=== PATIENT | female | born 1985 ===

== ENCOUNTER 2023-02-16 20:00 | Emergency (ER) | payer OTHER, SELFPAY ==
--- NOTE | ~2023-02-16 | XR_ITS ---
EXAMINATION: XR CHEST CLINICAL INFORMATION: Chest pain COMPARISON: 10/29/2019 TECHNIQUE: Frontal view of the chest was obtained. FINDINGS: No significant abnormality is noted involving the heart, lungs, mediastinum, bony thorax or soft tissues. XR/XR chest 1V IMPRESSION: Unremarkable examination.
--- NOTE | 2023-02-16 20:04 | ECG_ITS ---
Test Reason : REPEAT Blood Pressure : / mmHG Vent. Rate : 113 BPM Atrial Rate : 113 BPM P-R Int : 158 ms QRS Dur : 086 ms QT Int : 336 ms P-R-T Axes : 031 020 005 degrees QTc Int : 460 ms Sinus tachycardia Possible Left atrial enlargement When compared to the previous EKG of No significant changes seen Referred By: Placido Mitchell Electronically Signed By:ARLETTE BEACH MD
--- NOTE | 2023-02-16 20:06 | ED.CHESTPAIN ---
HPI - Chest Pain General Chief Complaint: Chest Pain Stated Complaint: chest pain,sob Time Seen by Provider: 02/16/23 20:04 Source: patient, family and diagnostic assistant Mode of arrival: ambulatory Limitations: no limitations History of Present Illness HPI narrative: 38-year-old female known history of anxiety brought in with her family for complaint coughing and chest pain. Patient was complaining of coughing with chest pain for the past 2 days, while patient was in triage patient passed out and start to hyperventilate with hand spasm appeared very anxious patient is holding her mid chest complaining of chest pain. Pain has been constant for the past 2 days accompanied with nonproductive cough, no fever no chills, no sick contacts, no recent travel. Patient with known history of anxiety. Related Data Previous Rx's Medication Instructions Recorded albuterol sulfate 2.5 mg/3 mL 2.5 mg (3 mL) inhalation Q4-6H PRN 02/16/23 (0.083 %) solution for nebulization shortness of breath or wheezing #90 mL nirmatrelvir 300 mg (150 mg See Rx Instructions PO .COMPLEX 02/16/23 x2)-ritonavir 100 mg tablet,dose #30 ea pack(EUA) (Paxlovid) Allergies Allergy/AdvReac Type Severity Reaction Status Date / Time No Known Allergies Allergy Unverified 06/07/20 16:46 Review of Systems Review of Systems: All other systems are reviewed and are negative Constitutional: Reports as per HPI and Reports no additional constitutional complaints Eyes: Reports as per HPI and Reports no additional eye complaints Reports system reviewed and no additional complaints, except as documented Cardiovascular: Reports as per HPI and Reports no additional cardiovascular complaints Respiratory: Reports as per HPI and Reports no additional respiratory complaints Gastrointestinal: Reports as per HPI and Reports no additional gastrointestinal complaints Genitourinary: Reports no additional female genitourinary complaints Musculoskeletal: Reports no additional musculoskeletal complaints Skin/Breast: Reports system reviewed and no additional complaints, except as docu Psychiatric: Reports no additional psychiatric complaints Endocrine: Reports no additional endocrine complaints Hematologic/Lymphatic: Reports no additional hematologic/lymphatic complaints Allergic/Immunologic: Reports no additional allergic/immunologic complaints Reports system reviewed and no additional complaints, except as documented and Reports Abnormal speech present [facility] Social History Social History Alcohol intake: never Smoked in Last 30 Days: No Advance Directives: No Advance Directives Information Provided: Yes Physical Exam Vital Signs: Vital Signs: Last Vital Signs Temp 97.8 F 02/16/23 20:10 Pulse 115 H 02/16/23 21:10 Resp 21 H 02/16/23 21:10 BP 187/95 H 02/16/23 20:10 Pulse Ox 100 02/16/23 20:10 O2 Del Method Nasal Cannula 02/16/23 20:10 Oxygen Flow Rate 2 02/16/23 20:10 BMI result Body Mass Index 39.6 Vital signs have been reviewed as appeared to be correct. Blood pressure elevated. Heart rate elevated. Respiration rate normal. Temperature normal. Oxygen saturation normal. Appearance: Extremely anxious, hyperventilating, metacarpophalangeal spasm, Alert. Oriented X3. No acute distress. Head: Normal external exam. Normocephalic. Atraumatic. No Wilde signs noted. No raccoon eyes noted Eyes: PERRLA. EOMI. Conjunctiva and sclera normal. Eyelids normal. ENT: TM's Normal. Pharynx normal. Uvula midline. Moist mucous membranes. No trismus noted. No drooling noted. No muffled voice noted. Neck: Normal inspection. Neck supple. FROM. No adenopathy. Thyroid Normal. No meningeal signs. No neck mass noted. CVS: Normal heart rate and rhythm. Heart sound normal. No murmurs noted. Pulses normal throughout. Respiratory: No respiratory distress. Painless inspiration. Breath sounds normal. No wheezes/rales/rhonchi noted. Chest nontender. No accessory muscle usage noted or decreased air movement noted. Abdomen: Soft and nontender. Bowel sounds normal in all 4 quadrants. No distention noted. No organomegaly noted. No visible injury noted. Back: No CVA tenderness. Full range of motion noted. Skin: Skin warm and dry. Normal skin color. Normal skin turgor. No rashes/lesions/lacerations noted. Extremities: No lower extremity edema. Extremities exhibit normal range of motion. Extremities nontender. Neuro: Oriented X 3. Cranial nerve exam: II-XII are grossly intact No motor deficit. No sensory deficit. Reflexes normal. Course Course Course Narrative: 38-year-old female been having shortness of breath and coughing for the past 2-3 days patient thus is best for COVID, patient presented with acute panic attack probably triggered by coughing, patient at low risk for PE no recent travel, no recent prolonged immobilization, no recent lower extremities tenderness or swelling and patient has a negative D-dimer. Cardiac work up was also unremarkable will discharge the patient on Paxlovid and albuterol. Medications Administered Discontinued Medications Generic Name Dose Route Start Last Admin Trade Name Freq PRN Reason Stop Dose Admin Albuterol Sulfate 2.5 mg 02/16/23 20:56 02/16/23 21:09 Albuterol Sulfate (0.083%) 2.5 Mg/3 Ml Vial.Neb INHALE 02/16/23 20:57 2.5 mg ONCE ONE Administration Albuterol/Ipratropium 3 ml 02/16/23 20:56 02/16/23 21:09 Albuterol/Iprat 2.5/0.5mg 3 Ml Ampul.Neb INHALE 02/16/23 20:57 3 ml ONCE ONE Administration Sodium Chloride 1,000 mls @ 999 mls/hr 02/16/23 20:04 02/16/23 20:10 Ns IV 02/16/23 21:04 999 mls/hr .Q1H1M ONE Administration Lorazepam 2 mg 02/16/23 20:04 02/16/23 20:10 Lorazepam 2 Mg/Ml Vial IVPUSH 02/16/23 20:05 2 mg ONCE ONE Administration Prednisone 40 mg 02/16/23 20:56 02/16/23 21:15 Prednisone 20 Mg Tablet PO 02/16/23 20:57 40 mg ONCE ONE Administration Medical Decision Making Differential Diagnosis Differential Diagnoses: The differential diagnosis associated with the presentation includes (ACS, pulmonary embolism, pneumonia, pneumothorax, COVID-19 infection, electrolyte abnormalities, severe anemia.) Admission/Observation Consideration of admission/observation: Escalation of care including admission/observation considered Lab Data MDM Lab Attestation statement: I reviewed the patient's lab results. 02/16/23 20:06 02/16/23 20:06 Labs: Lab Results 02/16/23 02/16/23 02/16/23 Range/Units 20:06 20:06 20:06 WBC 11.7 H (4.8-10.8) X10*3/uL RBC 4.34 (4.20-5.50) X10*6/uL Hgb 11.5 L (12.0-16.0) g/dl Hct 37.1 (37.0-47.0) % MCV 85.5 (80.0-98.0) fL MCH 26.5 L (27.0-33.0) pg MCHC 31.0 (31.0-35.0) g/dl RDW 12.4 (11.0-16.0) % Plt Count 398 (160-400) X10*3/uL MPV 10.0 (9.4-12.3) fL Immature Gran % (Auto) 0.3 (0.0-0.4) % Neut % (Auto) 64.7 (45-73) % Lymph % (Auto) 23.5 (20-40) % [place] % (Auto) 9.5 (2-11) % Eos % (Auto) 1.5 (0-4) % Baso % (Auto) 0.5 (0-2) % Lymph # (Auto) 2.8 (1.2-4.9) X10*3/uL [place] # (Auto) 1.1 (0.1-1.2) X10*3/uL Eos # (Auto) 0.2 (0.0-0.4) X10*3/uL Baso # (Auto) 0.1 (0.0-0.2) X10*3/uL Abs Immat Gran (auto) 0.03 (0.00-0.03) X10*3/uL Absolute Neuts (auto) 7.6 (2.0-8.3) x10*3/uL Absolute Nucleated RBC 0.000 (0.0-0.012) X10*3/uL Nucleated RBC % (auto) 0.0 (0.0-0.2) /100WBC D-Dimer High Sensitivty NG/ML Sodium 136 (135-145) mmol/L Potassium 4.1 (3.3-5.1) mmol/L Chloride 102 (96-108) mmol/L Carbon Dioxide 20 L (22-29) mmol/L Anion Gap 18 (12-20) BUN 13 (9-16) mg/dL Creatinine 0.84 (0.5-1.4) mg/dL Estim Creat Clear Calc 104.1 Estimated GFR > 60 Random Glucose 182 H (60-115) mg/dL Calcium 9.7 (8.4-10.2) mg/dL Total Bilirubin 0.3 (0.0-1.0) mg/dL Direct Bilirubin 0.1 (0.0-0.5) mg/dL AST 23 (5-31) U/L ALT 29 (0-31) U/L Alkaline Phosphatase 97 (39-117) U/L Troponin I High Sens < 2.7 (<3.5-17.0) ng/L B-Natriuretic Peptide (<100) pg/mL Total Protein 8.4 H (6.5-8.0) g/dL Albumin 4.3 (3.5-5.0) g/dL Lipase 21 (8-78) U/L Urine Color Urine Appearance Urine pH (5.0-9.0) Ur Specific [place] (1.005-1.025) Urine Protein (Neg-Trace) mg/dL Urine Glucose (UA) (Negative) mg/dL Urine Ketones (Negative) mg/dL Urine Blood (Negative) Urine Nitrite (Negative) Ur Leukocyte Esterase (Negative) Influenza Type A (PCR) (Negative) Influenza Type B (PCR) (Negative) RSV RNA Qual (PCR) (Negative) SARS-CoV-2 RNA (RT-PCR) (Negative) 02/16/23 02/16/23 02/16/23 Range/Units 20:06 20:06 20:19 WBC (4.8-10.8) X10*3/uL RBC (4.20-5.50) X10*6/uL Hgb (12.0-16.0) g/dl Hct (37.0-47.0) % MCV (80.0-98.0) fL MCH (27.0-33.0) pg MCHC (31.0-35.0) g/dl RDW (11.0-16.0) % Plt Count (160-400) X10*3/uL MPV (9.4-12.3) fL Immature Gran % (Auto) (0.0-0.4) % Neut % (Auto) (45-73) % Lymph % (Auto) (20-40) % [place] % (Auto) (2-11) % Eos % (Auto) (0-4) % Baso % (Auto) (0-2) % Lymph # (Auto) (1.2-4.9) X10*3/uL [place] # (Auto) (0.1-1.2) X10*3/uL Eos # (Auto) (0.0-0.4) X10*3/uL Baso # (Auto) (0.0-0.2) X10*3/uL Abs Immat Gran (auto) (0.00-0.03) X10*3/uL Absolute Neuts (auto) (2.0-8.3) x10*3/uL Absolute Nucleated RBC (0.0-0.012) X10*3/uL Nucleated RBC % (auto) (0.0-0.2) /100WBC D-Dimer High Sensitivty < 150 NG/ML Sodium (135-145) mmol/L Potassium (3.3-5.1) mmol/L Chloride (96-108) mmol/L Carbon Dioxide (22-29) mmol/L Anion Gap (12-20) BUN (9-16) mg/dL Creatinine (0.5-1.4) mg/dL Estim Creat Clear Calc Estimated GFR Random Glucose (60-115) mg/dL Calcium (8.4-10.2) mg/dL Total Bilirubin (0.0-1.0) mg/dL Direct Bilirubin (0.0-0.5) mg/dL AST (5-31) U/L ALT (0-31) U/L Alkaline Phosphatase (39-117) U/L Troponin I High Sens (<3.5-17.0) ng/L B-Natriuretic Peptide < 10 (<100) pg/mL Total Protein (6.5-8.0) g/dL Albumin (3.5-5.0) g/dL Lipase (8-78) U/L Urine Color Urine Appearance Urine pH (5.0-9.0) Ur Specific [place] (1.005-1.025) Urine Protein (Neg-Trace) mg/dL Urine Glucose (UA) (Negative) mg/dL Urine Ketones (Negative) mg/dL Urine Blood (Negative) Urine Nitrite (Negative) Ur Leukocyte Esterase (Negative) Influenza Type A (PCR) NEGATIVE (Negative) Influenza Type B (PCR) NEGATIVE (Negative) RSV RNA Qual (PCR) NEGATIVE (Negative) SARS-CoV-2 RNA (RT-PCR) POSITIVE A (Negative) 02/16/23 Range/Units 21:10 WBC (4.8-10.8) X10*3/uL RBC (4.20-5.50) X10*6/uL Hgb (12.0-16.0) g/dl Hct (37.0-47.0) % MCV (80.0-98.0) fL MCH (27.0-33.0) pg MCHC (31.0-35.0) g/dl RDW (11.0-16.0) % Plt Count (160-400) X10*3/uL MPV (9.4-12.3) fL Immature Gran % (Auto) (0.0-0.4) % Neut % (Auto) (45-73) % Lymph % (Auto) (20-40) % [place] % (Auto) (2-11) % Eos % (Auto) (0-4) % Baso % (Auto) (0-2) % Lymph # (Auto) (1.2-4.9) X10*3/uL [place] # (Auto) (0.1-1.2) X10*3/uL Eos # (Auto) (0.0-0.4) X10*3/uL Baso # (Auto) (0.0-0.2) X10*3/uL Abs Immat Gran (auto) (0.00-0.03) X10*3/uL Absolute Neuts (auto) (2.0-8.3) x10*3/uL Absolute Nucleated RBC (0.0-0.012) X10*3/uL Nucleated RBC % (auto) (0.0-0.2) /100WBC D-Dimer High Sensitivty NG/ML Sodium (135-145) mmol/L Potassium (3.3-5.1) mmol/L Chloride (96-108) mmol/L Carbon Dioxide (22-29) mmol/L Anion Gap (12-20) BUN (9-16) mg/dL Creatinine (0.5-1.4) mg/dL Estim Creat Clear Calc Estimated GFR Random Glucose (60-115) mg/dL Calcium (8.4-10.2) mg/dL Total Bilirubin (0.0-1.0) mg/dL Direct Bilirubin (0.0-0.5) mg/dL AST (5-31) U/L ALT (0-31) U/L Alkaline Phosphatase (39-117) U/L Troponin I High Sens (<3.5-17.0) ng/L B-Natriuretic Peptide (<100) pg/mL Total Protein (6.5-8.0) g/dL Albumin (3.5-5.0) g/dL Lipase (8-78) U/L Urine Color Yellow Urine Appearance Clear Urine pH 6.5 (5.0-9.0) Ur Specific [place] 1.010 (1.005-1.025) Urine Protein Negative (Neg-Trace) mg/dL Urine Glucose (UA) Negative (Negative) mg/dL Urine Ketones Negative (Negative) mg/dL Urine Blood Negative (Negative) Urine Nitrite Negative (Negative) Ur Leukocyte Esterase Negative (Negative) Influenza Type A (PCR) (Negative) Influenza Type B (PCR) (Negative) RSV RNA Qual (PCR) (Negative) SARS-CoV-2 RNA (RT-PCR) (Negative) Independent Interpretation I performed an independent interpretation of an: EKG (Sinus tachycardia at 113 beats per minutes, normal axis deviation, no ST-T changes.) and Plain X-Ray (Chest: No acute intrathoracic pathology.) Radiology Impression Discussion of test interpretation with radiology: I have reviewed the radiologist's reading. Discharge Plan Discharge Clinical Impression: COVID-19, Panic attack Patient Disposition: Home, Self-Care Instructions: COVID-19 (Coronavirus Disease 2019) (ED) Additional Instructions: Frequent hand washing, wear the mask at all times, keep social distancing, self-quarantine, drink plenty of hot drinks. Prescriptions: New Paxlovid (EUA) 300 mg (150 mg x 2)-100 mg tablets,dose pack See Rx Instructions .ROUTE .COMPLEX Qty: 30 0RF Rx Instructions: take TWO 150 mg tablets of nirmatrelvir with ONE 100 mg tablet of ritonavir twice daily for 5 days albuterol sulfate 2.5 mg /3 mL (0.083 %) solution for nebulization 2.5 mg inhalation Q4-6H PRN (Reason: shortness of breath or wheezing) Qty: 90 0RF Referrals: Rosalie Parson MD [Primary Care Provider] -
[2023-02-16 20:10] VITALS: BP 187/95; PULSE 133; RESP 19; TEMP 36.6; O2SAT 100; BMI 39.6
[2023-02-16] MEDS: 0.9 % Sodium Chloride 1,000 ML 999 ML IV (20:10)
[2023-02-16] MEDS: LORazepam 2 MG/ML VIAL IVPUSH (20:10)
[2023-02-16 20:12] LABS: MANUAL DIFF FLAG NO
[2023-02-16 20:14] VITALS: RESP 45
[2023-02-16 20:17] LABS: Basophils Absolute Auto 0.1 X10*3/uL (0.0-0.2); Basophils Percent Auto 0.5 % (0-2); Eosinophils Absolute Auto 0.2 X10*3/uL (0.0-0.4); Eosinophils Percent Auto 1.5 % (0-4); Hematocrit 37.1 % (37.0-47.0); Hemoglobin 11.5 g/dl (12.0-16.0); Imm Gran Abs Auto 0.03 X10*3/uL (0.00-0.03); Imm Gran Pct Auto 0.3 % (0.0-0.4); Lymphocytes Absolute Auto 2.8 X10*3/uL (1.2-4.9); Lymphocytes Percent Auto 23.5 % (20-40); Mean Corpuscular Hemoglobin 26.5 pg (27.0-33.0); Mean Corpuscular Volume 85.5 fL (80.0-98.0); Monocytes Absolute Auto 1.1 X10*3/uL (0.1-1.2); Monocytes Percent Auto 9.5 % (2-11); Neutrophils Absolute Auto 7.6 x10*3/uL (2.0-8.3); Neutrophils Percent Auto 64.7 % (45-73); Platelet Count 398 X10*3/uL (160-400); Red Blood Count 4.34 X10*6/uL (4.20-5.50); Red Cell Distribution Width 12.4 % (11.0-16.0); White Blood Count 11.7 X10*3/uL (4.8-10.8)
--- NOTE | 2023-02-16 20:21 | MHC.EDTECH ---
This tech performed an EKG on this Pt upon arrival @1908. Due to patient moving and not being able to stand still a repeat EKG was ordered by .
[2023-02-16 20:30] LABS: Alanine Aminotransferase 29 U/L (0-31); Albumin Level 4.3 g/dL (3.5-5.0); Alkaline Phosphatase 97 U/L (39-117); Anion Gap 18 (12-20); Aspartate Amino Transferase 23 U/L (5-31); Bilirubin Direct 0.1 mg/dL (0.0-0.5); Bilirubin Total 0.3 mg/dL (0.0-1.0); Blood Urea Nitrogen 13 mg/dL (9-16); Calcium 9.7 mg/dL (8.4-10.2); Carbon Dioxide 20 mmol/L (22-29); Chloride 102 mmol/L (96-108); Creatinine Clr Calc Pharmacy 104.1; Estimated Glomerular Filt Rate > 60; Glucose Random 182 mg/dL (60-115); Lipase 21 U/L (8-78); Potassium 4.1 mmol/L (3.3-5.1); Sodium 136 mmol/L (135-145); Total Protein 8.4 g/dL (6.5-8.0)
[2023-02-16 20:35] LABS: B Type Natriuretic Peptide < 10 pg/mL (<100)
[2023-02-16 20:41] LABS: Troponin-I High Sensitivity < 2.7 ng/L (<3.5-17.0)
[2023-02-16 20:55] LABS: Influenza A PCR NEGATIVE (Negative); Influenza B PCR NEGATIVE (Negative); Resp Syncy Virus RNA Qual PCR NEGATIVE (Negative); SARS COV2 PCR INHOUSE POSITIVE (Negative)
[2023-02-16] MEDS: Albuterol Sulfate (0.083%) 2.5 MG/3 ML VIAL.NEB INHALE (21:09)
[2023-02-16] MEDS: Albuterol/Iprat 2.5/0.5MG 3 ML AMPUL.NEB INHALE (21:09)
[2023-02-16 21:10] VITALS: PULSE 115; RESP 21; O2SAT 100
[2023-02-16] MEDS: predniSONE 20 MG TABLET 40 MG PO (21:15)
[2023-02-16 21:17] LABS: Appearance Urine Clear; Color Urine Yellow; Glucose Urine UA Negative (Negative); Leukocyte Esterase Urine Negative (Negative); Nitrite Urine Negative (Negative); PH 6.5 (5.0-9.0); Urine Blood Negative (Negative); Urine Ketones Negative (Negative); Urine Protein Negative (Neg-Trace)
[2023-02-16 21:42] LABS: D Dimer High Sensitivity < 150 NG/ML
[2023-02-16 22:33] VITALS: BP 143/89; PULSE 128; RESP 19; TEMP 36.8; O2SAT 98
--- NOTE | 2023-02-16 22:34 | PC.NURSE ---
Dr. Mitchell informed of patient HR 115-128, no new orders at this time,.
== END 2023-02-16 22:37 | disposition home or self-care (01) ==
PROVIDERS: Emergency Provider Emergency Medicine; PCP Internal Medicine
DX: R07.89 Other chest pain (principal); U07.1 COVID-19; R06.02 Shortness of breath; F41.0 Panic disorder [episodic paroxysmal anxiety]; Z79.899 Other long term (current) drug therapy
CPT/HCPCS: 0241U; 36415; 71045; 80048; 80076; 81003; 83690; 83880; 84484; 85025; 85379; 93005; 94640; 96361; 96374; 99284; 99285; J2060

== ENCOUNTER 2023-02-26 16:46 | Emergency (ER) | payer OTHER, SELFPAY ==
[2023-02-26] VITALS (10 sets, daily range): BP systolic 127–175; BP diastolic 83–100; PULSE 91–133; RESP 12–20; TEMP 36.7–37.2; O2SAT 96–100; BMI 36.1
--- NOTE | ~2023-02-26 | XR_ITS ---
EXAMINATION: XR CHEST CLINICAL INFORMATION: Chest pain. COMPARISON: 02/16/2023 chest radiograph. TECHNIQUE: Frontal view of the chest was obtained. FINDINGS: No significant abnormality is noted involving the heart, lungs, mediastinum, bony thorax or soft tissues. XR/XR chest 1V IMPRESSION: No acute cardiopulmonary process.
--- NOTE | ~2023-02-26 | CT_ITS ---
EXAMINATION: CT ANGIOGRAM OF THE CHEST WITH AND WITHOUT CONTRAST (CT PULMONARY ANGIOGRAM FOR PE) CLINICAL INFORMATION: Reason for Exam chest pain tachycardia COMPARISON: Previous chest x-ray from earlier the same day TECHNIQUE: Prior to contrast administration, noncontrast localization images were obtained. Subsequently, multidetector volumetric imaging was performed from the thoracic inlet to below the diaphragms following the administration of 65 mL Omnipaque 350 intravenous contrast. No contrast reaction reported Sagittal, coronal, and MIP oblique sagittal reformatted images were obtained on the CT workstation, uploaded to PACS, and reviewed. This CT examination was performed using dose optimization techniques as appropriate, variously including the following: *Automated exposure control *Adjustment of mA and/or kV according to patient size (this includes techniques or standardized protocols for targeted exams where dose is matched to indication/reason for exam; i.e. extremities or head) *Use of iterative reconstruction technique Total exam dose-length product 343 mGy-cm FINDINGS: QUALITY OF STUDY/CONTRAST BOLUS: Satisfactory. PULMONARY ARTERIES: No pulmonary emboli. THORACIC AORTA: No aneurysm. LUN mm RLL calcified nodule 180/7. 3 mm noncalcified nodule 185/7. PLEURA: No pleural effusion or pneumothorax. MEDIASTINUM: Normal heart size. No pericardial effusion. No hilar or mediastinal lymphadenopathy. No evidence of septal bowing or right heart strain. CORONARY ARTERY CALCIFICATION: None visualized on this study. CHEST WALL/AXILLA: No axillary or internal mammary lymphadenopathy. OSSEOUS STRUCTURES: No acute or suspicious osseous abnormality. UPPER ABDOMEN: Fatty infiltration of the liver. No reflux of contrast into the hepatic veins to suggest elevated right heart pressures. CT/CT angio chest PE protocol IMPRESSION: No evidence of Pulmonary emboli. VTE: Negative
--- NOTE | 2023-02-26 16:58 | ECG_ITS ---
Test Reason : CHEST PAIN Blood Pressure : / mmHG Vent. Rate : 129 BPM Atrial Rate : 129 BPM P-R Int : 150 ms QRS Dur : 082 ms QT Int : 286 ms P-R-T Axes : 053 026 010 degrees QTc Int : 418 ms Sinus tachycardia Possible Left atrial enlargement Borderline ECG When compared with ECG of 16-FEB-2023 20:40, No significant change was found Referred By: Ric Toro Electronically Signed By:Wilfrid Magana
--- NOTE | 2023-02-26 16:59 | ED_ITS ---
HPI - Chest Pain General Chief Complaint: Chest Pain Stated Complaint: Chest pain/COVID+2 weeks ago Time Seen by Provider: 02/26/23 17:16 Source: patient Mode of arrival: ambulatory Limitations: no limitations History of Present Illness HPI narrative: 38-year-old female presents emergency department 2 weeks after being diagnosed COVID patient is very anxious about her cough when she is seen here 2 weeks ago patient started on that since nose given a breathing treatment she states she has been having worsening right-sided chest pain starts in the epigastric region right side she has any fevers chills denies any falls or injuries she does not have any history of asthma. complaint: chest pain Related Data Home Medications Medication Instructions Recorded Confirmed lorazepam 0.5 mg tablet 0.5 mg PO BID PRN Anxiety 02/26/23 02/26/23 prazosin 2 mg capsule 2 mg PO BEDTIME 02/26/23 02/26/23 risperidone 3 mg tablet 3 mg PO BEDTIME 02/26/23 02/26/23 Previous Rx's Medication Instructions Recorded albuterol sulfate 2.5 mg/3 mL 2.5 mg (3 mL) inhalation Q4-6H PRN 02/16/23 (0.083 %) solution for nebulization shortness of breath or wheezing #90 mL albuterol sulfate 90 mcg/actuation 2 puff inhalation Q4-6H PRN 02/17/23 aerosol inhaler (Ventolin HFA) shortness of breath or wheezing #8.5 grams Allergies Allergy/AdvReac Type Severity Reaction Status Date / Time No Known Allergies Allergy Verified 02/26/23 16:53 Review of Systems Review of Systems: Review of systems: General: Patient denies any fever chills recent illness or falls Musculoskeletal: Denies back pain or body aches or other injuries HEENT: denies headache, runny nose, ear pain Respiratory: denies shortness of breath, cough Cardiovascular: right sided chest pain or palpitations : denies dysuria, frequency Abdomen: no nausea vomiting denies abdominal pain Extremities: no swelling, no pain Skin: no diaphoresis Yes all other systems are reviewed and are negative [facility] Social History Social History Alcohol intake: current Alcohol intake frequency: holidays/special occasions only Smoked in Last 30 Days: No Use of substances other than those prescribed or required for medical reasons: No Advance Directives: No Advance Directives Information Provided: No Physical Exam Vital Signs: Vital Signs: Last Vital Signs Temp 98.1 F 02/26/23 21:05 Pulse 92 02/26/23 21:05 Resp 13 02/26/23 21:05 BP 127/83 02/26/23 21:05 Pulse Ox 100 02/26/23 21:05 O2 Del Method Room Air 02/26/23 21:05 BMI result Body Mass Index 36.1 General: Well-appearing well-nourished in no signs of distress HEENT: Normocephalic atraumatic Neck: No signs of JVD, no masses no tenderness or lymphadenopathy Cardiovascular: Regular rate and rhythm Respiratory: Clear to auscultation bilaterally Abdomen: Soft nontender no masses Extremities: Normal pedal pulses no signs of edema Skin: Dry warm no rashes Back: No tenderness full ROM Course Course Course Narrative: 38-year-old female presents for evaluation chest pain. Her heart rate is noted be as high as 144 in triage. I ordered labs, chest x-ray, EKG. Patient was brought straight back to room 17 Reevaluation(s) Reevaluation #1: 1825 patient's heart rate improved from the 140s to 118 with 1 L fluid and a 2 L of fluid patient does have a mild lactic acidosis I will repeat after the 2 L of fluid I will continue with the CTA of the chest. Reevaluation #2: 2004 Still pending CTA HR is much improved she admits to not eating or drinking much. I will repeat troponin and lactic acid level. Reevaluation #3: 2041 Prolonged delay with [facility] to get a cT read. HR has improved repeat lactic and troponin pending at this time. Additional Reevaluation(s): 2126 CTA is read as negative patient was still wait for a the 3rd lactic acid after 4 L fluid patient's heart is 93 she states she feels much better I did send the patient to Dr. Page. Medications Administered Generic Name Dose Route Start Last Admin Trade Name Freq PRN Reason Stop Dose Admin Sodium Chloride 1,000 mls @ 999 mls/hr 02/26/23 21:15 02/26/23 21:05 Ns IV 02/26/23 22:15 999 mls/hr .Q1H1M INDY Administration Discontinued Medications Generic Name Dose Route Start Last Admin Trade Name Abdullahi PRN Reason Stop Dose Admin Acetaminophen 650 mg 02/26/23 17:17 02/26/23 17:28 Acetaminophen 325 Mg Tablet PO 02/26/23 17:18 650 mg ONCE ONE Administration Sodium Chloride 1,000 mls @ 999 mls/hr 02/26/23 17:30 02/26/23 18:34 Ns IV 02/26/23 18:30 Infused .Q1H1M INDY Infusion Sodium Chloride 1,000 mls @ 999 mls/hr 02/26/23 18:30 02/26/23 19:33 Ns IV 02/26/23 19:30 Infused .Q1H1M INDY Infusion Sodium Chloride 1,000 mls @ 999 mls/hr 02/26/23 20:00 02/26/23 21:07 Ns IV 02/26/23 21:00 Infused .Q1H1M INDY Infusion Iohexol 100 ml 02/26/23 19:13 02/26/23 19:13 Iohexol 350 Mg/Ml 100 Ml Infus..Btl IV 02/26/23 19:14 65 ml ONCE ONE Administration Ketorolac Tromethamine 15 mg 02/26/23 17:17 02/26/23 17:28 Ketorolac Tromethamine 15 Mg/Ml Vial IVPUSH 02/26/23 17:18 15 mg ONCE ONE Administration Medical Decision Making Medical Decision Making [facility] Narrative: 38-year-old vaccinated female with COVID 2 weeks ago she states she has since tested negative but still can not having pain to her chest concerned this could be PE also the patient for CTA will check labs x-ray was done initially upon arrival was unremarkable I will give the patient fluids she is tachycardic she is not hypoxic fortunately. Differential Diagnosis Differential Diagnoses: The differential diagnosis associated with the presentation includes Complications of COVID bronchitis pleurisy or PE. Admission/Observation Consideration of admission/observation: Escalation of care including admission/observation considered Consult Healthcare Provider Management of the patient was discussed with: Hospitalist Dr. Morales about the lactic chest pain and story. He wants to get a 3rd lactic acid after 3 liters and to get another liter of fluid. I will check both. CT is still pending. WE both think this could be multifactorial with albuterol and dehydration. Lab Data [facility] Lab Attestation statement: I reviewed the patient's lab results. 02/26/23 17:14 02/26/23 17:14 Labs: Lab Results 02/26/23 02/26/23 02/26/23 Range/Units 17:14 17:14 17:14 WBC 11.5 H (4.8-10.8) X10*3/uL RBC 4.73 (4.20-5.50) X10*6/uL Hgb 12.4 (12.0-16.0) g/dl Hct 40.2 (37.0-47.0) % MCV 85.0 (80.0-98.0) fL MCH 26.2 L (27.0-33.0) pg MCHC 30.8 L (31.0-35.0) g/dl RDW 12.4 (11.0-16.0) % Plt Count 434 H (160-400) X10*3/uL MPV 9.8 (9.4-12.3) fL Immature Gran % (Auto) 0.5 H (0.0-0.4) % Neut % (Auto) 72.6 (45-73) % Lymph % (Auto) 18.9 L (20-40) % [place] % (Auto) 7.1 (2-11) % Eos % (Auto) 0.6 (0-4) % Baso % (Auto) 0.3 (0-2) % Lymph # (Auto) 2.2 (1.2-4.9) X10*3/uL [place] # (Auto) 0.8 (0.1-1.2) X10*3/uL Eos # (Auto) 0.1 (0.0-0.4) X10*3/uL Baso # (Auto) 0.0 (0.0-0.2) X10*3/uL Abs Immat Gran (auto) 0.06 H (0.00-0.03) X10*3/uL Absolute Neuts (auto) 8.4 H (2.0-8.3) x10*3/uL Absolute Nucleated RBC 0.000 (0.0-0.012) X10*3/uL Nucleated RBC % (auto) 0.0 (0.0-0.2) /100WBC PT 11.2 (10.0-13.1) SEC INR 1.0 (0.9-1.1) APTT 31.3 (26.0-36.4) SEC D-Dimer High Sensitivty NG/ML Sodium 136 (135-145) mmol/L Potassium 4.4 (3.3-5.1) mmol/L Chloride 101 (96-108) mmol/L Carbon Dioxide 23 (22-29) mmol/L Anion Gap 16 (12-20) BUN 9 (9-16) mg/dL Creatinine 0.78 (0.5-1.4) mg/dL Estim Creat Clear Calc 106.6 Estimated GFR > 60 Random Glucose 191 H (60-115) mg/dL Lactic Acid (0.5-2.0) mmol/L Lactic Acid F/U @ 2Hr (0.5-2.0) mmol/L Calcium 10.2 (8.4-10.2) mg/dL Magnesium 1.9 (1.6-2.6) mg/dL Total Bilirubin 0.3 (0.0-1.0) mg/dL AST 25 (5-31) U/L ALT 31 (0-31) U/L Alkaline Phosphatase 97 (39-117) U/L Troponin I High Sens (<3.5-17.0) ng/L Total Protein 9.3 H (6.5-8.0) g/dL Albumin 4.7 (3.5-5.0) g/dL Lipase 21 (8-78) U/L Urine Color Urine Appearance Urine pH (5.0-9.0) Ur Specific [place] (1.005-1.025) Urine Protein (Neg-Trace) mg/dL Urine Glucose (UA) (Negative) mg/dL Urine Ketones (Negative) mg/dL Urine Blood (Negative) Urine Nitrite (Negative) Ur Leukocyte Esterase (Negative) Urine Test (NEGATIVE) Influenza Type A (PCR) (Negative) Influenza Type B (PCR) (Negative) RSV RNA Qual (PCR) (Negative) SARS-CoV-2 RNA (RT-PCR) (Negative) 02/26/23 02/26/23 02/26/23 Range/Units 17:14 17:51 17:52 WBC (4.8-10.8) X10*3/uL RBC (4.20-5.50) X10*6/uL Hgb (12.0-16.0) g/dl Hct (37.0-47.0) % MCV (80.0-98.0) fL MCH (27.0-33.0) pg MCHC (31.0-35.0) g/dl RDW (11.0-16.0) % Plt Count (160-400) X10*3/uL MPV (9.4-12.3) fL Immature Gran % (Auto) (0.0-0.4) % Neut % (Auto) (45-73) % Lymph % (Auto) (20-40) % [place] % (Auto) (2-11) % Eos % (Auto) (0-4) % Baso % (Auto) (0-2) % Lymph # (Auto) (1.2-4.9) X10*3/uL [place] # (Auto) (0.1-1.2) X10*3/uL Eos # (Auto) (0.0-0.4) X10*3/uL Baso # (Auto) (0.0-0.2) X10*3/uL Abs Immat Gran (auto) (0.00-0.03) X10*3/uL Absolute Neuts (auto) (2.0-8.3) x10*3/uL Absolute Nucleated RBC (0.0-0.012) X10*3/uL Nucleated RBC % (auto) (0.0-0.2) /100WBC PT (10.0-13.1) SEC INR (0.9-1.1) APTT (26.0-36.4) SEC D-Dimer High Sensitivty < 150 NG/ML Sodium (135-145) mmol/L Potassium (3.3-5.1) mmol/L Chloride (96-108) mmol/L Carbon Dioxide (22-29) mmol/L Anion Gap (12-20) BUN (9-16) mg/dL Creatinine (0.5-1.4) mg/dL Estim Creat Clear Calc Estimated GFR Random Glucose (60-115) mg/dL Lactic Acid 3.1 H* (0.5-2.0) mmol/L Lactic Acid F/U @ 2Hr (0.5-2.0) mmol/L Calcium (8.4-10.2) mg/dL Magnesium (1.6-2.6) mg/dL Total Bilirubin (0.0-1.0) mg/dL AST (5-31) U/L ALT (0-31) U/L Alkaline Phosphatase (39-117) U/L Troponin I High Sens < 2.7 (<3.5-17.0) ng/L Total Protein (6.5-8.0) g/dL Albumin (3.5-5.0) g/dL Lipase (8-78) U/L Urine Color Urine Appearance Urine pH (5.0-9.0) Ur Specific [place] (1.005-1.025) Urine Protein (Neg-Trace) mg/dL Urine Glucose (UA) (Negative) mg/dL Urine Ketones (Negative) mg/dL Urine Blood (Negative) Urine Nitrite (Negative) Ur Leukocyte Esterase (Negative) Urine Test (NEGATIVE) Influenza Type A (PCR) (Negative) Influenza Type B (PCR) (Negative) RSV RNA Qual (PCR) (Negative) SARS-CoV-2 RNA (RT-PCR) (Negative) 02/26/23 02/26/23 02/26/23 Range/Units 18:04 18:04 18:04 WBC (4.8-10.8) X10*3/uL RBC (4.20-5.50) X10*6/uL Hgb (12.0-16.0) g/dl Hct (37.0-47.0) % MCV (80.0-98.0) fL MCH (27.0-33.0) pg MCHC (31.0-35.0) g/dl RDW (11.0-16.0) % Plt Count (160-400) X10*3/uL MPV (9.4-12.3) fL Immature Gran % (Auto) (0.0-0.4) % Neut % (Auto) (45-73) % Lymph % (Auto) (20-40) % [place] % (Auto) (2-11) % Eos % (Auto) (0-4) % Baso % (Auto) (0-2) % Lymph # (Auto) (1.2-4.9) X10*3/uL [place] # (Auto) (0.1-1.2) X10*3/uL Eos # (Auto) (0.0-0.4) X10*3/uL Baso # (Auto) (0.0-0.2) X10*3/uL Abs Immat Gran (auto) (0.00-0.03) X10*3/uL Absolute Neuts (auto) (2.0-8.3) x10*3/uL Absolute Nucleated RBC (0.0-0.012) X10*3/uL Nucleated RBC % (auto) (0.0-0.2) /100WBC PT (10.0-13.1) SEC INR (0.9-1.1) APTT (26.0-36.4) SEC D-Dimer High Sensitivty NG/ML Sodium (135-145) mmol/L Potassium (3.3-5.1) mmol/L Chloride (96-108) mmol/L Carbon Dioxide (22-29) mmol/L Anion Gap (12-20) BUN (9-16) mg/dL Creatinine (0.5-1.4) mg/dL Estim Creat Clear Calc Estimated GFR Random Glucose (60-115) mg/dL Lactic Acid (0.5-2.0) mmol/L Lactic Acid F/U @ 2Hr (0.5-2.0) mmol/L Calcium (8.4-10.2) mg/dL Magnesium (1.6-2.6) mg/dL Total Bilirubin (0.0-1.0) mg/dL AST (5-31) U/L ALT (0-31) U/L Alkaline Phosphatase (39-117) U/L Troponin I High Sens (<3.5-17.0) ng/L Total Protein (6.5-8.0) g/dL Albumin (3.5-5.0) g/dL Lipase (8-78) U/L Urine Color Yellow Urine Appearance Clear Urine pH 6.5 (5.0-9.0) Ur Specific [place] 1.010 (1.005-1.025) Urine Protein Negative (Neg-Trace) mg/dL Urine Glucose (UA) Negative (Negative) mg/dL Urine Ketones Negative (Negative) mg/dL Urine Blood Negative (Negative) Urine Nitrite Negative (Negative) Ur Leukocyte Esterase Negative (Negative) Urine Test NEGATIVE (NEGATIVE) Influenza Type A (PCR) NEGATIVE (Negative) Influenza Type B (PCR) NEGATIVE (Negative) RSV RNA Qual (PCR) NEGATIVE (Negative) SARS-CoV-2 RNA (RT-PCR) NEGATIVE (Negative) 02/26/23 02/26/23 Range/Units 20:18 20:18 WBC (4.8-10.8) X10*3/uL RBC (4.20-5.50) X10*6/uL Hgb (12.0-16.0) g/dl Hct (37.0-47.0) % MCV (80.0-98.0) fL MCH (27.0-33.0) pg MCHC (31.0-35.0) g/dl RDW (11.0-16.0) % Plt Count (160-400) X10*3/uL MPV (9.4-12.3) fL Immature Gran % (Auto) (0.0-0.4) % Neut % (Auto) (45-73) % Lymph % (Auto) (20-40) % [place] % (Auto) (2-11) % Eos % (Auto) (0-4) % Baso % (Auto) (0-2) % Lymph # (Auto) (1.2-4.9) X10*3/uL [place] # (Auto) (0.1-1.2) X10*3/uL Eos # (Auto) (0.0-0.4) X10*3/uL Baso # (Auto) (0.0-0.2) X10*3/uL Abs Immat Gran (auto) (0.00-0.03) X10*3/uL Absolute Neuts (auto) (2.0-8.3) x10*3/uL Absolute Nucleated RBC (0.0-0.012) X10*3/uL Nucleated RBC % (auto) (0.0-0.2) /100WBC PT (10.0-13.1) SEC INR (0.9-1.1) APTT (26.0-36.4) SEC D-Dimer High Sensitivty NG/ML Sodium (135-145) mmol/L Potassium (3.3-5.1) mmol/L Chloride (96-108) mmol/L Carbon Dioxide (22-29) mmol/L Anion Gap (12-20) BUN (9-16) mg/dL Creatinine (0.5-1.4) mg/dL Estim Creat Clear Calc Estimated GFR Random Glucose (60-115) mg/dL Lactic Acid (0.5-2.0) mmol/L Lactic Acid F/U @ 2Hr 3.0 H* (0.5-2.0) mmol/L Calcium (8.4-10.2) mg/dL Magnesium (1.6-2.6) mg/dL Total Bilirubin (0.0-1.0) mg/dL AST (5-31) U/L ALT (0-31) U/L Alkaline Phosphatase (39-117) U/L Troponin I High Sens < 2.7 (<3.5-17.0) ng/L Total Protein (6.5-8.0) g/dL Albumin (3.5-5.0) g/dL Lipase (8-78) U/L Urine Color Urine Appearance Urine pH (5.0-9.0) Ur Specific [place] (1.005-1.025) Urine Protein (Neg-Trace) mg/dL Urine Glucose (UA) (Negative) mg/dL Urine Ketones (Negative) mg/dL Urine Blood (Negative) Urine Nitrite (Negative) Ur Leukocyte Esterase (Negative) Urine Test (NEGATIVE) Influenza Type A (PCR) (Negative) Influenza Type B (PCR) (Negative) RSV RNA Qual (PCR) (Negative) SARS-CoV-2 RNA (RT-PCR) (Negative) Independent Interpretation I performed an independent interpretation of an: Plain X-Ray Interpretation: No acute intrathoracic process seen on portable x-ray Independent Historian Clinical information obtained from an independent historian. History obtained from or confirmed by: Spouse External Record Review External record reviewed: Inpatient record Discharge Plan Discharge Clinical Impression: Chest pain, Acute dehydration Patient Disposition: Still a Patient Instructions: Chest Pain (DC), Dehydration (ED) Additional Instructions: You were seen in the emergency room for chest pain and a rapid heart rate. Your given fluids he had a CT scan of the chest he had labs done which were showed signs of dehydration which improved with fluids. If you have any other concerns please do not hesitate to come back to the emergency room. Prescriptions: No Action albuterol sulfate 2.5 mg /3 mL (0.083 %) solution for nebulization 2.5 mg inhalation Q4-6H PRN (Reason: shortness of breath or wheezing) Qty: 90 0RF albuterol sulfate [Ventolin HFA] 90 mcg/actuation HFA aerosol inhaler 2 puff inhalation Q4-6H PRN (Reason: shortness of breath or wheezing) Qty: 8.5 0RF risperidone 3 mg Tablet 3 mg PO BEDTIME lorazepam 0.5 mg Tablet 0.5 mg PO BID PRN (Reason: Anxiety) prazosin 2 mg Capsule 2 mg PO BEDTIME
[2023-02-26 17:17] LABS: MANUAL DIFF FLAG NO
[2023-02-26 17:24] LABS: Basophils Percent Auto 0.3 % (0-2); Eosinophils Absolute Auto 0.1 X10*3/uL (0.0-0.4); Eosinophils Percent Auto 0.6 % (0-4); Hematocrit 40.2 % (37.0-47.0); Hemoglobin 12.4 g/dl (12.0-16.0); Imm Gran Abs Auto 0.06 X10*3/uL (0.00-0.03); Imm Gran Pct Auto 0.5 % (0.0-0.4); Lymphocytes Absolute Auto 2.2 X10*3/uL (1.2-4.9); Lymphocytes Percent Auto 18.9 % (20-40); Mean Corpuscular HGB Conc 30.8 g/dl (31.0-35.0); Mean Corpuscular Hemoglobin 26.2 pg (27.0-33.0); Mean Platelet Volume 9.8 fL (9.4-12.3); Monocytes Absolute Auto 0.8 X10*3/uL (0.1-1.2); Monocytes Percent Auto 7.1 % (2-11); Neutrophils Absolute Auto 8.4 x10*3/uL (2.0-8.3); Neutrophils Percent Auto 72.6 % (45-73); Platelet Count 434 X10*3/uL (160-400); Red Blood Count 4.73 X10*6/uL (4.20-5.50); Red Cell Distribution Width 12.4 % (11.0-16.0); White Blood Count 11.5 X10*3/uL (4.8-10.8)
[2023-02-26] MEDS: Ketorolac Tromethamine 15 MG/ML VIAL IVPUSH (17:28)
[2023-02-26] MEDS: 0.9 % Sodium Chloride 1,000 ML 999 ML IV ×4 (17:28→21:05)
[2023-02-26] MEDS: Acetaminophen 325 MG TABLET 650 MG PO (17:28)
[2023-02-26 17:31] LABS: Prothrombin Time 11.2 SEC (10.0-13.1)
[2023-02-26 17:33] LABS: Partial Thromboplastin Time 31.3 SEC (26.0-36.4)
[2023-02-26 17:44] LABS: Alanine Aminotransferase 31 U/L (0-31); Albumin Level 4.7 g/dL (3.5-5.0); Alkaline Phosphatase 97 U/L (39-117); Anion Gap 16 (12-20); Aspartate Amino Transferase 25 U/L (5-31); Bilirubin Total 0.3 mg/dL (0.0-1.0); Blood Urea Nitrogen 9 mg/dL (9-16); Calcium 10.2 mg/dL (8.4-10.2); Carbon Dioxide 23 mmol/L (22-29); Chloride 101 mmol/L (96-108); Creatinine Clr Calc Pharmacy 106.6; Estimated Glomerular Filt Rate > 60; Glucose Random 191 mg/dL (60-115); Lipase 21 U/L (8-78); Magnesium 1.9 mg/dL (1.6-2.6); Potassium 4.4 mmol/L (3.3-5.1); Sodium 136 mmol/L (135-145); Total Protein 9.3 g/dL (6.5-8.0)
[2023-02-26 17:48] LABS: Troponin-I High Sensitivity < 2.7 ng/L (<3.5-17.0)
--- NOTE | 2023-02-26 18:05 | MHC.EDTECH ---
patient ekg was done and read by provider ,vitals sign taken ,pt was hooked up to monitor tech ,,2nd sets of blood culture ,lactic acid ,d dimer drawn ,urine sample collected and rsv /covid all sent to lab ,pt resting quietly in bed ,family member at bedside .
[2023-02-26 18:18] LABS: Appearance Urine Clear; Color Urine Yellow; Glucose Urine UA Negative (Negative); Leukocyte Esterase Urine Negative (Negative); Nitrite Urine Negative (Negative); PH 6.5 (5.0-9.0); Urine Blood Negative (Negative); Urine Ketones Negative (Negative); Urine Protein Negative (Neg-Trace)
[2023-02-26 18:19] LABS: UPreg QC Valid YES; Urine Pregnancy NEGATIVE (NEGATIVE)
[2023-02-26 18:23] LABS: D Dimer High Sensitivity < 150 NG/ML
[2023-02-26 18:26] LABS: Lactic Acid 3.1 mmol/L (0.5-2.0)
--- NOTE | 2023-02-26 18:36 | PC.NURSE ---
20g Iv placed in RAC, pt on property assessment monitor, sinus tach. pt verbalizes continued chest pressure
--- NOTE | 2023-02-26 18:44 | PHA.MEDREC ---
Med rec complete, spoke to patient and compared with pharmacy history Pharmacy Consult ? Medication Reconciliation Pharmacy has completed the medication reconciliation.
[2023-02-26 18:50] LABS: Influenza A PCR NEGATIVE (Negative); Influenza B PCR NEGATIVE (Negative); Resp Syncy Virus RNA Qual PCR NEGATIVE (Negative); SARS COV2 PCR INHOUSE NEGATIVE (Negative)
[2023-02-26] MEDS: iohexoL 350 MG/ML 100 ML INFUS..BTL IV (19:13)
[2023-02-26 19:56] LABS: Reflex Lactate? Lactic Acid Added
--- NOTE | 2023-02-26 20:05 | PC.NURSE ---
pt reports continued chest pressure, heart rate has come down to high 90s, low 100s. pt verbalizes feeling better than before. Awaiting repeat trop and lactic
--- NOTE | 2023-02-26 20:21 | MHC.EDTECH ---
REPEATED LACTIC ACID AND TROP DRAWN AND SENT TO LAB .
[2023-02-26 21:05] LABS: Troponin-I High Sensitivity < 2.7 ng/L (<3.5-17.0)
--- NOTE | 2023-02-26 21:19 | PC.NURSE ---
pt updated on plan of care, shannauth liter of NS started, pts HR down to low 90s, states that chest pressure is better, lactic acid re-ordered for 0
--- NOTE | 2023-02-26 22:09 | MHC.EDTECH ---
2200 rounding done ,vitals sign taken repeated lactic acid drawn and sent to lab ,pt family member at bedside ,AUTUMN Bethea ,said it was jennifer for pt to have ice chips .
[2023-02-26 22:21] LABS: Reflex Lactate? 2 Y
[2023-02-26 22:36] LABS: Lactic Acid 2.5 mmol/L (0.5-2.0)
--- NOTE | 2023-02-26 23:19 | ED.CHESTPAIN ---
HPI - Chest Pain General Chief Complaint: Chest Pain Stated Complaint: Chest pain/COVID+2 weeks ago Time Seen by Provider: 02/26/23 17:16 Source: patient Mode of arrival: ambulatory Limitations: no limitations Related Data Home Medications Medication Instructions Recorded Confirmed lorazepam 0.5 mg tablet 0.5 mg PO BID PRN Anxiety 02/26/23 02/26/23 prazosin 2 mg capsule 2 mg PO BEDTIME 02/26/23 02/26/23 risperidone 3 mg tablet 3 mg PO BEDTIME 02/26/23 02/26/23 Previous Rx's Medication Instructions Recorded albuterol sulfate 2.5 mg/3 mL 2.5 mg (3 mL) inhalation Q4-6H PRN 02/16/23 (0.083 %) solution for nebulization shortness of breath or wheezing #90 mL albuterol sulfate 90 mcg/actuation 2 puff inhalation Q4-6H PRN 02/17/23 aerosol inhaler (Ventolin HFA) shortness of breath or wheezing #8.5 grams Allergies Allergy/AdvReac Type Severity Reaction Status Date / Time No Known Allergies Allergy Verified 02/26/23 16:53 [facility] Social History Social History Alcohol intake: current Alcohol intake frequency: holidays/special occasions only Smoked in Last 30 Days: No Use of substances other than those prescribed or required for medical reasons: No Advance Directives: No Advance Directives Information Provided: No Physical Exam Vital Signs: Vital Signs: Last Vital Signs Temp 98.3 F 02/26/23 22:00 Pulse 91 02/26/23 22:14 Resp 18 02/26/23 22:14 BP 139/88 02/26/23 22:14 Pulse Ox 100 02/26/23 22:14 O2 Del Method Room Air 02/26/23 22:14 BMI result Body Mass Index 36.1 Medications Administered Discontinued Medications Generic Name Dose Route Start Last Admin Trade Name Freq PRN Reason Stop Dose Admin Acetaminophen 650 mg 02/26/23 17:17 02/26/23 17:28 Acetaminophen 325 Mg Tablet PO 02/26/23 17:18 650 mg ONCE ONE Administration Sodium Chloride 1,000 mls @ 999 mls/hr 02/26/23 17:30 02/26/23 18:34 Ns IV 02/26/23 18:30 Infused .Q1H1M INDY Infusion Sodium Chloride 1,000 mls @ 999 mls/hr 02/26/23 18:30 02/26/23 19:33 Ns IV 02/26/23 19:30 Infused .Q1H1M INDY Infusion Sodium Chloride 1,000 mls @ 999 mls/hr 02/26/23 20:00 02/26/23 21:07 Ns IV 02/26/23 21:00 Infused .Q1H1M INDY Infusion Sodium Chloride 1,000 mls @ 999 mls/hr 02/26/23 21:15 02/26/23 22:13 Ns IV 02/26/23 22:15 Infused .Q1H1M INDY Infusion Iohexol 100 ml 02/26/23 19:13 02/26/23 19:13 Iohexol 350 Mg/Ml 100 Ml Infus..Btl IV 02/26/23 19:14 65 ml ONCE ONE Administration Ketorolac Tromethamine 15 mg 02/26/23 17:17 02/26/23 17:28 Ketorolac Tromethamine 15 Mg/Ml Vial IVPUSH 02/26/23 17:18 15 mg ONCE ONE Administration Medical Decision Making Medical Decision Making MDM Narrative: - Lab Data 02/26/23 17:14 02/26/23 17:14 Labs: Lab Results 02/26/23 02/26/23 02/26/23 Range/Units 17:14 17:14 17:14 WBC 11.5 H (4.8-10.8) X10*3/uL RBC 4.73 (4.20-5.50) X10*6/uL Hgb 12.4 (12.0-16.0) g/dl Hct 40.2 (37.0-47.0) % MCV 85.0 (80.0-98.0) fL MCH 26.2 L (27.0-33.0) pg MCHC 30.8 L (31.0-35.0) g/dl RDW 12.4 (11.0-16.0) % Plt Count 434 H (160-400) X10*3/uL MPV 9.8 (9.4-12.3) fL Immature Gran % (Auto) 0.5 H (0.0-0.4) % Neut % (Auto) 72.6 (45-73) % Lymph % (Auto) 18.9 L (20-40) % [place] % (Auto) 7.1 (2-11) % Eos % (Auto) 0.6 (0-4) % Baso % (Auto) 0.3 (0-2) % Lymph # (Auto) 2.2 (1.2-4.9) X10*3/uL [place] # (Auto) 0.8 (0.1-1.2) X10*3/uL Eos # (Auto) 0.1 (0.0-0.4) X10*3/uL Baso # (Auto) 0.0 (0.0-0.2) X10*3/uL Abs Immat Gran (auto) 0.06 H (0.00-0.03) X10*3/uL Absolute Neuts (auto) 8.4 H (2.0-8.3) x10*3/uL Absolute Nucleated RBC 0.000 (0.0-0.012) X10*3/uL Nucleated RBC % (auto) 0.0 (0.0-0.2) /100WBC PT 11.2 (10.0-13.1) SEC INR 1.0 (0.9-1.1) APTT 31.3 (26.0-36.4) SEC D-Dimer High Sensitivty NG/ML Sodium 136 (135-145) mmol/L Potassium 4.4 (3.3-5.1) mmol/L Chloride 101 (96-108) mmol/L Carbon Dioxide 23 (22-29) mmol/L Anion Gap 16 (12-20) BUN 9 (9-16) mg/dL Creatinine 0.78 (0.5-1.4) mg/dL Estim Creat Clear Calc 106.6 Estimated GFR > 60 Random Glucose 191 H (60-115) mg/dL Lactic Acid (0.5-2.0) mmol/L Lactic Acid F/U @ 2Hr (0.5-2.0) mmol/L Calcium 10.2 (8.4-10.2) mg/dL Magnesium 1.9 (1.6-2.6) mg/dL Total Bilirubin 0.3 (0.0-1.0) mg/dL AST 25 (5-31) U/L ALT 31 (0-31) U/L Alkaline Phosphatase 97 (39-117) U/L Troponin I High Sens (<3.5-17.0) ng/L Total Protein 9.3 H (6.5-8.0) g/dL Albumin 4.7 (3.5-5.0) g/dL Lipase 21 (8-78) U/L Urine Color Urine Appearance Urine pH (5.0-9.0) Ur Specific [place] (1.005-1.025) Urine Protein (Neg-Trace) mg/dL Urine Glucose (UA) (Negative) mg/dL Urine Ketones (Negative) mg/dL Urine Blood (Negative) Urine Nitrite (Negative) Ur Leukocyte Esterase (Negative) Urine Test (NEGATIVE) Influenza Type A (PCR) (Negative) Influenza Type B (PCR) (Negative) RSV RNA Qual (PCR) (Negative) SARS-CoV-2 RNA (RT-PCR) (Negative) 02/26/23 02/26/23 02/26/23 Range/Units 17:14 17:51 17:52 WBC (4.8-10.8) X10*3/uL RBC (4.20-5.50) X10*6/uL Hgb (12.0-16.0) g/dl Hct (37.0-47.0) % MCV (80.0-98.0) fL MCH (27.0-33.0) pg MCHC (31.0-35.0) g/dl RDW (11.0-16.0) % Plt Count (160-400) X10*3/uL MPV (9.4-12.3) fL Immature Gran % (Auto) (0.0-0.4) % Neut % (Auto) (45-73) % Lymph % (Auto) (20-40) % [place] % (Auto) (2-11) % Eos % (Auto) (0-4) % Baso % (Auto) (0-2) % Lymph # (Auto) (1.2-4.9) X10*3/uL [place] # (Auto) (0.1-1.2) X10*3/uL Eos # (Auto) (0.0-0.4) X10*3/uL Baso # (Auto) (0.0-0.2) X10*3/uL Abs Immat Gran (auto) (0.00-0.03) X10*3/uL Absolute Neuts (auto) (2.0-8.3) x10*3/uL Absolute Nucleated RBC (0.0-0.012) X10*3/uL Nucleated RBC % (auto) (0.0-0.2) /100WBC PT (10.0-13.1) SEC INR (0.9-1.1) APTT (26.0-36.4) SEC D-Dimer High Sensitivty < 150 NG/ML Sodium (135-145) mmol/L Potassium (3.3-5.1) mmol/L Chloride (96-108) mmol/L Carbon Dioxide (22-29) mmol/L Anion Gap (12-20) BUN (9-16) mg/dL Creatinine (0.5-1.4) mg/dL Estim Creat Clear Calc Estimated GFR Random Glucose (60-115) mg/dL Lactic Acid 3.1 H* (0.5-2.0) mmol/L Lactic Acid F/U @ 2Hr (0.5-2.0) mmol/L Calcium (8.4-10.2) mg/dL Magnesium (1.6-2.6) mg/dL Total Bilirubin (0.0-1.0) mg/dL AST (5-31) U/L ALT (0-31) U/L Alkaline Phosphatase (39-117) U/L Troponin I High Sens < 2.7 (<3.5-17.0) ng/L Total Protein (6.5-8.0) g/dL Albumin (3.5-5.0) g/dL Lipase (8-78) U/L Urine Color Urine Appearance Urine pH (5.0-9.0) Ur Specific [place] (1.005-1.025) Urine Protein (Neg-Trace) mg/dL Urine Glucose (UA) (Negative) mg/dL Urine Ketones (Negative) mg/dL Urine Blood (Negative) Urine Nitrite (Negative) Ur Leukocyte Esterase (Negative) Urine Test (NEGATIVE) Influenza Type A (PCR) (Negative) Influenza Type B (PCR) (Negative) RSV RNA Qual (PCR) (Negative) SARS-CoV-2 RNA (RT-PCR) (Negative) 02/26/23 02/26/23 02/26/23 Range/Units 18:04 18:04 18:04 WBC (4.8-10.8) X10*3/uL RBC (4.20-5.50) X10*6/uL Hgb (12.0-16.0) g/dl Hct (37.0-47.0) % MCV (80.0-98.0) fL MCH (27.0-33.0) pg MCHC (31.0-35.0) g/dl RDW (11.0-16.0) % Plt Count (160-400) X10*3/uL MPV (9.4-12.3) fL Immature Gran % (Auto) (0.0-0.4) % Neut % (Auto) (45-73) % Lymph % (Auto) (20-40) % [place] % (Auto) (2-11) % Eos % (Auto) (0-4) % Baso % (Auto) (0-2) % Lymph # (Auto) (1.2-4.9) X10*3/uL [place] # (Auto) (0.1-1.2) X10*3/uL Eos # (Auto) (0.0-0.4) X10*3/uL Baso # (Auto) (0.0-0.2) X10*3/uL Abs Immat Gran (auto) (0.00-0.03) X10*3/uL Absolute Neuts (auto) (2.0-8.3) x10*3/uL Absolute Nucleated RBC (0.0-0.012) X10*3/uL Nucleated RBC % (auto) (0.0-0.2) /100WBC PT (10.0-13.1) SEC INR (0.9-1.1) APTT (26.0-36.4) SEC D-Dimer High Sensitivty NG/ML Sodium (135-145) mmol/L Potassium (3.3-5.1) mmol/L Chloride (96-108) mmol/L Carbon Dioxide (22-29) mmol/L Anion Gap (12-20) BUN (9-16) mg/dL Creatinine (0.5-1.4) mg/dL Estim Creat Clear Calc Estimated GFR Random Glucose (60-115) mg/dL Lactic Acid (0.5-2.0) mmol/L Lactic Acid F/U @ 2Hr (0.5-2.0) mmol/L Calcium (8.4-10.2) mg/dL Magnesium (1.6-2.6) mg/dL Total Bilirubin (0.0-1.0) mg/dL AST (5-31) U/L ALT (0-31) U/L Alkaline Phosphatase (39-117) U/L Troponin I High Sens (<3.5-17.0) ng/L Total Protein (6.5-8.0) g/dL Albumin (3.5-5.0) g/dL Lipase (8-78) U/L Urine Color Yellow Urine Appearance Clear Urine pH 6.5 (5.0-9.0) Ur Specific [place] 1.010 (1.005-1.025) Urine Protein Negative (Neg-Trace) mg/dL Urine Glucose (UA) Negative (Negative) mg/dL Urine Ketones Negative (Negative) mg/dL Urine Blood Negative (Negative) Urine Nitrite Negative (Negative) Ur Leukocyte Esterase Negative (Negative) Urine Test NEGATIVE (NEGATIVE) Influenza Type A (PCR) NEGATIVE (Negative) Influenza Type B (PCR) NEGATIVE (Negative) RSV RNA Qual (PCR) NEGATIVE (Negative) SARS-CoV-2 RNA (RT-PCR) NEGATIVE (Negative) 02/26/23 02/26/23 02/26/23 Range/Units 20:18 20:18 22:09 WBC (4.8-10.8) X10*3/uL RBC (4.20-5.50) X10*6/uL Hgb (12.0-16.0) g/dl Hct (37.0-47.0) % MCV (80.0-98.0) fL MCH (27.0-33.0) pg MCHC (31.0-35.0) g/dl RDW (11.0-16.0) % Plt Count (160-400) X10*3/uL MPV (9.4-12.3) fL Immature Gran % (Auto) (0.0-0.4) % Neut % (Auto) (45-73) % Lymph % (Auto) (20-40) % [place] % (Auto) (2-11) % Eos % (Auto) (0-4) % Baso % (Auto) (0-2) % Lymph # (Auto) (1.2-4.9) X10*3/uL [place] # (Auto) (0.1-1.2) X10*3/uL Eos # (Auto) (0.0-0.4) X10*3/uL Baso # (Auto) (0.0-0.2) X10*3/uL Abs Immat Gran (auto) (0.00-0.03) X10*3/uL Absolute Neuts (auto) (2.0-8.3) x10*3/uL Absolute Nucleated RBC (0.0-0.012) X10*3/uL Nucleated RBC % (auto) (0.0-0.2) /100WBC PT (10.0-13.1) SEC INR (0.9-1.1) APTT (26.0-36.4) SEC D-Dimer High Sensitivty NG/ML Sodium (135-145) mmol/L Potassium (3.3-5.1) mmol/L Chloride (96-108) mmol/L Carbon Dioxide (22-29) mmol/L Anion Gap (12-20) BUN (9-16) mg/dL Creatinine (0.5-1.4) mg/dL Estim Creat Clear Calc Estimated GFR Random Glucose (60-115) mg/dL Lactic Acid 2.5 H* (0.5-2.0) mmol/L Lactic Acid F/U @ 2Hr 3.0 H* (0.5-2.0) mmol/L Calcium (8.4-10.2) mg/dL Magnesium (1.6-2.6) mg/dL Total Bilirubin (0.0-1.0) mg/dL AST (5-31) U/L ALT (0-31) U/L Alkaline Phosphatase (39-117) U/L Troponin I High Sens < 2.7 (<3.5-17.0) ng/L Total Protein (6.5-8.0) g/dL Albumin (3.5-5.0) g/dL Lipase (8-78) U/L Urine Color Urine Appearance Urine pH (5.0-9.0) Ur Specific [place] (1.005-1.025) Urine Protein (Neg-Trace) mg/dL Urine Glucose (UA) (Negative) mg/dL Urine Ketones (Negative) mg/dL Urine Blood (Negative) Urine Nitrite (Negative) Ur Leukocyte Esterase (Negative) Urine Test (NEGATIVE) Influenza Type A (PCR) (Negative) Influenza Type B (PCR) (Negative) RSV RNA Qual (PCR) (Negative) SARS-CoV-2 RNA (RT-PCR) (Negative) Discharge Plan Discharge Clinical Impression: Chest pain, Acute dehydration Patient Disposition: Still a Patient Instructions: Chest Pain (DC), Dehydration (ED) Additional Instructions: You were seen in the emergency room for chest pain and a rapid heart rate. Your given fluids he had a CT scan of the chest he had labs done which were showed signs of dehydration which improved with fluids. If you have any other concerns please do not hesitate to come back to the emergency room. Prescriptions: No Action albuterol sulfate 2.5 mg /3 mL (0.083 %) solution for nebulization 2.5 mg inhalation Q4-6H PRN (Reason: shortness of breath or wheezing) Qty: 90 0RF albuterol sulfate [Ventolin HFA] 90 mcg/actuation HFA aerosol inhaler 2 puff inhalation Q4-6H PRN (Reason: shortness of breath or wheezing) Qty: 8.5 0RF risperidone 3 mg Tablet 3 mg PO BEDTIME lorazepam 0.5 mg Tablet 0.5 mg PO BID PRN (Reason: Anxiety) prazosin 2 mg Capsule 2 mg PO BEDTIME
[2023-02-27 00:11] LABS: Reflex Lactate? Lactic Acid Added
[2023-02-27 00:30] VITALS: BP 148/84; PULSE 81; RESP 16; O2SAT 100
== END 2023-02-27 00:49 | disposition home or self-care (01) ==
PROVIDERS: Physician Assistant; Emergency Provider Student in an Organized Health Care Education/Training Program; PCP Internal Medicine
DX: R07.9 Chest pain, unspecified (principal); E86.0 Dehydration; Z20.822 Contact with and (suspected) exposure to COVID-19; Z20.828 Contact with and (suspected) exposure to other viral communicable diseases
CPT/HCPCS: 0241U; 36415; 71045; 71275; 80053; 81003; 81025; 83605; 83690; 83735; 84484; 85025; 85379; 85610; 85730; 87040; 93005; 96361; 96374; 99285; J1885; Q9967

== ENCOUNTER 2023-04-09 07:19 | Outpatient (AMB) | payer OTHER, SELFPAY ==
--- NOTE | 2023-04-09 07:36 | MHC.PC.OV ---
Vital Signs 04/09/23 07:38 Height 5 ft 3 in Weight 205 lb BMI 36.3 BP 138/86 Blood Pressure Location Lt brachial Position Sitting Intake Visit Reasons: [employer]-Requesting Physical Exam Intake Note: New patient, physical exam Materials Coordinator Required: No Accompanied by: Self / Same As Patient Allergies No Known Allergies Allergy (Verified 04/09/23 07:52) Medication List - Last Reconciled 04/09/23 by Rosalie Cantu MD lorazepam 0.5 mg PO BID PRN prazosin 2 mg PO BEDTIME risperidone 3 mg PO BEDTIME Tobacco use date assessed: 04/09/23 Dental Screening Dental Screen Date: 04/09/23 Did you have a dental visit in the last 12 months?: Yes Did you have a dental problem in the last 6 months where you did not have access to dental care?: No Was dental information given to patient?: Patient has dentist HPI HPI Comments History of Present Illness Details This is a 38-year-old female with mild major depression, anxiety, impaired glucose tolerance and migraines that comes to establish care. For depression with anxiety she follows with Behavioral Health. Still has insomnia and I will add melatonin. Has elevated random blood glucose but denies any polydipsia or unintentional weight loss. Does have some polyuria as per patient. Migraines happen twice a week. No neurological deficit associated with a migraine. She is obese with a BMI of 36.3 and was advised to diet and exercise. [facility] Surgical History No pertinent past surgical history Family History Mother Diabetes Hypertension Arthritis Father No problems noted. Family/Other Mental health disorder Substance use disorder Social History (Updated 04/09/23 @ 07:56 by Rosalie Cantu MD) Housing: Apartment Alcohol intake: never Patient Tobacco Use Status: Never used Tobacco e-Cigarette/Vaping Use: Never Used Second Hand Smoke Exposure: No service: No Current occupational status: unemployed Cognitive needs: No Hearing needs: No Vision needs: No Questionnaire PHQ-9 Over the last 2 weeks, how often have you been bothered by any of the following problems? 1. Little interest or pleasure in doing things: not at all 2. Feeling down, depressed, or hopeless: several days 3. Trouble falling or staying asleep, or sleeping too much: several days 4. Feeling tired or having little energy: several days 5. Poor appetite or overeating: several days 6. Feeling bad about yourself - or that you are a failure or have let yourself or your family down: not at all 7. Trouble concentrating on things, such as reading the newspaper or watching television: not at all 8. Moving or speaking so slowly that other people could have noticed. Or the opposite - being so fidgety or restless that you have been moving around a lot more than usual: several days 9. Thoughts that you would be better off or of hurting yourself in some way: not at all Total score: 5 Depression Screening Interpretation: Positive Depression Screening Follow-up: Existing condition, In treatment and Community Mental Health Worker F/U 91327 - PHQ-9 Billing: Yes Source: Developed by Drs. Ernie Roberts, Yesy Hook, Javed Aden and colleagues, with an educational fiona from [employer]. Thrive Questionnaire Date Thrive assessed: 04/09/23 I am a: Patient What is your living situation today?: I have a steady place to live Within the past 12 months, did the food you bought not last and you didn't have the money to get more?: Never true Within the past 12 months, did you worry whether your food would run out before you got money to buy more?: Never true Do you have trouble paying for medicines?: No Do you have trouble getting transportation to medical appointments?: No Do you have trouble paying your heating and electricity bill?: No Do you have trouble taking care of your child, family member or friend?: No Do you have trouble with day-to-day activities such as bathing, preparing meals, shopping, managing finances, etc.?: No Are you currently unemployed and looking for a job?: No Are you interested in more education?: No Please select the resources that you would like help with: None Currently or been in a relationship where the following occur: no concerns reported AUDIT C Alcohol Use Questionnaire (AUDIT-C) 1. How often do you have a drink containing alcohol?: Never Total Score: 0 Score Reviewed/Action Taken: No ENIO-7 AMB Questionnaire ENIO-7 Date ENIO - 7 assessed: 04/09/23 Feeling nervous, anxious, or on edge: 1 = Several days Not being able to stop or control worryin = Not at all Worrying too much about different things: 1 = Several days Trouble relaxin = Several days Being so restless that it is hard to sit still: 0 = Not at all Becoming easily annoyed or irritable: 1 = Several days Feeling afraid as if something awful might happen: 1 = Several days Total ENIO-7 score (0-4 normal; 5-9 mild; 10-14 moderate; 15-21 severe): 5 Source: Developed by Drs. Ernie Roberts, Yesy Hook, Javed Aden and colleagues, with an educational fiona from [employer]. ENIO-7 Assessment Billing ENIO-7 Assessment Tool: ENIO-7 Assessment 06556 Review of Systems Const All systems reviewed & are unremarkable except as noted in HPI and below Eyes Reports no additional complaints, Denies change in vision and Denies other visual disturbances Card Denies chest pain at rest, Denies chest pain with activity, Denies edema, Denies irregular heart rhythm, Denies claudication, Denies dyspnea, Denies dyspnea on exertion, Denies orthopnea, Denies paroxysmal nocturnal dyspnea and Denies slow heart rate Resp Denies cough, Denies dyspnea and Denies dyspnea on exertion GI Denies abdominal pain, Denies change in bowel habits, Denies excessive flatus, Denies nausea and Denies vomiting Denies urinary incontinence, Denies urinary hesitancy and Denies urinary urgency Musc Denies abnormal gait, Denies atrophy, Denies deformity and Denies limited range of motion Skin/Breast Denies bleeding lesions, Denies changing lesions and Denies rash Neuro Denies abnormal gait and Denies lack of coordination Physical exam (Primary Care) Vital Signs: Last Vital Signs BP 138/86 04/09/23 07:38 BMI result Body Mass Index 36.3 Tobacco/Smoking Status: Tobacco use Status Tobacco use date assessed 04/09/23 04/09/23 07:51 Patient Tobacco Use Status Never used Tobacco 04/09/23 07:51 e-Cigarette/Vaping Use Never Used 04/09/23 07:51 PHQ-9: PHQ-9 Score PHQ-9: Total score 5 07/20/23 07:51 Depression Screening Interpretation: Positive Depression Screening Follow-up: Existing condition, In treatment and Community Mental Health Worker F/U Thrive Assessment: Date of Thrive Assessment Date Thrive assessed 04/09/23 04/09/23 07:51 Currently or been in a relationship where the following occur: no concerns reported Eyes General: appearance normal, both eyes and all related structures Eyelids: Yes eyelids normal Conjunctivae: conjunctivae normal Neck Neck: Yes normal visual inspection and Yes supple Resp Effort & Inspection: normal respiratory effort Auscultation: clear to auscultation bilaterally Cardio Jugular venous distension: no JVD Rate: regular rate Rhythm: regular rhythm Heart sounds: S1 normal heart sound present and S2 normal heart sound present Extrem General: Yes full ROM Assessment and Plan Assessment & Plan (1) Mild major depression: Code(s): F32.0 - Major depressive disorder, single episode, mild Plan: Continue Risperdal. Follow-up with counseling. (2) Anxiety: Code(s): F41.9 - Anxiety disorder, unspecified Plan: Continue benzodiazepines as needed. Follow-up with counseling. (3) Migraines: Code(s): G43.909 - Migraine, unspecified, not intractable, without status migrainosus Plan: Start sumatriptan as needed. (4) Impaired glucose tolerance: Code(s): R73.02 - Impaired glucose tolerance (oral) Plan: Repeat fasting blood glucose. Orders: Orders Comprehensive [place]. Panel Fast Today R73.02 - Impaired glucose tolerance (oral) Lipid Panel Today E66.9 - Obesity, unspecified, Z68.36 - Body mass index [BMI] 36.0-36.9, adult Thyroid Stimulating Hormone Today E66.9 - Obesity, unspecified, Z68.36 - Body mass index [BMI] 36.0-36.9, adult Complete Blood Count Auto Diff Today D72.829 - Elevated white blood cell count, unspecified Medications: New sumatriptan succinate do not exceed 8 doses per 24 hrs 25 mg PO Q2-4H 30 days PRN 9 tabs 2RF migraine headache G43.909 - Migraine, unspecified, not intractable, without status migrainosus melatonin 10 mg (2 x 5 mg) PO BEDTIME 30 days PRN 60 tabs 0RF sleep Coding Level of Care Code New Pt Level 4 (62429) Diagnoses Mild major depression F32.0 Anxiety F41.9 Migraines G43.909 Impaired glucose tolerance R73.02 Additional Codes ENIO-7 Assessment Billing - ENIO-7 Assessment Tool: ENIO-7 Assessment 24461 ([id number]) Time Spent (min) 24
[2023-04-09 07:38] VITALS: BP 138/86; BMI 36.3
== END 2023-04-09 08:02 | disposition home or self-care (01) ==
PROVIDERS: PCP Internal Medicine; Visit Provider Internal Medicine
DX: F32.0 Major depressive disorder, single episode, mild (principal); F41.9 Anxiety disorder, unspecified; G43.909 Migraine, unspecified, not intractable, without status migrainosus; R73.02 Impaired glucose tolerance (oral)
CPT/HCPCS: 99204

== ENCOUNTER 2023-04-09 08:12 | Outpatient (REF) | payer OTHER, SELFPAY ==
[2023-04-09 08:21] LABS: MANUAL DIFF FLAG NO
[2023-04-09 09:25] LABS: Basophils Absolute Auto 0.1 X10*3/uL (0.0-0.2); Basophils Percent Auto 0.8 % (0-2); Eosinophils Absolute Auto 0.2 X10*3/uL (0.0-0.4); Eosinophils Percent Auto 2.5 % (0-4); Hematocrit 35.7 % (37.0-47.0); Hemoglobin 10.9 g/dl (12.0-16.0); Imm Gran Abs Auto 0.03 X10*3/uL (0.00-0.03); Imm Gran Pct Auto 0.4 % (0.0-0.4); Lymphocytes Absolute Auto 2.5 X10*3/uL (1.2-4.9); Lymphocytes Percent Auto 29.3 % (20-40); Mean Corpuscular HGB Conc 30.5 g/dl (31.0-35.0); Mean Corpuscular Hemoglobin 26.6 pg (27.0-33.0); Mean Corpuscular Volume 87.1 fL (80.0-98.0); Mean Platelet Volume 10.6 fL (9.4-12.3); Monocytes Absolute Auto 0.7 X10*3/uL (0.1-1.2); Monocytes Percent Auto 8.3 % (2-11); Neutrophils Percent Auto 58.7 % (45-73); Platelet Count 400 X10*3/uL (160-400); Red Cell Distribution Width 12.5 % (11.0-16.0); White Blood Count 8.6 X10*3/uL (4.8-10.8)
[2023-04-09 10:00] LABS: Alanine Aminotransferase 26 U/L (0-31); Albumin Level 4.1 g/dL (3.5-5.0); Alkaline Phosphatase 85 U/L (39-117); Anion Gap 14 (12-20); Aspartate Amino Transferase 19 U/L (5-31); Bilirubin Total 0.3 mg/dL (0.0-1.0); Blood Urea Nitrogen 12 mg/dL (9-16); Calcium 9.6 mg/dL (8.4-10.2); Carbon Dioxide 25 mmol/L (22-29); Chloride 103 mmol/L (96-108); Cholesterol 135 mg/dL; Estimated Glomerular Filt Rate > 60; Glucose Fasting 122 mg/dL (60-99); HDL Cholesterol 46 mg/dL; LDL Cholesterol Calculated 75 mg/dl; Sodium 138 mmol/L (135-145); Thyroid Stimulating Hormone 3.02 uIU/mL (0.32-4.0); Total Protein 8.1 g/dL (6.5-8.0); Triglycerides 73 mg/dL
== END 2023-04-09 08:13 | disposition home or self-care (01) ==
LOC: HO.LAB 08:12
PROVIDERS: PCP Internal Medicine; Visit Provider Internal Medicine
DX: E66.9 Obesity, unspecified (principal); Z68.36 Body mass index [BMI] 36.0-36.9, adult; D72.829 Elevated white blood cell count, unspecified; R73.02 Impaired glucose tolerance (oral)
CPT/HCPCS: 36415; 80053; 80061; 84443; 85025

== ENCOUNTER 2023-05-06 09:32 | Outpatient (AMB) | payer OTHER, SELFPAY ==
--- NOTE | 2023-05-06 09:48 | MHC.OFFWIV ---
Intake Vital Signs 05/06/23 10:04 Height 5 ft 3 in Weight 206 lb 6 oz BMI 36.6 BP 130/74 Blood Pressure Location Lt brachial Position Sitting Pulse 61 Pulse Source Pulse Oximeter Temp 97.7 F Temp Source Temporal Artery Scan Pulse Oximetry (%) 99 Oxygen Delivery Method Room Air Intake Visit Reasons: Est/uti Intake Note: Pt is here c/o frequent urination and lower abdominal pain. Patient Tobacco Use Status: Never used Tobacco Allergies No Known Allergies Allergy (Verified 05/06/23 10:25) Medication List - Last Reconciled 05/06/23 by Andrey Aggarwal MD ferrous sulfate 325 mg PO DAILY 90 days lorazepam 0.5 mg PO BID PRN melatonin 10 mg (2 x 5 mg) PO BEDTIME PRN 30 days prazosin 2 mg PO BEDTIME risperidone 3 mg PO BEDTIME sumatriptan succinate 25 mg PO Q2-4H PRN 30 days Do you need a note to return to daycare/school/sports/work: No HPI Est/uti HPI Details Patient presents for a sick visit. Reports symptoms of increased frequency of urination, burning on urination and discomfort in the suprapubic area. Symptoms started in the past few days. No fevers or chills. No nausea or vomiting. [facility] Surgical History No pertinent past surgical history Family History Mother Diabetes Hypertension Arthritis Father No problems noted. Family/Other Mental health disorder Substance use disorder Social History (Updated 04/09/23 @ 07:56 by Rosalie Cantu MD) Housing: Apartment Alcohol intake: never Patient Tobacco Use Status: Never used Tobacco e-Cigarette/Vaping Use: Never Used Second Hand Smoke Exposure: No service: No Current occupational status: unemployed Cognitive needs: No Hearing needs: No Vision needs: No Physical Exam Vital Signs: Last Vital Signs Temp 97.7 F 05/06/23 10:04 Pulse 61 05/06/23 10:04 BP 130/74 05/06/23 10:04 Pulse Ox 99 05/06/23 10:04 Oxygen Delivery Method Room Air 05/06/23 10:04 BMI result Body Mass Index 36.6 General: Yes bladder normal to palpation and Yes no CVA tenderness Bimanual exam- vagina & uterus: bladder normal to palpation Back/Spine/Pelvis Back: no CVA tenderness Results AMB Urinalysis, Automated UA Leukoctes 0 Trevon/uL Last Edit by Mary Reed CMA on 05/06/23 09:49 UA Nitrite Negative Last Edit by Mary Reed CMA on 05/06/23 09:49 UA Urobilinogen 0.2 mg/dL Last Edit by Mary Reed CMA on 05/06/23 09:49 UA Protein 15 mg/dL Last Edit by Mary Reed, MARISELA on 05/06/23 09:49 UA pH 6.0 Last Edit by Mary Reed, MARISELA on 05/06/23 09:49 UA Blood 0 Jose J/uL Last Edit by Mary Reed, MARISELA on 05/06/23 09:49 UA Specific [place] 1.030 Last Edit by Mary Reed CMA on 05/06/23 09:49 UA Ketone Negative Last Edit by Mary Reed CMA on 05/06/23 09:49 UA Bilirubin 2 mg/dL Last Edit by Mary Reed, MARISELA on 05/06/23 09:49 UA Glucose 0 mg/dL Last Edit by Mary Reed CMA on 05/06/23 09:49 Results Reviewed Results Reviewed: Laboratory Last Values Urine pH (Auto) 6.0 05/06/23 09:48 Specific [place] (Auto) 1.030 05/06/23 09:48 Urine Protein (Auto) 15 mg/dL 05/06/23 09:48 Glucose (UA)(Auto) 0 mg/dL 05/06/23 09:48 Urine Ketones (Auto) Negative 05/06/23 09:48 Urine Blood (Auto) 0 Jose J/uL 05/06/23 09:48 Urine Nitrite (Auto) Negative 05/06/23 09:48 Urine Bilirubin (Auto) 2 mg/dL 05/06/23 09:48 Urine Urobilinogen (Auto) 0.2 mg/dL 05/06/23 09:48 Leukocyte Esterase (Auto) 0 Trevon/uL 05/06/23 09:48 Assessment & Plan Assessment & Plan (1) Urinary tract infection: Code(s): N39.0 - Urinary tract infection, site not specified Plan: Take antibiotics and Pyridium as directed. Increase fluid intake. If symptoms of burning persist, new onset of fever or lower back pain, to follow-up at the clinic. Orders: Orders AMB Urinalysis Automated Today Z13.9 - Encounter for screening, unspecified Coding Level of Care Code Est Pt Level 3 (52444) Diagnoses Urinary tract infection N39.0
[2023-05-06 10:04] VITALS: BP 130/74; PULSE 61; TEMP 36.5; O2SAT 99; BMI 36.6
== END 2023-05-06 10:55 | disposition home or self-care (01) ==
PROVIDERS: PCP Internal Medicine; Visit Provider Internal Medicine
DX: N39.0 Urinary tract infection, site not specified (principal)
CPT/HCPCS: 81003; 99213

== ENCOUNTER 2023-07-02 13:38 | Outpatient (AMB) | payer OTHER, SELFPAY ==
--- NOTE | 2023-07-02 13:41 | MHC.PC.OV ---
Vital Signs 07/02/23 13:45 Height 5 ft 3 in Weight 201 lb 2 oz BMI 35.6 BP 132/70 Blood Pressure Location Lt brachial Position Sitting Pulse 103 H Pulse Source Pulse Oximeter Pulse Oximetry (%) 99 Oxygen Delivery Method Room Air Intake Visit Reasons: Possible Reflux, Abdominal Pain Intake Note: Patient is here today for right side chest pain radiation to the back with nausea. [place] [place] [facility] but they state it could be anxiety. Per pt her prior EKG was normal. Plastics Fabricator Or Welder Required: Yes Plastics Fabricator Or Welder Language: Wood Shop Teacher Name: Cristiano ([id number]) Information Interpreted: non-clinical & clinical Night Court Magistrate: Not Required per policy Accompanied by: Self / Same As Patient Allergies No Known Allergies Allergy (Verified 07/02/23 13:45) Tobacco use date assessed: 07/02/23 Dental Screening Dental Screen Date: 07/02/23 Did you have a dental visit in the last 12 months?: Yes Did you have a dental problem in the last 6 months where you did not have access to dental care?: No Was dental information given to patient?: Patient has dentist HPI Possible Reflux, Abdominal Pain HPI Details 38-year-old female presents to the office for a sick visit. A staff nurse icu resource team through the iPad is being used. Patient is complaining of retrosternal chest pain, burping and belching. Symptoms present for the past few days. Associated symptoms of nausea. No relation to exercise. No palpitations or diaphoresis. No fevers or chills. PFSH Surgical History No pertinent past surgical history Family History Mother Diabetes Hypertension Arthritis Father No problems noted. Family/Other Mental health disorder Substance use disorder Social History Housing: Apartment Alcohol intake: never Patient Tobacco Use Status: Never used Tobacco e-Cigarette/Vaping Use: Never Used Second Hand Smoke Exposure: No service: No Current occupational status: unemployed Cognitive needs: No Hearing needs: No Vision needs: No Questionnaire Thrive Questionnaire Date Thrive assessed: 04/09/23 ENIO-7 AMB Questionnaire ENIO-7 Date ENIO - 7 assessed: 04/09/23 Source: Developed by Drs. Ernie Roberts, Yesy Hook, Javed Aden and colleagues, with an educational fiona from [employer]. Physical exam (Primary Care) Vital Signs: Last Vital Signs Pulse 103 H 07/02/23 13:45 BP 132/70 07/02/23 13:45 Pulse Ox 99 07/02/23 13:45 Oxygen Delivery Method Room Air 07/02/23 13:45 BMI result Body Mass Index 35.6 Tobacco/Smoking Status: Tobacco use Status Tobacco use date assessed 07/02/23 07/02/23 13:55 Patient Tobacco Use Status Never used Tobacco 07/02/23 13:42 e-Cigarette/Vaping Use Never Used 07/02/23 13:42 Thrive Assessment: Date of Thrive Assessment Date Thrive assessed 04/09/23 07/02/23 13:42 Const General: cooperative and healthy appearing Nutritional Appearance: well nourished Orientation/consciousness: patient oriented x3 Limitations: no limitations HENMT Head: Yes normal to inspection Eyes General: appearance normal, both eyes and all related structures Neck Neck: Yes normal visual inspection Chest Chest palpation & inspection: normal palpation of entire chest wall Resp Effort & Inspection: normal respiratory effort Neuro General: patient oriented x3 Office Procedures Flu Questionnaire Does the patient have a severe egg allergy?: No Does the patient have severe life threatening allergies?: No Does the patient have a fever or illness today?: No Has the patient ever had Guillain-Teaneck Syndrome?: No Has the patient ever had any past reaction to a flu shot?: No Immunizations flu vacc [id number] 6mos up(PF) 60 mcg(15 mcgx4)/0.5 mL IM syringe Performing Provider: Andrey Aggarwal MD [facility] Administered by: TANVIR Taylor on 07/02/23 14:01 Dose Route Admin Location Dispensed Lot Number Expiration Date NDC Corrective Therapist 0.5 mL IM Left Deltoid 0.5 mL [id number] 03/20/34 23640-662-31 Chef VIS Given Date VIS Provided VIS Publication Date 07/02/23 Single Vaccine 21 Eligibility Eligibility Date Funding Source Not [facility] Eligible 07/02/23 Private Assessment and Plan Assessment & Plan (1) GERD (gastroesophageal reflux disease): Code(s): K21.9 - Gastro-esophageal reflux disease without esophagitis Plan: PPI started. Patient was advised to take it for 30 days. Avoid carbonated drinks, chocolate and fatty foods. If symptoms do not improve, patient is to make an appointment with her primary care provider. Orders: Orders Influenza [id number] Immunization Today Z23 - Encounter for immunization Coding Level of Care Code Est Pt Level 3 (37065) Diagnoses GERD (gastroesophageal reflux disease) K21.9
[2023-07-02 13:45] VITALS: BP 132/70; PULSE 103; O2SAT 99; BMI 35.6
== END 2023-07-02 14:13 | disposition home or self-care (01) ==
PROVIDERS: PCP Internal Medicine; Visit Provider Internal Medicine
DX: Z23 Encounter for immunization (principal); K21.9 Gastro-esophageal reflux disease without esophagitis
CPT/HCPCS: 90471; 90686; 99213

== ENCOUNTER 2023-07-21 12:42 | Outpatient (AMB) | payer OTHER, SELFPAY ==
--- NOTE | 2023-07-21 12:45 | MHC.PC.OV ---
Vital Signs 07/21/23 12:47 Height 5 ft 3 in Weight 200 lb BMI 35.4 BP 144/100 H Blood Pressure Location Lt brachial Position Sitting Pulse 89 Pulse Source Pulse Oximeter Pulse Oximetry (%) 99 Oxygen Delivery Method Room Air Intake Visit Reasons: 3 week f/u Intake Note: Patient here for 3 week follow up Barge Captain Required: No Accompanied by: Self / Same As Patient Allergies No Known Allergies Allergy (Verified 07/21/23 12:55) Medication List - Last Reconciled 07/21/23 by Rosalie Cantu MD ferrous sulfate 325 mg PO DAILY 90 days lorazepam 0.5 mg PO BID PRN melatonin 10 mg (2 x 5 mg) PO BEDTIME PRN 30 days pantoprazole 40 mg PO DAILY prazosin 2 mg PO BEDTIME risperidone 3 mg PO BEDTIME sumatriptan succinate 25 mg PO Q2-4H PRN 30 days Tobacco use date assessed: 07/02/23 Dental Screening Dental Screen Date: 07/21/23 Did you have a dental visit in the last 12 months?: Yes Did you have a dental problem in the last 6 months where you did not have access to dental care?: No Was dental information given to patient?: Patient has dentist HPI HPI Comments History of Present Illness Details This is a 38-year-old female with anemia, migraines and mild major depression that complains epigastric pain burning in quality associated with nausea and vomiting that started about 2 months ago. She has been on pantoprazole for over 2 weeks with no significant relieved. I will refer her to Gastroenterology. On ferrous sulfate for her anemia and hemoglobin will be repeated. Has migraines few times a month relieved by sumatriptan. Mild major depression stable with Risperdal. [facility] Surgical History No pertinent past surgical history Family History Mother Diabetes Hypertension Arthritis Father No problems noted. Family/Other Mental health disorder Substance use disorder Social History Housing: Apartment Alcohol intake: never Patient Tobacco Use Status: Never used Tobacco e-Cigarette/Vaping Use: Never Used Second Hand Smoke Exposure: No service: No Current occupational status: unemployed Cognitive needs: No Hearing needs: No Vision needs: No Questionnaire Thrive Questionnaire Date Thrive assessed: 04/09/23 ENIO-7 AMB Questionnaire ENIO-7 Date ENIO - 7 assessed: 04/09/23 Source: Developed by Drs. Ernie Roberts, Yesy Hook, Javed Aden and colleagues, with an educational fiona from [employer]. Review of Systems Const All systems reviewed & are unremarkable except as noted in HPI and below Eyes Reports no additional complaints, Denies change in vision and Denies other visual disturbances Card Denies chest pain at rest, Denies chest pain with activity, Denies edema, Denies irregular heart rhythm, Denies claudication, Denies dyspnea, Denies dyspnea on exertion, Denies orthopnea, Denies paroxysmal nocturnal dyspnea and Denies slow heart rate Resp Denies cough, Denies dyspnea and Denies dyspnea on exertion GI Denies abdominal pain, Denies change in bowel habits, Denies excessive flatus, Denies nausea and Denies vomiting Denies urinary incontinence, Denies urinary hesitancy and Denies urinary urgency Musc Denies abnormal gait, Denies atrophy, Denies deformity and Denies limited range of motion Skin/Breast Denies bleeding lesions, Denies changing lesions and Denies rash Neuro Denies abnormal gait and Denies lack of coordination Physical exam (Primary Care) Vital Signs: Last Vital Signs Pulse 89 07/21/23 12:47 BP 144/100 H 07/21/23 12:47 Pulse Ox 99 07/21/23 12:47 Oxygen Delivery Method Room Air 07/21/23 12:47 BMI result Body Mass Index 35.4 Tobacco/Smoking Status: Tobacco use Status Tobacco use date assessed 07/02/23 07/21/23 12:51 Patient Tobacco Use Status Never used Tobacco 07/21/23 12:51 e-Cigarette/Vaping Use Never Used 07/21/23 12:51 Thrive Assessment: Date of Thrive Assessment Date Thrive assessed 04/09/23 07/21/23 12:51 Eyes General: appearance normal, both eyes and all related structures Eyelids: Yes eyelids normal Conjunctivae: conjunctivae normal Neck Neck: Yes normal visual inspection and Yes supple Resp Effort & Inspection: normal respiratory effort Auscultation: clear to auscultation bilaterally Cardio Jugular venous distension: no JVD Rate: regular rate Rhythm: regular rhythm Heart sounds: S1 normal heart sound present and S2 normal heart sound present GI Inspection: Yes normal to inspection Palpation (GI): Soft to palpation and nontender Auscultation: normal bowel sounds Extrem General: Yes full ROM Assessment and Plan Assessment & Plan (1) GERD (gastroesophageal reflux disease): Code(s): K21.9 - Gastro-esophageal reflux disease without esophagitis Plan: Continue PPIs. Referred to Gastroenterology. (2) Anemia: Code(s): D64.9 - Anemia, unspecified Plan: Continue ferrous sulfate. Repeat hemoglobin. (3) Migraines: Code(s): G43.909 - Migraine, unspecified, not intractable, without status migrainosus Plan: Continue sumatriptan as needed. (4) Mild major depression: Code(s): F32.0 - Major depressive disorder, single episode, mild Plan: Continue Risperdal. Orders: Orders IRON PROFILE Today D64.9 - Anemia, unspecified Complete Blood Count Auto Diff Today D64.9 - Anemia, unspecified Referrals Gastroenterology Referral K21.9 - Gastro-esophageal reflux disease without esophagitis Coding Level of Care Code Est Pt Level 4 (44969) Diagnoses GERD (gastroesophageal reflux disease) K21.9 Anemia D64.9 Migraines G43.909 Mild major depression F32.0 Time Spent (min) 21
[2023-07-21 12:47] VITALS: BP 144/100; PULSE 89; O2SAT 99; BMI 35.4
== END 2023-07-21 13:02 | disposition home or self-care (01) ==
PROVIDERS: PCP Internal Medicine; Visit Provider Internal Medicine
DX: K21.9 Gastro-esophageal reflux disease without esophagitis (principal); D64.9 Anemia, unspecified; G43.909 Migraine, unspecified, not intractable, without status migrainosus; F32.0 Major depressive disorder, single episode, mild
CPT/HCPCS: 99214

== ENCOUNTER 2023-08-25 11:20 | Outpatient (AMB) | payer OTHER, SELFPAY ==
--- NOTE | 2023-08-25 11:38 | MHC.OFFVIS ---
Intake Vital Signs 08/25/23 11:41 Height 5 ft 3 in Weight 200 lb BMI 35.4 BP 138/73 Blood Pressure Location Lt brachial Position Sitting Pulse 93 Intake Visit Reasons: Gastro-esophageal reflux disease Intake Note: Patient follow up for GERD. Patient cc: Nauseas on and off, abdominal pain and bloating, chest pain in both side with SOB, acid reflex and some swallowing problems. Denies any other GI issues. Hvac Project Manager Required: Yes Hvac Project Manager Name: Jessica [facility] interpeter Accompanied by: Self / Same As Patient Allergies No Known Allergies Allergy (Verified 08/25/23 11:37) Medication List - Last Reconciled 08/25/23 by Winnie Sagastume PA-C ferrous sulfate 325 mg PO DAILY 90 days lorazepam 0.5 mg PO BID PRN melatonin 10 mg (2 x 5 mg) PO BEDTIME PRN 30 days pantoprazole 40 mg PO DAILY prazosin 2 mg PO BEDTIME risperidone 3 mg PO BEDTIME sumatriptan succinate 25 mg PO Q2-4H PRN 30 days HPI HPI Comments History of Present Illness Details A 38 y/o acid reflux - pantoprazole 40 mg x 6 weeks- not helpful- has RUQ pain - radiates to back She feels a lot of bloating unable to identify anything specific that makes it better or worse. She has had no change in her weight Appetite is good Bowels are normal She has had more respiratory issues post COVID she follows with her PCP Occasional nausea, no vomiting, hematemesis, hematochezia fever or chills Ar[place] in 2010-cholelithiasis [facility] Surgical History No pertinent past surgical history Family History Mother Diabetes Hypertension Arthritis Father No problems noted. Family/Other Mental health disorder Substance use disorder Social History Housing: Apartment Alcohol intake: never Patient Tobacco Use Status: Never used Tobacco e-Cigarette/Vaping Use: Never Used Second Hand Smoke Exposure: No service: No Current occupational status: unemployed Cognitive needs: No Hearing needs: No Vision needs: No Review of Systems Const All systems reviewed & are unremarkable except as noted in HPI and below Denies chills and Denies fever(s) Card Denies chest pain and Denies dyspnea Resp Denies dyspnea GI Reports abdominal pain and Reports bloating Physical Exam Vital Signs: Last Vital Signs Pulse 93 08/25/23 11:41 BP 138/73 08/25/23 11:41 BMI result Body Mass Index 35.4 Const General: cooperative, healthy appearing, comfortable and no acute distress Orientation/consciousness: patient oriented x3 Limitations: language barrier Eyes Sclerae: sclerae normal Resp Effort & Inspection: normal respiratory effort and able to speak in complete sentences Auscultation: clear to auscultation bilaterally, no rales, no rhonchi and no wheezes Cardio Rate: regular rate Rhythm: regular rhythm Heart sounds: S1 normal heart sound present and S2 normal heart sound present Skin General skin exam: no rashes or lesions noted Neuro General: patient oriented x3 Extrem General: Yes full ROM Psych Appearance: grossly normal and well kempt Mental Status: mental status grossly normal Speech and movement: Normal speech and movement present and Clear speech present Affect: normal affect Attitude: cooperative Thought process: Normal thought process present Thought content: Normal thought content present Assessment & Plan Assessment & Plan (1) GERD (gastroesophageal reflux disease): Code(s): K21.9 - Gastro-esophageal reflux disease without esophagitis Plan: Discontinue pantoprazole for 2 weeks she may take Carafate in the interim Will get H pylori stool antigen if positive will treat Reflux precautions reviewed Avoid culprits (2) Abdominal pain: Comment: Right upper quadrant radiates to back s/p arlen Code(s): R10.9 - Unspecified abdominal pain Plan: Ultrasound common CBD Plan HP 2 weeks Carafate interim Labs U/S-assess for CBD dilation Orders: Orders Complete Blood Count Auto Diff Today K21.9 - Gastro-esophageal reflux disease without esophagitis, R10.9 - Unspecified abdominal pain H pylori Ag Stool Today A04.8 - Other specified bacterial intestinal infections Comprehensive Met. Panel Today K21.9 - Gastro-esophageal reflux disease without esophagitis, R10.9 - Unspecified abdominal pain US abdomen complete Today R10.9 - Unspecified abdominal pain Medications: New sucralfate 1 g PO QIDACHS 21 days PRN 90 tabs 0RF reflux Patient Instructions: Discontinue pantoprazole for 2 weeks she may take Carafate in the interim Will get H pylori stool antigen if positive will treat Reflux precautions reviewed Avoid culprits Update CBC CMP Abdominal ultrasound Encouraged to call questions or concerns Coding Level of Care Code New Pt Level 3 (28021) Diagnoses GERD (gastroesophageal reflux disease) K21.9 Abdominal pain R10.9 Time Spent (min) 30 Comment Jessica
[2023-08-25 11:41] VITALS: BP 138/73; PULSE 93; BMI 35.4
== END 2023-08-25 14:52 | disposition home or self-care (01) ==
PROVIDERS: PCP Internal Medicine; Visit Provider Physician Assistant
DX: K21.9 Gastro-esophageal reflux disease without esophagitis (principal); R10.9 Unspecified abdominal pain
CPT/HCPCS: 99203

== ENCOUNTER 2023-08-25 11:20 | Outpatient (REF) | payer OTHER, SELFPAY ==
[2023-08-25 12:48] LABS: MANUAL DIFF FLAG NO
[2023-08-25 13:44] LABS: Basophils Absolute Auto 0.1 X10*3/uL (0.0-0.2); Basophils Percent Auto 0.6 % (0-2); Eosinophils Absolute Auto 0.1 X10*3/uL (0.0-0.4); Eosinophils Percent Auto 1.5 % (0-4); Hematocrit 36.2 % (37.0-47.0); Hemoglobin 11.2 g/dl (12.0-16.0); Imm Gran Abs Auto 0.03 X10*3/uL (0.00-0.03); Imm Gran Pct Auto 0.4 % (0.0-0.4); Lymphocytes Absolute Auto 1.3 X10*3/uL (1.2-4.9); Lymphocytes Percent Auto 16.4 % (20-40); Mean Corpuscular HGB Conc 30.9 g/dl (31.0-35.0); Mean Corpuscular Hemoglobin 26.9 pg (27.0-33.0); Mean Corpuscular Volume 86.8 fL (80.0-98.0); Mean Platelet Volume 10.5 fL (9.4-12.3); Monocytes Absolute Auto 0.7 X10*3/uL (0.1-1.2); Monocytes Percent Auto 8.1 % (2-11); Neutrophils Absolute Auto 5.9 x10*3/uL (2.0-8.3); Platelet Count 412 X10*3/uL (160-400); Red Blood Count 4.17 X10*6/uL (4.20-5.50); Red Cell Distribution Width 12.6 % (11.0-16.0)
[2023-08-25 14:41] LABS: Alanine Aminotransferase 25 U/L (0-31); Albumin Level 4.3 g/dL (3.5-5.0); Alkaline Phosphatase 88 U/L (39-117); Anion Gap 12 (12-20); Aspartate Amino Transferase 20 U/L (5-31); Bilirubin Total 0.4 mg/dL (0.0-1.0); Blood Urea Nitrogen 8 mg/dL (9-16); Calcium 9.5 mg/dL (8.4-10.2); Carbon Dioxide 28 mmol/L (22-29); Chloride 102 mmol/L (96-108); Estimated Glomerular Filt Rate > 60; Glucose Random 160 mg/dL (60-115); Potassium 3.8 mmol/L (3.3-5.1); Sodium 138 mmol/L (135-145); Total Protein 8.5 g/dL (6.5-8.0)
== END 2023-08-25 11:21 | disposition home or self-care (01) ==
LOC: HO.LAB 11:20
PROVIDERS: PCP Internal Medicine; Visit Provider Physician Assistant
DX: K21.9 Gastro-esophageal reflux disease without esophagitis (principal); R10.11 Right upper quadrant pain; A04.8 Other specified bacterial intestinal infections; Z79.899 Other long term (current) drug therapy
CPT/HCPCS: 80053; 85025; 99202

== ENCOUNTER 2023-09-08 08:48 | Emergency (ER) | payer OTHER, SELFPAY ==
[2023-09-08 08:56] VITALS: BP 152/91; PULSE 98; RESP 19; TEMP 36.7; O2SAT 100; BMI 35.4
[2023-09-08 09:31] LABS: MANUAL DIFF FLAG NO
[2023-09-08 09:35] LABS: Appearance Urine Clear; Color Urine Yellow; Glucose Urine UA Negative (Negative); Leukocyte Esterase Urine Negative (Negative); Nitrite Urine Negative (Negative); PH 5.5 (5.0-9.0); Specific Gravity - Urine 1.025 (1.005-1.025); Urine Blood Negative (Negative); Urine Ketones Trace mg/dL (Negative); Urine Protein Negative (Neg-Trace)
[2023-09-08 09:36] LABS: Basophils Percent Auto 0.6 % (0-2); Eosinophils Absolute Auto 0.1 X10*3/uL (0.0-0.4); Hematocrit 36.3 % (37.0-47.0); Hemoglobin 11.3 g/dl (12.0-16.0); Imm Gran Abs Auto 0.03 X10*3/uL (0.00-0.03); Imm Gran Pct Auto 0.4 % (0.0-0.4); Lymphocytes Absolute Auto 1.8 X10*3/uL (1.2-4.9); Lymphocytes Percent Auto 25.1 % (20-40); Mean Corpuscular HGB Conc 31.1 g/dl (31.0-35.0); Mean Corpuscular Hemoglobin 26.7 pg (27.0-33.0); Mean Corpuscular Volume 85.6 fL (80.0-98.0); Mean Platelet Volume 10.1 fL (9.4-12.3); Monocytes Absolute Auto 0.6 X10*3/uL (0.1-1.2); Neutrophils Absolute Auto 4.5 x10*3/uL (2.0-8.3); Neutrophils Percent Auto 62.9 % (45-73); Platelet Count 401 X10*3/uL (160-400); Red Blood Count 4.24 X10*6/uL (4.20-5.50); Red Cell Distribution Width 12.7 % (11.0-16.0); White Blood Count 7.1 X10*3/uL (4.8-10.8)
[2023-09-08 09:38] LABS: UPreg QC Valid YES; Urine Pregnancy NEGATIVE (NEGATIVE)
[2023-09-08 09:47] LABS: Anion Gap 14 (12-20); Blood Urea Nitrogen 8 mg/dL (9-16); Calcium 9.3 mg/dL (8.4-10.2); Carbon Dioxide 25 mmol/L (22-29); Chloride 105 mmol/L (96-108); Creatinine Clr Calc Pharmacy 108.3; Estimated Glomerular Filt Rate > 60; Glucose Random 125 mg/dL (60-115); Potassium 3.9 mmol/L (3.3-5.1); Sodium 140 mmol/L (135-145)
--- NOTE | 2023-09-08 09:50 | ED.ABDPAIN ---
HPI - Abdominal Pain General Chief Complaint: Abdominal Pain Stated Complaint: abd pain Time Seen by Provider: 09/08/23 09:48 Source: patient Mode of arrival: ambulatory Limitations: no limitations History of Present Illness HPI narrative: Patient with GI issues for months. States that her meds are not working. She saw GI doctor a few days ago and is scheduled for US of her liver. She has had a cholecystectomy in the past. Most of her discomfort is in the right upper quadrant MD elicited complaint: abdominal pain Onset (ago): month(s) Pain Consistency: intermittent Location: diffuse, epigastric and RUQ Related Data Home Medications Medication Instructions Recorded Confirmed lorazepam 0.5 mg tablet 0.5 mg PO BID PRN Anxiety 02/26/23 07/21/23 prazosin 2 mg capsule 2 mg PO BEDTIME 02/26/23 07/21/23 risperidone 3 mg tablet 3 mg PO BEDTIME 02/26/23 07/21/23 Previous Rx's Medication Instructions Recorded ferrous sulfate 325 mg (65 mg 325 mg PO DAILY 90 days #90 tabs 04/09/23 iron) tablet sumatriptan succinate 25 mg tablet 25 mg PO Q2-4H PRN migraine 04/09/23 headache 30 days #9 tabs pantoprazole 40 mg tablet,delayed 40 mg PO DAILY #30 tabs 07/30/23 release melatonin 5 mg tablet 10 mg (2 x 5 mg) PO BEDTIME PRN 07/31/23 sleep 30 days #60 tabs sucralfate 1 gram tablet 1 g PO QIDACHS PRN reflux 21 days 08/25/23 #90 tabs hyoscyamine sulfate 0.125 mg 0.125 mg PO QID #20 tabs 09/08/23 tablet (Levsin) Allergies Allergy/AdvReac Type Severity Reaction Status Date / Time No Known Allergies Allergy Verified 08/25/23 11:37 Review of Systems Review of Systems Yes all other systems are reviewed and are negative Denies Sensory deficit (Neuro) PMFSH Past Medical History Surgical History No pertinent past surgical history Family History Family History Mother Diabetes Hypertension Arthritis Father No problems noted. Family/Other Mental health disorder Substance use disorder Social History Social History Housing: Apartment Alcohol intake: never Patient Tobacco Use Status: Never used Tobacco Smoked in Last 30 Days: No e-Cigarette/Vaping Use: Never Used Second Hand Smoke Exposure: No Use of substances other than those prescribed or required for medical reasons: No Advance Directives: No Advance Directives Information Provided: No Patient : No service: No Current occupational status: unemployed Cognitive needs: No Hearing needs: No Vision needs: No Physical Exam ED Vital Signs: Vital Signs - 24 hr 09/08/23 08:56 09/08/23 10:43 Temperature 98.1 F Pulse Rate 98 97 Respiratory Rate 19 16 Blood Pressure 152/91 H 149/80 H Pulse Oximetry 100 99 Oxygen Delivery Method Room Air Room Air BMI result Body Mass Index 35.4 Const Other: obese female Orientation/consciousness: oriented to person and patient oriented x3 Limitations: no limitations HENMT Head: Yes normal to inspection Ears: external ears normal General nose exam: Normal external nose present Mouth: Normal oral and palatal mucosa present and oropharynx normal Throat: Yes posterior oropharynx normal Eyes General: appearance normal, both eyes and all related structures Neck Neck: Yes normal visual inspection Chest Chest palpation & inspection: normal inspection of the chest Resp Auscultation: clear to auscultation bilaterally Cardio Jugular venous distension: no JVD Rate: regular rate Rhythm: regular rhythm Heart sounds: S1 normal heart sound present and S2 normal heart sound present GI Inspection: Yes normal to inspection Palpation (GI): Soft to palpation, nontender and No hepatosplenomegaly present Auscultation: normal bowel sounds General: Yes no CVA tenderness Back/Spine/Pelvis Back: no CVA tenderness Skin General skin exam: no rashes or lesions noted Neuro General: oriented to person and patient oriented x3 Cranial nerves: Yes CN's II-XII intact bilaterally Motor exam (neuro): 5/5 motor strength present throughout Sensory Exam: No Sensory deficit (Neuro) Extrem General: Yes normal to inspection Psych Appearance: grossly normal Course Reevaluation(s) Reevaluation #1: patient with chronic abdominal pain, normal vitals, normal labs including LFTS and lipase. Will start levsin for GI discomfort and have patient follow up with GI Time: 11:35 Medical Decision Making Differential Diagnosis Differential Diagnoses: The differential diagnosis associated with the presentation includes (biliary colic, hepatitis, pancreatitis, fatty liver disease, GERD were all considered) Admission/Observation Consideration of admission/observation: Escalation of care including admission/observation considered (upon arrival patient was considered for admission) Lab Data MDM Lab Attestation statement: I reviewed the patient's lab results. 09/08/23 09:17 09/08/23 09:17 Labs: Lab Results 09/08/23 Range/Units 09:17 WBC 7.1 (4.8-10.8) X10*3/uL RBC 4.24 (4.20-5.50) X10*6/uL Hgb 11.3 L (12.0-16.0) g/dl Hct 36.3 L (37.0-47.0) % MCV 85.6 (80.0-98.0) fL MCH 26.7 L (27.0-33.0) pg MCHC 31.1 (31.0-35.0) g/dl RDW 12.7 (11.0-16.0) % Plt Count 401 H (160-400) X10*3/uL MPV 10.1 (9.4-12.3) fL Immature Gran % (Auto) 0.4 (0.0-0.4) % Neut % (Auto) 62.9 (45-73) % Lymph % (Auto) 25.1 (20-40) % [place] % (Auto) 9.0 (2-11) % Eos % (Auto) 2.0 (0-4) % Baso % (Auto) 0.6 (0-2) % Lymph # (Auto) 1.8 (1.2-4.9) X10*3/uL [place] # (Auto) 0.6 (0.1-1.2) X10*3/uL Eos # (Auto) 0.1 (0.0-0.4) X10*3/uL Baso # (Auto) 0.0 (0.0-0.2) X10*3/uL Abs Immat Gran (auto) 0.03 (0.00-0.03) X10*3/uL Absolute Neuts (auto) 4.5 (2.0-8.3) x10*3/uL Absolute Nucleated RBC 0.000 (0.0-0.012) X10*3/uL Nucleated RBC % (auto) 0.0 (0.0-0.2) /100WBC Sodium 140 (135-145) mmol/L Potassium 3.9 (3.3-5.1) mmol/L Chloride 105 (96-108) mmol/L Carbon Dioxide 25 (22-29) mmol/L Anion Gap 14 (12-20) BUN 8 L (9-16) mg/dL Creatinine 0.76 (0.5-1.4) mg/dL Estim Creat Clear Calc 108.3 Estimated GFR > 60 Random Glucose 125 H (60-115) mg/dL Calcium 9.3 (8.4-10.2) mg/dL Total Bilirubin 0.6 (0.0-1.0) mg/dL Direct Bilirubin 0.3 (0.0-0.5) mg/dL AST 20 (5-31) U/L ALT 28 (0-31) U/L Alkaline Phosphatase 90 (39-117) U/L Total Protein 8.5 H (6.5-8.0) g/dL Albumin 4.3 (3.5-5.0) g/dL Lipase 15 (8-78) U/L Urine Color Yellow Urine Appearance Clear Urine pH 5.5 (5.0-9.0) Ur Specific [place] 1.025 (1.005-1.025) Urine Protein Negative (Neg-Trace) mg/dL Urine Glucose (UA) Negative (Negative) mg/dL Urine Ketones Trace (Negative) mg/dL Urine Blood Negative (Negative) Urine Nitrite Negative (Negative) Ur Leukocyte Esterase Negative (Negative) Urine Test NEGATIVE (NEGATIVE) External Record Review External record reviewed: Outpatient record and Prior outpatient labs Tests considered The following testing was considered but not selected: CT of abdomen but patient nonfocal exam with normal vitals and normal lfts Chronic Conditions Patient?s care impacted by: Other (GERD) Discharge Plan Discharge Clinical Impression: GERD (gastroesophageal reflux disease), Abdominal pain Patient Disposition: Home, Self-Care Instructions: Gastroesophageal Reflux Disease (ED), Abdominal Pain (ED) Prescriptions: New hyoscyamine sulfate [Levsin] 0.125 mg tablet 0.125 mg PO QID Qty: 20 0RF No Action ferrous sulfate 325 mg (65 mg iron) tablet 325 mg PO DAILY 90 Days Qty: 90 1RF pantoprazole 40 mg tablet,delayed release (DR/EC) 40 mg PO DAILY Qty: 30 0RF melatonin 5 mg tablet 10 mg PO BEDTIME PRN (Reason: sleep) 30 Days Qty: 60 0RF risperidone 3 mg Tablet 3 mg PO BEDTIME lorazepam 0.5 mg Tablet 0.5 mg PO BID PRN (Reason: Anxiety) prazosin 2 mg Capsule 2 mg PO BEDTIME sumatriptan succinate 25 mg tablet 25 mg PO Q2-4H PRN (Reason: migraine headache) 30 Days Qty: 9 2RF Rx Instructions: do not exceed 8 doses per 24 hrs sucralfate 1 gram tablet 1 g PO QIDACHS PRN (Reason: reflux) 21 Days Qty: 90 0RF Referrals: Rosalie Parson MD [Primary Care Provider] - 5 days
[2023-09-08 10:23] LABS: Alanine Aminotransferase 28 U/L (0-31); Albumin Level 4.3 g/dL (3.5-5.0); Alkaline Phosphatase 90 U/L (39-117); Aspartate Amino Transferase 20 U/L (5-31); Bilirubin Direct 0.3 mg/dL (0.0-0.5); Bilirubin Total 0.6 mg/dL (0.0-1.0); Lipase 15 U/L (8-78); Total Protein 8.5 g/dL (6.5-8.0)
[2023-09-08 10:43] VITALS: BP 149/80; PULSE 97; RESP 16; O2SAT 99
--- NOTE | 2023-09-08 10:43 | PC.NURSE ---
a&ox3, vss and up to date. pt comes in d/t epigastric/RUQ abd pain x 2 months. pt saw pcp where she was prescribed meds - no longer working. pt states pain worsens to right flank - denies any urinary sx. pt also c/o nausea - denies v/d. nontender upon palpation. no sob/wob noted. respirations even/unlabored. call reina placed within reach.
== END 2023-09-08 11:57 | disposition home or self-care (01) ==
PROVIDERS: Emergency Provider Emergency Medicine; PCP Internal Medicine
DX: K21.9 Gastro-esophageal reflux disease without esophagitis (principal); R10.11 Right upper quadrant pain; R10.13 Epigastric pain; Z79.899 Other long term (current) drug therapy
CPT/HCPCS: 36415; 80048; 80076; 81003; 81025; 83690; 85025; 99283; 99284

== ENCOUNTER 2023-09-10 17:37 | Outpatient (REF) | payer OTHER, SELFPAY | END 2023-09-10 17:38 | disposition home or self-care (01) | LOC: HO.LNP 17:37 | PROVIDERS: Visit Provider Physician Assistant | DX: A04.8 Other specified bacterial intestinal infections (principal) | CPT/HCPCS: 87338 ==

== ENCOUNTER 2023-09-11 11:32 | Outpatient (REF) | payer OTHER, SELFPAY ==
[2023-09-11 11:52] LABS: MANUAL DIFF FLAG NO
[2023-09-11 12:02] LABS: Basophils Absolute Auto 0.1 X10*3/uL (0.0-0.2); Basophils Percent Auto 0.7 % (0-2); Eosinophils Absolute Auto 0.1 X10*3/uL (0.0-0.4); Eosinophils Percent Auto 1.7 % (0-4); Hematocrit 35.1 % (37.0-47.0); Hemoglobin 11.1 g/dl (12.0-16.0); Imm Gran Abs Auto 0.02 X10*3/uL (0.00-0.03); Imm Gran Pct Auto 0.2 % (0.0-0.4); Mean Corpuscular HGB Conc 31.6 g/dl (31.0-35.0); Mean Corpuscular Hemoglobin 26.9 pg (27.0-33.0); Mean Corpuscular Volume 85.2 fL (80.0-98.0); Mean Platelet Volume 9.8 fL (9.4-12.3); Monocytes Absolute Auto 0.6 X10*3/uL (0.1-1.2); Monocytes Percent Auto 7.8 % (2-11); Neutrophils Absolute Auto 5.2 x10*3/uL (2.0-8.3); Neutrophils Percent Auto 64.6 % (45-73); Platelet Count 408 X10*3/uL (160-400); Red Blood Count 4.12 X10*6/uL (4.20-5.50); Red Cell Distribution Width 12.6 % (11.0-16.0); White Blood Count 8.1 X10*3/uL (4.8-10.8)
[2023-09-11 12:36] LABS: Alanine Aminotransferase 20 U/L (0-31); Albumin Level 4.3 g/dL (3.5-5.0); Alkaline Phosphatase 96 U/L (39-117); Anion Gap 12 (12-20); Aspartate Amino Transferase 16 U/L (5-31); Bilirubin Total 0.5 mg/dL (0.0-1.0); Blood Urea Nitrogen 13 mg/dL (9-16); Calcium 9.7 mg/dL (8.4-10.2); Carbon Dioxide 26 mmol/L (22-29); Chloride 104 mmol/L (96-108); Estimated Glomerular Filt Rate > 60; Glucose Fasting 111 mg/dL (60-99); Iron 55 mcg/dL (30-160); Percent Iron Saturation 19 % (15-50); Potassium 3.8 mmol/L (3.3-5.1); Sodium 138 mmol/L (135-145); Total Iron Binding Capacity 295 mcg/dL (228-428); Total Protein 8.5 g/dL (6.5-8.0); Unsaturated Iron Binding 240 ug/dL
== END 2023-09-11 11:33 | disposition home or self-care (01) ==
LOC: HO.LAB 11:32
PROVIDERS: PCP Internal Medicine; Visit Provider Internal Medicine
DX: D64.9 Anemia, unspecified (principal); R73.02 Impaired glucose tolerance (oral)
CPT/HCPCS: 36415; 80053; 83540; 85025

== ENCOUNTER 2023-09-30 09:13 | Outpatient (REF) | payer OTHER, SELFPAY ==
--- NOTE | ~2023-09-30 | US_ITS ---
EXAMINATION: US ABDOMEN COMPLETE CLINICAL INFORMATION: Unspecified abdominal pain. COMPARISON: CT abdomen and pelvis 08/18/2017. TECHNIQUE: Real-time imaging of the abdominal viscera. FINDINGS: PANCREAS: Normal head and body, the tail is obscured by bowel gas. ABDOMINAL AORTA: The proximal, mid, and distal segments are normal in caliber. INFERIOR VENA CAVA: Visualized portions are normal. LIVER: The liver is normal in size. The liver contour is normal. There is diffuse increased liver parenchymal echogenicity, consistent with hepatic steatosis. No focal hepatic lesion. There is no intrahepatic biliary duct dilatation seen. GALLBLADDER: Surgically absent. COMMON BILE DUCT: Normal in caliber measuring 0.3 cm in diameter. RIGHT KIDNEY: Normal. No hydronephrosis. No renal calculi or focal parenchymal lesions. The kidney measures 11.0 cm in maximum dimension. LEFT KIDNEY: Normal. No hydronephrosis. No renal calculi or focal parenchymal lesions. The kidney measures 11.0 cm in maximum dimension. SPLEEN: 0.3 x 0.3 x 0.2 cm calcification seen in the spleen likely represents a calcified granuloma indicative of old granulomatous disease. The spleen measures 8.3 cm in maximum dimension. FREE FLUID: None. US/US abdomen complete IMPRESSION: 1. Hepatic steatosis. 2. Prior cholecystectomy. 3. 0.3 cm calcification in the spleen likely represents a calcified granuloma indicative of old granulomatous disease.
== END 2023-09-30 09:14 | disposition home or self-care (01) ==
LOC: HO.US 09:13
PROVIDERS: PCP Internal Medicine; Visit Provider Physician Assistant
DX: R10.9 Unspecified abdominal pain (principal)
CPT/HCPCS: 76700

== ENCOUNTER 2023-10-30 15:48 | Outpatient (REF) | payer OTHER, SELFPAY | END 2023-10-30 15:49 | disposition home or self-care (01) | LOC: HO.LNP 15:48 | PROVIDERS: Visit Provider Physician Assistant | DX: A04.8 Other specified bacterial intestinal infections (principal) | CPT/HCPCS: 87338 ==

== ENCOUNTER 2023-11-17 15:28 | Outpatient (REF) | payer OTHER, SELFPAY ==
[2023-11-18 14:50] LABS: CT PCR NOT DETECTED (Not Detect.); NG PCR NOT DETECTED (Not Detect.)
[2023-11-18 15:26] LABS: BV Int Neg Control Negative (Negative); BV Int Pos Control Positive (Positive)
== END 2023-11-17 15:29 | disposition home or self-care (01) ==
LOC: HO.LNP 15:28
PROVIDERS: PCP Internal Medicine; Visit Provider Obstetrics & Gynecology
DX: N89.8 Other specified noninflammatory disorders of vagina (principal); B97.7 Papillomavirus as the cause of diseases classified elsewhere; Z32.02 Encounter for pregnancy test, result negative
CPT/HCPCS: 0353U; 81025; 87480; 87510; 87660; 99202

== ENCOUNTER 2023-11-17 15:28 | Outpatient (AMB) | payer OTHER, SELFPAY ==
--- NOTE | 2023-11-17 15:47 | MHC.OFFVIS ---
Intake Vital Signs 11/17/23 15:48 Height 5 ft 3 in Weight 200 lb BMI 35.4 BP 128/78 Intake Visit Reasons: Colposcopy Geography Faculty Member Required: Yes Geography Faculty Member Language: Maintenance Journeyman Name: Aurea RAMEY Information Interpreted: non-clinical & clinical End Finder Twisting Department: End Finder Twisting Department Present Accompanied by: Self / Same As Patient Allergies No Known Allergies Allergy (Verified 11/17/23 15:49) Is last menstrual period known: Yes Last menstrual period: 11/07/23 Post menopausal: No Patient : No HPI HPI Comments History of Present Illness Details The patient is presenting for negative Pap smear/HPV positive , HPV 16/18 negative in 11/14 preceded by negative Pap/HPV positive in 11/13 The patient is complaining of vaginal discharge with no odor and or itching PFSH Surgical History No pertinent past surgical history Family History Mother Diabetes Hypertension Arthritis Father No problems noted. Family/Other Mental health disorder Substance use disorder Social History Housing: Apartment Alcohol intake: never Patient Tobacco Use Status: Never used Tobacco e-Cigarette/Vaping Use: Never Used Second Hand Smoke Exposure: No Patient : No service: No Current occupational status: unemployed Cognitive needs: No Hearing needs: No Vision needs: No Female Reproductive History Menstrual Date of last menstrual period: 11/07/23 Review of Systems Const All systems reviewed & are unremarkable except as noted in HPI and below Reports as per HPI and Reports no additional complaints GI Reports no additional complaints Reports no additional complaints Physical Exam Vital Signs: Last Vital Signs BP 128/78 11/17/23 15:48 BMI result Body Mass Index 35.4 General: Yes no CVA tenderness External Female Exam: normal external appearance and normal appearance of the urethra Speculum Exam - Vagina: normal appearance of the vagina, normal palpation, no lesions and no masses Speculum Exam - Cervix: normal appearance of the cervix, normal palpation, no lesions, no masses and nontender Bimanual exam- vagina & uterus: normal bimanual exam, normal palpation, uterine size normal, normal palpation, uterine shape normal, No Cervical tenderness present and non-tender Bimanual Exam- Adnexa, other: normal adnexae Back/Spine/Pelvis Back: no CVA tenderness Results AMB Test Urine AMB Test Urine Negative Last Edit by Allison Garrett MA on 11/17/23 15:52 Results Reviewed Results Reviewed: Laboratory Last Values [facility]st Clinic Negative 11/17/23 15:51 Assessment & Plan Assessment & Plan (1) HPV in female: Comment: Pap negative Code(s): B97.7 - Papillomavirus as the cause of diseases classified elsewhere Plan: Discussed with the patient the result of her abnormal pap, its significance, risk of progression, persistence, and regression. the false positive/negative rate of a Pap smear as a screening test in detecting cervical cancer and the indication for a diagnostic test -colposcopy, biopsy, endocervical curettage. The patient verbalized understanding and agreed with the plan, all questions answered. Since the patient has vaginal discharge will screen with GC/CT and BV panel and schedule colposcopy in a week (2) Vaginal discharge: Code(s): N89.8 - Other specified noninflammatory disorders of vagina Plan: GC/CT with BV panel collected. West check the results and treat accordingly Orders: Orders AMB HCG Urine Test Today Z32.02 - Encounter for test, result negative Coding Level of Care Code New Pt Level 3 (17629) Diagnoses HPV in female B97.7 Vaginal discharge N89.8
[2023-11-17 15:48] VITALS: BP 128/78; BMI 35.4
== END 2023-11-17 16:18 | disposition home or self-care (01) ==
LOC: HO.HWS 15:29
PROVIDERS: PCP Internal Medicine; Visit Provider Obstetrics & Gynecology
DX: R87.810 Cervical high risk human papillomavirus (HPV) DNA test positive (principal); N89.8 Other specified noninflammatory disorders of vagina; Z32.02 Encounter for pregnancy test, result negative
CPT/HCPCS: 99203

== ENCOUNTER 2023-11-26 08:58 | Outpatient (AMB) | payer OTHER, SELFPAY ==
[2023-11-26 09:31] VITALS: BP 146/90; BMI 34.9
--- NOTE | 2023-11-26 09:31 | A.OFFVIS_ITS ---
Intake Vital Signs 11/26/23 09:31 Height 5 ft 3 in Weight 197 lb BMI 34.9 BP 146/90 H Intake Visit Reasons: Colposcopy Pain Management Nurse Required: Yes Pain Management Nurse Language: Collar Tacker Name: Aurea Ball Information Interpreted: non-clinical & clinical Label Printing Machinist: Label Printing Machinist Present (Aurea) Allergies No Known Allergies Allergy (Verified 11/26/23 09:32) Is last menstrual period known: Yes Last menstrual period: 11/07/23 Post menopausal: No Patient : No HPI HPI Comments History of Present Illness Details Presenting referred for a recent Pap smear which was negative/HPV high- risk positive, preceded by negative Pap/HPV positive in 11/13 [facility] Medical History (Updated 11/26/23 @ 09:34 by Ant Whitfield MD) HPV in female Surgical History No pertinent past surgical history Family History Mother Diabetes Hypertension Arthritis Father No problems noted. Family/Other Mental health disorder Substance use disorder Social History Housing: Apartment Alcohol intake: never Patient Tobacco Use Status: Never used Tobacco e-Cigarette/Vaping Use: Never Used Second Hand Smoke Exposure: No service: No Current occupational status: unemployed Cognitive needs: No Hearing needs: No Vision needs: No Female Reproductive History Menstrual Date of last menstrual period: 11/07/23 control method: none Date of last pap smear: 11/02/23 Physical Exam Vital Signs: Last Vital Signs BP 146/90 H 11/26/23 09:31 BMI result Body Mass Index 34.9 Office Procedures Colposcopy Before the procedure was started discussed with the patient the procedure, alte rnatives & all the risks associated with the procedure (bleeding, infection, injury to vagina, bladder, vessels, possible need for transfusion with all its risks) then patient signed the consent Pap smear = LSIL Urine test done in the office was negative Speculum inserted, acetic acid used Colposcopy done Transformation zone seen, acetowhite lesions identified at 12 o?clock, cervical biopsies taken from 12 o?clock, ECC done afterwards. Vaginoscopy of the upper vagina showed no evidence of any aceto-white lesions Monsel solution used for hemostasis. The patient tolerated well . At the end the patient was instructed to call if temp>100.4, abdominal pain, n/v, bleeding; The patient was given the following instructions: nothing per vagina, no intercourse or bath tub use. All questions answered the patient verbalized understanding. Instructed the patient to make an appointment in 2 weeks for follow-up This note was generated with a voice recognition program. Some errors may have been overlooked during the review of this note. Sometimes these errors may affect the content or meaning of a given sentence. 10312-Byehhtimh of cervix including upper vagina with biopsy and ECC Procedure code (CPT) selection complete Assessment & Plan Assessment & Plan (1) HPV in female: Comment: 12/11 Pap negative/HPV high-risk positive 11/14 Pap negative/HPV high-risk positive Code(s): B97.7 - Papillomavirus as the cause of diseases classified elsewhere Plan: Discussed with the patient the result of her normal pap/HPV high-risk positive, its significance, risk of progression, persistence, and regression. the false positive/negative rate of a Pap smear as a screening test in detecting cervical cancer and the indication for a diagnostic test -colposcopy, biopsy, endocerv ical curettage. The patient verbalized understanding and agreed with the plan, all questions answered. Colposcopy done, see procedure Orders: Orders AMB Colposcopy Today B97.7 - Papillomavirus as the cause of diseases classified elsewhere Coding Level of Care Code Procedure Only Diagnoses HPV in female B97.7 CPT Codes Colposcopy - CPT: 26047-[id number] of cervix including upper vagina with biopsy and ECC ([id number])
== END 2023-11-26 09:48 | disposition home or self-care (01) ==
LOC: HO.HWS 08:58
PROVIDERS: PCP Internal Medicine; Visit Provider Obstetrics & Gynecology
DX: R87.810 Cervical high risk human papillomavirus (HPV) DNA test positive (principal); Z32.02 Encounter for pregnancy test, result negative
CPT/HCPCS: 57454

== ENCOUNTER 2023-11-26 08:58 | Outpatient (REF) | payer OTHER, SELFPAY | END 2023-11-26 08:59 | disposition home or self-care (01) | LOC: HO.LNP 08:58 | PROVIDERS: PCP Internal Medicine; Visit Provider Obstetrics & Gynecology | DX: R87.810 Cervical high risk human papillomavirus (HPV) DNA test positive (principal) | CPT/HCPCS: 57454; 81025; 88305 ==

== ENCOUNTER 2023-12-03 10:49 | Outpatient (AMB) | payer OTHER, SELFPAY ==
--- NOTE | 2023-12-03 10:52 | A.OFFVIS_ITS ---
Intake Vital Signs 12/03/23 10:54 Height 5 ft 3 in Weight 196 lb 3.382 oz BMI 34.8 BP 128/77 Blood Pressure Location Lt brachial Position Sitting Pulse 81 Intake Visit Reasons: US and stool results Intake Note: Venessa presents in the office to go over stool and US results. CC: Here today for results to the imaging and labs that she had done. Surgical Rn Required: Yes Allergies No Known Allergies Allergy (Verified 12/03/23 10:54) HPI HPI Comments History of Present Illness Details A 38-year-old female seen back in August with the normal acid reflux follows up. As she presents today-asymptomatic. She has made dietary modifications as well as completed her course of antibiotics for H pylori-she has no GI or general complaints H pylori testing that was positive she has completed that course of treatment and test of cure is NEG- feels much better Abdominal ultrasound was completing showing hepatic steatosis-noted post cholecystectomy An old granuloma Reviewed labs, normal liver enzymes mildly elevated protein, Mild anemia, menses She has no nausea, vomiting, hematemesis, hematochezia, abdominal pain, fever or chills [facility] Medical History (Updated 12/03/23 @ 11:39 by iWnnie Sagastume PA-C) HPV in female Surgical History No pertinent past surgical history Family History Mother Diabetes Hypertension Arthritis Father No problems noted. Family/Other Mental health disorder Substance use disorder Social History Housing: Apartment Alcohol intake: never Patient Tobacco Use Status: Never used Tobacco e-Cigarette/Vaping Use: Never Used Second Hand Smoke Exposure: No service: No Current occupational status: unemployed Cognitive needs: No Hearing needs: No Vision needs: No Review of Systems Const All systems reviewed & are unremarkable except as noted in HPI and below GI Denies abdominal pain, Denies change in bowel habits, Denies nausea and Denies vomiting Physical Exam Vital Signs: Last Vital Signs Pulse 81 12/03/23 10:54 BP 128/77 12/03/23 10:54 BMI result Body Mass Index 34.8 Const General: cooperative, healthy appearing, comfortable and no acute distress Orientation/consciousness: patient oriented x3 Limitations: language barrier Resp Effort & Inspection: normal respiratory effort and able to speak in complete sentences Skin General skin exam: no rashes or lesions noted Neuro General: patient oriented x3 Extrem General: Yes full ROM Psych Appearance: grossly normal and well kempt Mental Status: mental status grossly normal Speech and movement: Normal speech and movement present Affect: normal affect Attitude: cooperative Thought process: Normal thought process present Thought content: Normal thought content present Insight: Good insight present (Psych) Judgement: Good judgement present (Psych) Results Reviewed Results Reviewed: US/US abdomen complete IMPRESSION: 1. Hepatic steatosis. 2. Prior cholecystectomy. 3. 0.3 cm calcification in the spleen likely represents a calcified granuloma indicative of old granulomatous disease. Assessment & Plan Assessment & Plan (1) Elevated blood protein: Comment: Elevated protein minimal however will get protein electrophoresis Code(s): R77.9 - Abnormality of plasma protein, unspecified Plan: Protein electrophoresis (2) NAFLD (nonalcoholic fatty liver disease): Comment: Dietary modification Code(s): K76.0 - Fatty (change of) liver, not elsewhere classified Plan: NAFLD plan of care Orders: Orders Lipid Panel Today K76.0 - Fatty (change of) liver, not elsewhere classified Liver Panel Today R10.11 - Right upper quadrant pain Protein Electrophoresis, Serum Today R77.9 - Abnormality of plasma protein, unspecified Patient Instructions: Pleasant 38-year-old female NAFLD, H pylori treated MIRANDA neg Reviewed ultrasound-fatty Reviewed blood work-will get protein electrophoresis for mildly elevated protein Also lipid panel She will call for results after blood work has been submit Discussed lifestyle and dietary changes to include avoid alcohol, weight gain, good cholesterol and glucose Stay well hydrated and avoid sedentary lifestyle Will follow back in 6 months Encouraged to call with questions or concerns Coding Level of Care Code Est Pt Level 3 (34595) Diagnoses Elevated blood protein R77.9 NAFLD (nonalcoholic fatty liver disease) K76.0 Time Spent (min) 25 Comment [id number]
[2023-12-03 10:54] VITALS: BP 128/77; PULSE 81; BMI 34.8
== END 2023-12-03 11:23 | disposition home or self-care (01) ==
PROVIDERS: PCP Internal Medicine; Visit Provider Physician Assistant
DX: R77.9 Abnormality of plasma protein, unspecified (principal); K76.0 Fatty (change of) liver, not elsewhere classified
CPT/HCPCS: 99213

== ENCOUNTER 2023-12-03 10:49 | Outpatient (REF) | payer OTHER, SELFPAY ==
[2023-12-03 12:26] LABS: Alanine Aminotransferase 23 U/L (0-31); Albumin Level 4.2 g/dL (3.5-5.0); Alkaline Phosphatase 88 U/L (39-117); Aspartate Amino Transferase 15 U/L (5-31); Bilirubin Direct 0.2 mg/dL (0.0-0.5); Bilirubin Total 0.4 mg/dL (0.0-1.0); Cholesterol 134 mg/dL (<200); HDL Cholesterol 45 mg/dL (>40); LDL Cholesterol Calculated 75 mg/dL (<100); Total Protein 8.5 g/dL (6.5-8.0); Triglycerides 73 mg/dL (<150)
[2023-12-04 21:28] LABS: Prot Elec - Albumin 4.1 g/dL (3.8-4.8); Prot Elec - Alpha1 0.3 g/dL (0.2-0.3); Prot Elec - Alpha2 0.8 g/dL (0.5-0.9); Prot Elec - Beta 1 0.6 g/dL (0.4-0.6); Prot Elec - Beta 2 0.7 g/dL (0.2-0.5); Prot Elec - Gamma 1.8 g/dL (0.8-1.7); Prot Elec - Total Protein 8.3 g/dL (6.1-8.1)
== END 2023-12-03 10:50 | disposition home or self-care (01) ==
LOC: HO.LAB 10:49
PROVIDERS: PCP Internal Medicine; Visit Provider Physician Assistant
DX: R10.11 Right upper quadrant pain (principal); R77.9 Abnormality of plasma protein, unspecified; K76.0 Fatty (change of) liver, not elsewhere classified
CPT/HCPCS: 36415; 80061; 80076; 84165; 99212

== ENCOUNTER 2023-12-14 09:39 | Outpatient (REF) | payer OTHER, SELFPAY ==
[2023-12-15 13:58] LABS: Immunoglobulin G Subclass 1 841 mg/dL (382-929); Immunoglobulin G Subclass 2 658 mg/dL (241-700); Immunoglobulin G Subclass 3 51 mg/dL (22-178); Immunoglobulin G Total 1668 mg/dL (600-1640)
[2023-12-15 17:48] LABS: IgA 562 mg/dL (47-310); IgG 1720 mg/dL (600-1640); IgM 110 mg/dL (50-300)
== END 2023-12-14 09:40 | disposition home or self-care (01) ==
LOC: HO.LAB 09:39
PROVIDERS: PCP Internal Medicine; Visit Provider Physician Assistant
DX: R77.9 Abnormality of plasma protein, unspecified (principal)
CPT/HCPCS: 36415; 82784

== ENCOUNTER 2024-01-07 09:04 | Outpatient (AMB) | payer OTHER, SELFPAY ==
[2024-01-07 09:07] VITALS: BP 130/80
--- NOTE | 2024-01-07 09:07 | A.OFFVIS_ITS ---
Intake Vital Signs 01/07/24 09:07 Height 5 ft 3 in BP 130/80 Intake Visit Reasons: colpo results Oracle Brm Developer Required: Yes Oracle Brm Developer Language: Blacksmith Hammer Operator Name: Aurea Information Interpreted: non-clinical & clinical Allergies No Known Allergies Allergy (Verified 12/03/23 10:54) HPI HPI Comments History of Present Illness Details Presenting post colpo for follow-up. The patient is doing well with no complaints. The pathology showed the following: A. Endocervix, curettage: Scant endocervical glandular and squamous epithelium with abundant mucus; negative for dysplasia. B. Cervix, 12:00, biopsy: Squamous epithelium; negative for dysplasia; no endocervical epithelium present [facility] History HPV in female Surgical History No pertinent past surgical history Family History Mother Diabetes Hypertension Arthritis Father No problems noted. Family/Other Mental health disorder Substance use disorder Social History Housing: Apartment Alcohol intake: never Patient Tobacco Use Status: Never used Tobacco e-Cigarette/Vaping Use: Never Used Second Hand Smoke Exposure: No service: No Current occupational status: unemployed Cognitive needs: No Hearing needs: No Vision needs: No Review of Systems Const All systems reviewed & are unremarkable except as noted in HPI and below Reports as per HPI and Reports no additional complaints GI Reports no additional complaints Reports no additional complaints Physical Exam Vital Signs: Last Vital Signs BP 130/80 01/07/24 09:07 Assessment & Plan Assessment & Plan (1) HPV in female: Comment: 12/11 Pap negative/HPV high-risk positive 11/14 Pap negative/HPV high-risk positive Code(s): B97.7 - Papillomavirus as the cause of diseases classified elsewhere Plan: Discussed with the patient the pathology results of the colposcopy biopsies & endocervical curettage ( negative). Discussed with the patient the sensitivity specificity, positive and negative predictive value in detecting cervical cancer in addition discussed the regression, persistence and progression rates. Recommended co-testing in 12 months, if cytology and or HPV are abnormal will proceed was colposcopy biopsy and endocervical curettage, if lesions gets worse or stays persistent for 2 years will proceed with loop electric excision procedure. Instructions given to the patient to schedule a co test appointment in 1 year. All questions answered the patient verbalized understanding. Coding Level of Care Code Est Pt Level 3 (51862) Diagnoses HPV in female B97.7
== END 2024-01-07 09:22 | disposition home or self-care (01) ==
PROVIDERS: PCP Internal Medicine; Visit Provider Obstetrics & Gynecology
DX: R87.810 Cervical high risk human papillomavirus (HPV) DNA test positive (principal)
CPT/HCPCS: 99213

== ENCOUNTER → 2024-01-07 09:04 | Outpatient (BNVA) | payer OTHER, SELFPAY | PROVIDERS: PCP Internal Medicine; Visit Provider Obstetrics & Gynecology | DX: B97.7 Papillomavirus as the cause of diseases classified elsewhere (principal) | CPT/HCPCS: 99212 ==

== ENCOUNTER 2024-02-11 11:08 | Emergency (ER) | payer OTHER, SELFPAY ==
--- NOTE | 2024-02-11 | ECG_ITS ---
Test Reason : CP Blood Pressure : / mmHG Vent. Rate : 093 BPM Atrial Rate : 093 BPM P-R Int : 158 ms QRS Dur : 082 ms QT Int : 348 ms P-R-T Axes : 037 007 000 degrees QTc Int : 432 ms Normal sinus rhythm Minimal voltage criteria for LVH, may be normal variant ( R in aVL ) Borderline ECG When compared with ECG of 26-FEB-2023 16:59, No significant change was found Referred By: Generic ED Physician Electronically Signed By:ARLETTE BEACH MD
--- NOTE | ~2024-02-11 | XR_ITS ---
EXAMINATION: XR CHEST CLINICAL INFORMATION: Right-sided chest pain x1 week. COMPARISON: Chest radiograph dated 02/26/2023. TECHNIQUE: 2 views of the chest were obtained. FINDINGS: Heart size is normal. The lungs are clear. The pleural spaces are clear. No pneumothorax. There are cholecystectomy clips. No acute osseous abnormality. XR/XR chest 2V IMPRESSION: No acute cardiopulmonary disease.
--- NOTE | 2024-02-11 11:29 | ED_ITS ---
HPI - Chest Pain General Chief Complaint: Recheck/Abnormal Lab/Rx Stated Complaint: Chest pain, SOB Time Seen by Provider: 02/11/24 15:06 Source: patient Mode of arrival: ambulatory Limitations: no limitations History of Present Illness ED Provider: CONSTANTIN ELDER narrative: 39 yo female with chronic anemia today's CBC is better than baseline, reactive airway disease post COVID in april who has been using her inhaler many times this week due to dyspnea and not feeling well she notes 2 weeks of dry cough, dyspnea, R sided chest pain worse with movements and palpation. Feels better when she uses her rescue inhaler. Never had asthma before. No fevers, sputum production, OCP use, travel/procedures. MD complaint: chest pain Onset (ago): week(s) (2) Timing of current episode: constant Prior episodes: Yes Onset: during rest Pain location: substernal and right chest Pain radiation: none Severity: moderate Quality: tightness Relieving factors: nothing Exacerbating factors: palpation, movement and other (coughing) Context: other (asthma like illness post COVID) Associated symptoms: dyspnea and other (runny nose, dry cough) Treatment prior to arrival: other (relief with albuterol inhaler) Related Data Home Medications ?Medication ?Instructions ?Recorded ?Confirmed lorazepam 0.5 mg tablet 0.5 mg PO BID PRN Anxiety 02/26/23 07/21/23 prazosin 2 mg capsule 2 mg PO BEDTIME 02/26/23 07/21/23 risperidone 3 mg tablet 3 mg PO BEDTIME 02/26/23 07/21/23 lorazepam 1 mg tablet 1 mg PO DAILY PRN 12/03/23 Previous Rx's ?Medication ?Instructions ?Recorded pantoprazole 40 mg tablet,delayed 40 mg PO DAILY #30 tabs 07/30/23 release melatonin 5 mg tablet 10 mg (2 x 5 mg) PO BEDTIME PRN 07/31/23 sleep 30 days #60 tabs sucralfate 1 gram tablet 1 g PO QIDACHS PRN reflux 21 days 08/25/23 #90 tabs hyoscyamine sulfate 0.125 mg 0.125 mg PO QID #20 tabs 09/08/23 tablet (Levsin) bismuth subsalicylate 262 mg 2 tab PO QID 14 days #112 tabs 09/18/23 chewable tablet (Bismuth) metronidazole 250 mg tablet 250 mg PO QID 14 days #56 tabs 09/18/23 omeprazole 20 mg capsule,delayed 20 mg PO BID 14 days #28 caps 09/18/23 release tetracycline 500 mg capsule 500 mg PO Q6H 14 days #56 caps 09/18/23 sumatriptan succinate 25 mg tablet 25 mg PO Q2-4H PRN migraine 10/24/23 headache 30 days #9 tabs ferrous sulfate 325 mg (65 mg 325 mg PO DAILY 90 days #90 tabs 11/11/23 iron) tablet cetirizine 10 mg tablet 10 mg PO DAILY PRN allergy 02/11/24 symptoms #30 tabs cyclobenzaprine 10 mg tablet 10 mg PO TID PRN muscle spasm #20 02/11/24 tabs fluticasone 250 mcg-salmeterol 50 1 inh inhalation BID #60 ea 02/11/24 mcg/dose blistr powdr for inhalation (Wixela Inhub) Allergies Allergy/AdvReac Type Severity Reaction Status Date / Time No Known Allergies Allergy Verified 02/11/24 11:33 Review of Systems 2 Review of Systems: Constitutional : No Weight loss, No Fever, No Chills ENT/Mouth : No sore throat, No Rhinorrhea Eyes: No Eye Pain, No Swelling Cardiovascular : pos Chest Pain, pos SOB, no Dyspnea on Exertion, No Orthopnea, No Edema, No Palpitations Respiratory : No Cough, No Sputum Gastrointestinal : no Nausea, No Vomiting, No Diarrhea, No abdominal Pain, No Hematochezia, No Melena Genitourinary : No Dysuria, No Urinary Frequency Musculoskeletal : No joint pain, No Myalgias, No Joint Swelling Skin : No Skin Lesions, No rash Neuro : No Weakness, No Numbness, No Dizziness, No Headache Psych : No Anxiety/Panic, No Depression All other systems reviewed and are negative PMFSH Past Medical History Attestation statement: The following information was validated with the patient. Source: old records reviewed Medical History HPV in female Surgical History No pertinent past surgical history Family History Family History Mother Diabetes Hypertension Arthritis Father No problems noted. Family/Other Mental health disorder Substance use disorder Social History Social History Housing: Apartment Alcohol intake: never Patient Tobacco Use Status: Never used Tobacco e-Cigarette/Vaping Use: Never Used Second Hand Smoke Exposure: No Advance Directives: No Advance Directives Information Provided: No Do you have a plan to hurt others: No Plan service: No Current occupational status: unemployed Cognitive needs: No Hearing needs: No Vision needs: No Physical Exam 2 Vital Signs: Vital Signs: Last Vital Signs Temp 97.9 F 02/11/24 11:30 Pulse 82 02/11/24 14:48 Resp 16 02/11/24 14:48 BP 152/95 H 02/11/24 14:48 Pulse Ox 100 02/11/24 14:48 O2 Del Method Room Air 02/11/24 14:48 BMI result Body Mass Index 34.8 Appearance: Alert. Oriented X3. No acute distress. Eyes: Pupils equal, round and reactive to light. ENT: Pharynx normal. Neck: Normal inspection. Neck supple. CVS: Normal heart rate and rhythm. Pulses normal. Chest: ttp along R side of chest and pectoralis reproduces pain Respiratory: No respiratory distress. Breath sounds normal. Abdomen: Soft and nontender. Skin: Skin warm and dry. Normal skin color. Normal skin turgor. Extremities: No lower extremity edema. No calf ttp Neuro: Oriented X 3. No motor deficit. No sensory deficit. Course Course Course Narrative: This is a Rapid Medical Examination (RME) performed by Zehra Kennedy PA-C in triage. Full HPI, ROS, assessment and treatment plan per primary provider in the Main ED. 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 states she was called by PCP today for abnormal labs showing anemia. labs were obtained approx 1 month ago. she is now reporting fatigue, right sided chest pain, and chest tightness. admits to using home albuterol inhaler at home without relief, using this more often. lungs cta b/l. reproducible anterior and lateral chest wall tenderness. No palpable deformity. Symmetric rise fall of chest. Plan: labs, trop, ekg, cxr Medical Decision Making Medical Decision Making MDM Narrative: 39 yo female with PMH of anemia and new inhaler use since dx of COVID back in April - she is not a smoker never had asthma before she comes in with increased dyspnea unsure if it is the weather dry cough and R sided chest wall pain x 1 week. No fevers, no OCP use, pain is reproduceable in nature. At this time labs, EKG, CXR and troponin negative. I think a lot of her symptoms are MSK in nature will start on muscle relaxers given increasing use of rescue inhaler will put on short course of steroid and LABA, she is going to follow up with PCP. PERC negative, distal pulses intact doubt dissection, no infectious symptoms to suggest pneumonia Differential Diagnosis Differential Diagnoses: The differential diagnosis associated with the presentation includes chest wall pain, reactive airway disease no risk factors for ACS PERC negative distal pulses intact doubt dissection Admission/Observation Consideration of admission/observation: Escalation of care including admission/observation considered work up negative can follow up as outpatient Lab Data MDM Lab Attestation statement: I reviewed the patient's lab results. 02/11/24 11:47 02/11/24 11:47 Labs: Lab Results 02/11/24 Range/Units 11:47 WBC 7.2 (4.8-10.8) X10*3/uL RBC 4.23 (4.20-5.50) X10*6/uL Hgb 11.9 L (12.0-16.0) g/dl Hct 37.1 (37.0-47.0) % MCV 87.7 (80.0-98.0) fL MCH 28.1 (27.0-33.0) pg MCHC 32.1 (31.0-35.0) g/dl RDW 13.2 (11.0-16.0) % Plt Count 366 (160-400) X10*3/uL MPV 9.6 (9.4-12.3) fL Immature Gran % (Auto) 0.1 (0.0-0.4) % Neut % (Auto) 59.8 (45-73) % Lymph % (Auto) 28.7 (20-40) % [place] % (Auto) 8.8 (2-11) % Eos % (Auto) 1.8 (0-4) % Baso % (Auto) 0.8 (0-2) % Lymph # (Auto) 2.1 (1.2-4.9) X10*3/uL [place] # (Auto) 0.6 (0.1-1.2) X10*3/uL Eos # (Auto) 0.1 (0.0-0.4) X10*3/uL Baso # (Auto) 0.1 (0.0-0.2) X10*3/uL Abs Immat Gran (auto) 0.01 (0.00-0.03) X10*3/uL Absolute Neuts (auto) 4.3 (2.0-8.3) x10*3/uL Absolute Nucleated RBC 0.000 (0.0-0.012) X10*3/uL Nucleated RBC % (auto) 0.0 (0.0-0.2) /100WBC Sodium 140 (135-145) mmol/L Potassium 4.0 (3.3-5.1) mmol/L Chloride 104 (96-108) mmol/L Carbon Dioxide 28 (22-29) mmol/L Anion Gap 12 (12-20) BUN 10 (9-16) mg/dL Creatinine 0.66 (0.5-1.4) mg/dL Estim Creat Clear Calc 122.4 Estimated GFR > 60 Random Glucose 111 (60-115) mg/dL Calcium 9.7 (8.4-10.2) mg/dL Total Bilirubin 0.5 (0.0-1.0) mg/dL AST 20 (5-31) U/L ALT 30 (0-31) U/L Alkaline Phosphatase 92 (39-117) U/L Troponin I High Sens < 2.7 (<3.5-17.0) ng/L Total Protein 8.4 H (6.5-8.0) g/dL Albumin 4.3 (3.5-5.0) g/dL Lipase 16 (8-78) U/L Beta HCG, Quant < 2 mIU/mL Independent Interpretation I performed an independent interpretation of an: EKG and Plain X-Ray (normal ) Interpretation: Rate: 93 Rhythm: NSR [place]: normal , LVH Normal P waves. Normal CARLO. Normal QRS complex. ST T wave : no YENI, inverted t waves III and V1 qTC: normal prior studies: no change from prior The study has been interpreted contemporaneously by me. . Radiology Impression Discussion of test interpretation with radiology: I have reviewed the radiologist's reading. External Record Review External record reviewed: Inpatient record Prescription Management I considered prescription management with: Other Discharge Plan Discharge Clinical Impression: Atypical chest pain RAD (reactive airway disease) Qualifiers: Asthma severity: mild Asthma persistence: persistent Asthma complication type: with acute exacerbation Qualified Code(s): J45.31 - Mild persistent asthma with (acute) exacerbation Patient Disposition: Home, Self-Care Instructions: Chest Pain (ED), Chest Wall Pain (ED), Wheezing (ED) Additional Instructions: please follow up with your doctor in regards to asthma - return here for any worsening symptoms or concerns chest xray normal hemoglobin 11.9 which is very good for you heart test in blood normal EKG reassuring try new allergy medication and new inhaler can still use rescue inhaler if wheezing persists. rinse mouth after use. the new inhaler might make it so you do not need your rescue inhaler Prescriptions: New cetirizine 10 mg tablet 10 mg PO DAILY PRN (Reason: allergy symptoms) Qty: 30 1RF fluticasone propion-salmeterol [Wixela Inhub] 250-50 mcg/dose blister with device 1 inh inhalation BID Qty: 60 0RF Rx Instructions: rinse mouth after use cyclobenzaprine 10 mg tablet 10 mg PO TID PRN (Reason: muscle spasm) Qty: 20 0RF No Action pantoprazole 40 mg tablet,delayed release (DR/EC) 40 mg PO DAILY Qty: 30 0RF melatonin 5 mg tablet 10 mg PO BEDTIME PRN (Reason: sleep) 30 Days Qty: 60 0RF omeprazole 20 mg capsule,delayed release(DR/EC) 20 mg PO BID 14 Days Qty: 28 0RF metronidazole 250 mg tablet 250 mg PO QID 14 Days Qty: 56 0RF bismuth subsalicylate [Bismuth] 262 mg tablet,chewable 2 tab PO QID 14 Days Qty: 112 0RF tetracycline 500 mg capsule 500 mg PO Q6H 14 Days Qty: 56 0RF sumatriptan succinate 25 mg tablet 25 mg PO Q2-4H PRN (Reason: migraine headache) 30 Days Qty: 9 2RF Rx Instructions: do not exceed 8 doses per 24 hrs ferrous sulfate 325 mg (65 mg iron) tablet 325 mg PO DAILY 90 Days Qty: 90 1RF risperidone 3 mg Tablet 3 mg PO BEDTIME lorazepam 0.5 mg Tablet 0.5 mg PO BID PRN (Reason: Anxiety) prazosin 2 mg Capsule 2 mg PO BEDTIME hyoscyamine sulfate [Levsin] 0.125 mg tablet 0.125 mg PO QID Qty: 20 0RF lorazepam 1 mg tablet 1 mg PO DAILY PRN sucralfate 1 gram tablet 1 g PO QIDACHS PRN (Reason: reflux) 21 Days Qty: 90 0RF Print Language: Romansh
[2024-02-11 11:30] VITALS: BP 151/99; PULSE 97; RESP 18; TEMP 36.6; O2SAT 100; BMI 34.8
[2024-02-11 11:52] LABS: MANUAL DIFF FLAG NO
[2024-02-11 11:53] LABS: Basophils Absolute Auto 0.1 X10*3/uL (0.0-0.2); Basophils Percent Auto 0.8 % (0-2); Eosinophils Absolute Auto 0.1 X10*3/uL (0.0-0.4); Eosinophils Percent Auto 1.8 % (0-4); Hematocrit 37.1 % (37.0-47.0); Hemoglobin 11.9 g/dl (12.0-16.0); Imm Gran Abs Auto 0.01 X10*3/uL (0.00-0.03); Imm Gran Pct Auto 0.1 % (0.0-0.4); Lymphocytes Absolute Auto 2.1 X10*3/uL (1.2-4.9); Lymphocytes Percent Auto 28.7 % (20-40); Mean Corpuscular HGB Conc 32.1 g/dl (31.0-35.0); Mean Corpuscular Hemoglobin 28.1 pg (27.0-33.0); Mean Corpuscular Volume 87.7 fL (80.0-98.0); Mean Platelet Volume 9.6 fL (9.4-12.3); Monocytes Absolute Auto 0.6 X10*3/uL (0.1-1.2); Monocytes Percent Auto 8.8 % (2-11); Neutrophils Absolute Auto 4.3 x10*3/uL (2.0-8.3); Neutrophils Percent Auto 59.8 % (45-73); Platelet Count 366 X10*3/uL (160-400); Red Blood Count 4.23 X10*6/uL (4.20-5.50); Red Cell Distribution Width 13.2 % (11.0-16.0); White Blood Count 7.2 X10*3/uL (4.8-10.8)
[2024-02-11 12:14] LABS: Alanine Aminotransferase 30 U/L (0-31); Albumin Level 4.3 g/dL (3.5-5.0); Alkaline Phosphatase 92 U/L (39-117); Anion Gap 12 (12-20); Aspartate Amino Transferase 20 U/L (5-31); Bilirubin Total 0.5 mg/dL (0.0-1.0); Blood Urea Nitrogen 10 mg/dL (9-16); Calcium 9.7 mg/dL (8.4-10.2); Carbon Dioxide 28 mmol/L (22-29); Chloride 104 mmol/L (96-108); Creatinine Clr Calc Pharmacy 122.4; Estimated Glomerular Filt Rate > 60; Glucose Random 111 mg/dL (60-115); Lipase 16 U/L (8-78); Sodium 140 mmol/L (135-145); Total Protein 8.4 g/dL (6.5-8.0)
[2024-02-11 12:17] LABS: HCG Quantitative < 2 mIU/mL; Troponin-I High Sensitivity < 2.7 ng/L (<3.5-17.0)
[2024-02-11 14:48] VITALS: BP 152/95; PULSE 82; RESP 16; O2SAT 100
[2024-02-11 15:39] VITALS: BP 152/95; PULSE 82; RESP 16; TEMP 37.1; O2SAT 100
== END 2024-02-11 15:40 | disposition home or self-care (01) ==
PROVIDERS: Physician Assistant Medical; Emergency Provider Emergency Medicine; PCP Internal Medicine
DX: J45.31 Mild persistent asthma with (acute) exacerbation (principal); R06.00 Dyspnea, unspecified; R07.9 Chest pain, unspecified; D64.9 Anemia, unspecified; R05.9 Cough, unspecified
CPT/HCPCS: 36415; 71046; 80053; 83690; 84484; 84702; 85025; 93005; 99283; 99284

== ENCOUNTER → 2024-02-11 11:10 | Outpatient (BNV) | payer OTHER, SELFPAY | PROVIDERS: PCP Internal Medicine; Visit Provider Internal Medicine Cardiovascular Disease | DX: R07.9 Chest pain, unspecified (principal) | CPT/HCPCS: 93010 ==

== ENCOUNTER 2024-04-11 08:23 | Outpatient (AMB) | payer OTHER, SELFPAY ==
--- NOTE | 2024-04-11 08:25 | A.OFFPC_ITS ---
Vital Signs 04/11/24 08:26 Height 5 ft 3 in Weight 199 lb BMI 35.2 BP 130/86 Blood Pressure Location Lt brachial Position Sitting Intake Visit Reasons: PE Intake Note: Patient here for a physical exam Poultry Veterinarian Required: No Accompanied by: Self / Same As Patient Allergies No Known Allergies Allergy (Verified 04/11/24 08:41) Medication List - Last Reconciled 04/11/24 by Rosalie Cantu MD cetirizine 10 mg PO DAILY PRN fluticasone propion-salmeterol 250-50 mcg/dose (Wixela Inhub) 1 inh inhalation BID 30 days lorazepam 0.5 mg PO BID PRN lorazepam 1 mg PO DAILY PRN prazosin 2 mg PO BEDTIME risperidone 3 mg PO BEDTIME sumatriptan succinate 25 mg PO Q2-4H PRN 30 days Tobacco use date assessed: 04/11/24 Dental Screening Dental Screen Date: 04/11/24 Did you have a dental visit in the last 12 months?: Yes Did you have a dental problem in the last 6 months where you did not have access to dental care?: No Was dental information given to patient?: Patient has dentist HPI HPI Comments History of Present Illness Details This is a 39-year-old female with mild major depression that comes for her physical exam. Depression is follow by behavioral health. Pap smear done 2022 was positive for HPV and this is follow by OBGYN. Denies any chest pain or shortness on breath. She has elevated total protein and will be referred to Hematology-Oncology. [facility] Medical History (Updated 04/11/24 @ 08:57 by Rosalie Cantu MD) HPV in female Surgical History No pertinent past surgical history Family History Mother Diabetes Hypertension Arthritis Father No problems noted. Family/Other Mental health disorder Substance use disorder Social History (Updated 04/11/24 @ 08:45 by Rosalie Cantu MD) Housing: Apartment Alcohol intake: current Alcohol intake frequency: holidays/special occasions only Patient Tobacco Use Status: Never used Tobacco e-Cigarette/Vaping Use: Never Used Second Hand Smoke Exposure: No service: No Current occupational status: unemployed Cognitive needs: No Hearing needs: No Vision needs: No Questionnaire PHQ-9 Over the last 2 weeks, how often have you been bothered by any of the following problems? 1. Little interest or pleasure in doing things: not at all 2. Feeling down, depressed, or hopeless: not at all 3. Trouble falling or staying asleep, or sleeping too much: more than half the days 4. Feeling tired or having little energy: more than half the days 5. Poor appetite or overeating: not at all 6. Feeling bad about yourself - or that you are a failure or have let yourself or your family down: not at all 7. Trouble concentrating on things, such as reading the newspaper or watching television: not at all 8. Moving or speaking so slowly that other people could have noticed. Or the opposite - being so fidgety or restless that you have been moving around a lot more than usual: not at all 9. Thoughts that you would be better off or of hurting yourself in some way: not at all Total score: 4 Depression Screening Interpretation: Positive Depression Screening Follow-up: Existing condition, In treatment, Community Mental Health Worker F/U and Follow- up Visit Requested Depression Screening Done: Yes [id number] - PHQ-9 Billing: Yes Source: Developed by Drs. Ernie Roberts, Javed Quevedo and colleagues, with an educational fiona from [employer]. Thrive Questionnaire Date Thrive assessed: 04/09/23 ENIO-7 AMB Questionnaire ENIO-7 Date ENIO - 7 assessed: 04/11/24 Feeling nervous, anxious, or on edge: 1 = Several days Not being able to stop or control worryin = Not at all Worrying too much about different things: 0 = Not at all Trouble relaxin = Several days Being so restless that it is hard to sit still: 0 = Not at all Becoming easily annoyed or irritable: 1 = Several days Feeling afraid as if something awful might happen: 1 = Several days Total ENIO-7 score (0-4 normal; 5-9 mild; 10-14 moderate; 15-21 severe): 4 Source: Developed by Drs. Ernie Roberts, Javed Quevedo and colleagues, with an educational fiona from [employer]. ENIO-7 Assessment Billing ENIO-7 Assessment Tool: ENIO-7 Assessment 85436 Review of Systems Const All systems reviewed & are unremarkable except as noted in HPI and below Card Denies chest pain at rest, Denies chest pain with activity, Denies edema, Denies irregular heart rhythm, Denies claudication, Denies dyspnea, Denies dyspnea on exertion, Denies orthopnea, Denies paroxysmal nocturnal dyspnea and Denies slow heart rate Resp Denies cough, Denies dyspnea and Denies dyspnea on exertion GI Denies abdominal pain, Denies change in bowel habits, Denies excessive flatus, Denies nausea and Denies vomiting Denies urinary incontinence, Denies urinary hesitancy and Denies urinary urgency Musc Denies atrophy, Denies deformity and Denies limited range of motion Skin/Breast Denies bleeding lesions, Denies changing lesions and Denies rash Physical exam (Primary Care) Vital Signs: Last Vital Signs BP 130/86 04/11/24 08:26 BMI result Body Mass Index 35.2 BMI Assessment/Plan discussion: High BMI High, discussed plan: lifestyle, weight reduction, dietary and physical activity Tobacco/Smoking Status: Tobacco use Status Tobacco use date assessed 04/11/24 04/11/24 08:33 Patient Tobacco Use Status Never used Tobacco 04/11/24 08:33 e-Cigarette/Vaping Use Never Used 04/11/24 08:33 PHQ-9: PHQ-9 Score PHQ-9: Total score 4 04/11/24 08:33 Depression Screening Interpretation: Positive Depression Screening Follow-up: Existing condition, In treatment, Community Mental Health Worker F/U and Follow- up Visit Requested Thrive Assessment: Date of Thrive Assessment Date Thrive assessed 04/09/23 04/11/24 08:33 [facility] Head: Yes normal to inspection, Yes normocephalic and Yes atraumatic Ears: external ears normal Eyes General: appearance normal, both eyes and all related structures Eyelids: Yes eyelids normal Conjunctivae: conjunctivae normal Neck Neck: Yes normal visual inspection and Yes supple Resp Effort & Inspection: normal respiratory effort Auscultation: clear to auscultation bilaterally Cardio Jugular venous distension: no JVD Rate: regular rate Rhythm: regular rhythm Heart sounds: S1 normal heart sound present and S2 normal heart sound present GI Inspection: Yes normal to inspection Palpation (GI): Soft to palpation and nontender Auscultation: normal bowel sounds Skin General skin exam: no rashes or lesions noted Neuro General: no focal motor deficits Extrem General: Yes full ROM Psych Appearance: grossly normal Assessment and Plan Assessment & Plan (1) Physical exam: Code(s): Z00.00 - Encounter for general adult medical examination without abnormal findings Plan: Repeat in a year. (2) Mild major depression: Code(s): F32.0 - Major depressive disorder, single episode, mild Plan: Continue Risperdal. Follow-up with psychiatry. (3) Elevated blood protein: Comment: Elevated protein minimal however will get protein electrophoresis Code(s): R77.9 - Abnormality of plasma protein, unspecified Plan: Referred to Hematology-Oncology. Orders: Referrals Hematology & Oncology Referral R77.9 - Abnormality of plasma protein, unspecified Coding Level of Care Code Est Pt Level 3 (28639) Est Pt Prev Care 18-39y(25221) Diagnoses Physical exam Z00.00 Mild major depression F32.0 Elevated blood protein R77.9 Additional Codes ENIO-7 Assessment Billing - ENIO-7 Assessment Tool: ENIO-7 Assessment 99375 ([id number]) Time Spent (min) 32
[2024-04-11 08:26] VITALS: BP 130/86; BMI 35.2
== END 2024-04-11 08:54 | disposition home or self-care (01) ==
PROVIDERS: PCP Internal Medicine; Visit Provider Internal Medicine
DX: Z00.00 Encounter for general adult medical examination without abnormal findings (principal); F32.0 Major depressive disorder, single episode, mild; R77.9 Abnormality of plasma protein, unspecified
CPT/HCPCS: 99395

== ENCOUNTER → 2024-06-21 10:33 | Outpatient (BNV) | payer OTHER, SELFPAY | PROVIDERS: PCP Internal Medicine; Referring Provider Internal Medicine; Visit Provider Internal Medicine | DX: R77.9 Abnormality of plasma protein, unspecified (principal) | CPT/HCPCS: 99204; 99213 ==

== ENCOUNTER 2024-09-25 04:21 | Emergency (ER) | payer OTHER, SELFPAY ==
[2024-09-25] VITALS (12 sets, daily range): BP systolic 98–176; BP diastolic 62–88; PULSE 94–134; RESP 14–20; TEMP 36.7–37; O2SAT 96–100; BMI 28.3
--- NOTE | 2024-09-25 05:29 | MHC.EDTECH ---
Patient belongings in POD LOCKER 1
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
--- NOTE | 2024-09-25 06:14 | PC.NURSE ---
pt daughter Clay- [phone]
[2024-09-25 06:16] LABS: MANUAL DIFF FLAG NO
[2024-09-25 06:17] LABS: Basophils Absolute Auto 0.1 X10*3/uL (0.0-0.2); Basophils Percent Auto 0.7 % (0-2); Eosinophils Percent Auto 0.4 % (0-4); Hemoglobin 12.1 g/dl (12.0-16.0); Imm Gran Abs Auto 0.03 X10*3/uL (0.00-0.03); Imm Gran Pct Auto 0.4 % (0.0-0.4); Lymphocytes Absolute Auto 1.8 X10*3/uL (1.2-4.9); Lymphocytes Percent Auto 22.8 % (20-40); Mean Corpuscular HGB Conc 31.8 g/dl (31.0-35.0); Mean Corpuscular Hemoglobin 27.4 pg (27.0-33.0); Mean Corpuscular Volume 86.2 fL (80.0-98.0); Mean Platelet Volume 9.7 fL (9.4-12.3); Monocytes Absolute Auto 0.6 X10*3/uL (0.1-1.2); Monocytes Percent Auto 6.8 % (2-11); Neutrophils Absolute Auto 5.6 x10*3/uL (2.0-8.3); Neutrophils Percent Auto 68.9 % (45-73); Platelet Count 397 X10*3/uL (160-400); Red Blood Count 4.41 X10*6/uL (4.20-5.50); Red Cell Distribution Width 12.5 % (11.0-16.0); White Blood Count 8.1 X10*3/uL (4.8-10.8)
[2024-09-25 06:36] LABS: Alanine Aminotransferase 42 U/L (0-31); Albumin Level 4.4 g/dL (3.5-5.0); Alkaline Phosphatase 87 U/L (39-117); Anion Gap 14 (12-20); Aspartate Amino Transferase 33 U/L (5-31); Bilirubin Direct 0.1 mg/dL (0.0-0.5); Bilirubin Total 0.3 mg/dL (0.0-1.0); Blood Urea Nitrogen 6 mg/dL (9-16); Calcium 8.9 mg/dL (8.4-10.2); Carbon Dioxide 22 mmol/L (22-29); Chloride 109 mmol/L (96-108); Creatinine Clr Calc Pharmacy 99.7; Estimated Glomerular Filt Rate > 60; Ethanol 119 mg/dL; Glucose Random 136 mg/dL (60-115); Potassium 4.2 mmol/L (3.3-5.1); Sodium 141 mmol/L (135-145); Total Protein 8.8 g/dL (6.5-8.0)
[2024-09-25 06:37] LABS: Acetaminophen LAB < 3 mcg/mL (<30); Salicylate < 5.0 mg/dL (15-30)
--- NOTE | 2024-09-25 06:39 | ED_ITS ---
HPI - General Adult General Chief complaint: Extremity Problem Stated complaint: left wrist laceration Time Seen by Provider: 09/25/24 04:26 Source: patient and family Mode of arrival: ambulatory Limitations: other History of Present Illness ED Provider: Dr. Sandra Page HPI narrative: Patient comes to the emergency room accompanied by her daughter. Seems that the patient has been drinking alcohol, patient reports that she is very depressed. Patient states that she is chronically depressed due to the of her brother who a few years ago from an overdose. Patient states that she has severe depression, patient states that she tries to stay happy and strong for everyone. However, today she reach her breaking phoned, grabbed a kitchen knife and sliced her left wrist. Patient states that she was trying to kill herself to join her brother. Patient states that she sees a psychologist. Patient states that today she became very upset because she got giles for the grave of her brother, when she went to asymmetry was closed. Therefore, she became very upset. Patient states that everyone in the family including her sister and mother a chronically depressed due to the of the brother. Related Data Home Medications ?Medication ?Instructions ?Recorded ?Confirmed fluticasone 250 mcg-salmeterol 50 1 ea inhalation BID 09/25/24 09/25/24 mcg/dose blistr powdr for inhalation (Advair Diskus) lorazepam 1 mg tablet 1 mg PO DAILY PRN Anxiety 09/25/24 09/25/24 prazosin 2 mg capsule 2 mg PO BID 09/25/24 09/25/24 risperidone 3 mg tablet 3 mg PO BEDTIME 09/25/24 09/25/24 Previous Rx's ?Medication ?Instructions ?Recorded cetirizine 10 mg tablet 10 mg PO DAILY PRN allergy 02/11/24 symptoms #30 tabs Allergies Allergy/AdvReac Type Severity Reaction Status Date / Time No Known Allergies Allergy Verified 09/25/24 04:33 Review of Systems 2 Review of Systems: Constitutional : No Weight loss, No Fever, No Chills, No Night Sweats, No Fatigue, No Malaise ENT/Mouth : No Hearing loss, No Ear Pain, No Nasal Congestion, No Sinus Pain, No Hoarseness, No sore throat, No Rhinorrhea, No Swallowing Difficulty Eyes: No Eye Pain, No Swelling, No Redness, No Foreign Body, No Discharge, No Vision Changes Cardiovascular : No Chest Pain, No SOB, No Dyspnea on Exertion, No Orthopnea, No Edema, No Palpitations Respiratory : No Cough, No Sputum, No Wheezing, No Smoke Exposure, No Dyspnea Gastrointestinal : No Nausea, No Vomiting, No Diarrhea, No Constipation, No abdominal Pain, No Hematochezia, No Melena Genitourinary : no irregular bleeding, No Dysuria, No Urinary Frequency, No Hematuria, No Urinary Incontinence, No Urgency, No Flank Pain, No Urinary Flow Changes, No Hesitancy Musculoskeletal : No joint pain, No Myalgias, No Joint Swelling Skin : Complaining of a laceration to the left wrist Neuro : No Weakness, No Numbness, No Paresthesias, No Loss of Consciousness, No Dizziness, No Headache Psych : Complaining of anxiety, depression, suicide attempt no HI Heme/Lymph: No Bruising, No Bleeding,No Lymphadenopathy Endocrine : No Polyuria, No Polydipsia, No Temperature Intolerance PMFSH Past Medical History Medical History Anxiety Migraines HPV in female Surgical History No pertinent past surgical history Family History Family History Mother Diabetes Hypertension Arthritis Father No problems noted. Family/Other Mental health disorder Substance use disorder Social History Social History Household Members: Family Housing: Apartment Alcohol intake: current Alcohol intake frequency: holidays/special occasions only Patient Tobacco Use Status: Never used Tobacco Smoked in Last 30 Days: No e-Cigarette/Vaping Use: Never Used Second Hand Smoke Exposure: No Use of substances other than those prescribed or required for medical reasons: No Advance Directives: No Do you have a plan to hurt others: No Plan Patient : No service: No Current occupational status: unemployed Gender identity: Female Cognitive needs: No Hearing needs: No Vision needs: No Physical Exam ED Vital Signs: Vital Signs - 24 hr 09/25/24 05:07 09/25/24 06:20 Temperature 98.0 F 98.0 F Pulse Rate 121 H 110 H Respiratory Rate 17 14 Blood Pressure 176/88 H 135/87 Pulse Oximetry 100 98 Oxygen Delivery Method Room Air Room Air BMI result Body Mass Index 28.3 Const Other: Appearance: Alert. Patient intoxicated, continuously repeating herself. Eyes: Pupils equal, round and reactive to light. ENT: Pharynx normal. Neck: Normal inspection. Neck supple. No lymph nodes noted. No crepitus CVS: Normal heart rate and rhythm. Pulses normal. Normal S1 and S2 Respiratory: No respiratory distress. Breath sounds normal. No Wheezing. No rales Abdomen: Soft and nontender. No rigidity. No distention. Skin: Skin warm and dry. Normal skin color. Normal skin turgor. See extremity below Extremities: Patient has a fairly deep laceration to the anterior aspect of the wrist, actively bleeding. Patient is able to flex and extend all fingers and wrist with no range of motion limitation, patient has normal strength 5/5 in both hands. Wrist was examined under a bloodless field, no obvious tendon lacerations. Neuro: Oriented X 3. No motor deficit. No sensory deficit. Moving all extremities. No slurred speech. CN 2 through 12 grossly intact Psych: calm, cooperative, crying Course Course Course Narrative: Patient received 8 stitches a wound continues subcu stitch with chromic gut. Bleeding controlled Patient is on a Section 12 Care team consult pending Procedures Laceration Laceration 1: Site: upper extremity Side (If applicable): left Size (cm): 6 Description: linear Depth: involves muscle layer Local Anesthetic: lidocaine 1% Amount of anesthesia used (mL): 10 Pre-repair: wound explored, irrigated extensively and deep structures intact Skin layer closed with: nylon Size (cm): 3-0 Number of sutures: 8 Technique: simple, interrupted Subcutaneous layer closed with: chromic gut Size: 5-0 Technique: running Medical Decision Making Medical Decision Making [facility] Narrative: My interpretation of labs: No significant abnormality in patient's hematology and chemistry. ETOH level 119, negative salicylate and acetaminophen level Urinalysis pending, urine toxicology pending Differential Diagnosis Differential Diagnoses: The differential diagnosis associated with the presentation includes (Suicide attempt, anxiety, depression, alcohol abuse/intoxication) Admission/Observation Consideration of admission/observation: Escalation of care including admission/observation considered (Patient will likely need inpatient level of care) Lab Data [facility] Lab Attestation statement: I reviewed the patient's lab results. 09/25/24 06:11 09/25/24 06:11 Labs: Lab Results 09/25/24 Range/Units 06:11 WBC 8.1 (4.8-10.8) X10*3/uL RBC 4.41 (4.20-5.50) X10*6/uL Hgb 12.1 (12.0-16.0) g/dl Hct 38.0 (37.0-47.0) % MCV 86.2 (80.0-98.0) fL MCH 27.4 (27.0-33.0) pg MCHC 31.8 (31.0-35.0) g/dl RDW 12.5 (11.0-16.0) % Plt Count 397 D (160-400) X10*3/uL MPV 9.7 (9.4-12.3) fL Immature Gran % (Auto) 0.4 (0.0-0.4) % Neut % (Auto) 68.9 (45-73) % Lymph % (Auto) 22.8 (20-40) % [place] % (Auto) 6.8 (2-11) % Eos % (Auto) 0.4 (0-4) % Baso % (Auto) 0.7 (0-2) % Lymph # (Auto) 1.8 (1.2-4.9) X10*3/uL [place] # (Auto) 0.6 (0.1-1.2) X10*3/uL Eos # (Auto) 0.0 (0.0-0.4) X10*3/uL Baso # (Auto) 0.1 (0.0-0.2) X10*3/uL Abs Immat Gran (auto) 0.03 (0.00-0.03) X10*3/uL Absolute Neuts (auto) 5.6 (2.0-8.3) x10*3/uL Absolute Nucleated RBC 0.000 (0.0-0.012) X10*3/uL Nucleated RBC % (auto) 0.0 (0.0-0.2) /100WBC Sodium 141 (135-145) mmol/L Potassium 4.2 (3.3-5.1) mmol/L Chloride 109 H (96-108) mmol/L Carbon Dioxide 22 (22-29) mmol/L Anion Gap 14 (12-20) BUN 6 L (9-16) mg/dL Creatinine 0.73 (0.5-1.4) mg/dL Estim Creat Clear Calc 99.7 Estimated GFR > 60 Random Glucose 136 H (60-115) mg/dL Calcium 8.9 D (8.4-10.2) mg/dL Total Bilirubin 0.3 (0.0-1.0) mg/dL Direct Bilirubin 0.1 (0.0-0.5) mg/dL AST 33 H (5-31) U/L ALT 42 H (0-31) U/L Alkaline Phosphatase 87 (39-117) U/L Total Protein 8.8 H (6.5-8.0) g/dL Albumin 4.4 (3.5-5.0) g/dL Salicylates < 5.0 L (15-30) mg/dL Acetaminophen < 3 (<30) mcg/mL Ethyl Alcohol 119 mg/dL Critical Care Time Critical Care Time Critical Care Time: Yes Total Critical Care Time: 60 Attestation: I have personally provided critical care time. Time includes review of lab data, radiology results, discussion with consultants, and monitoring for potential decompensation. Intervention performed as documented. Discharge Plan Discharge Clinical Impression: Suicide attempt, Laceration of left wrist Patient Disposition: Still a Patient Prescriptions: No Action cetirizine 10 mg tablet 10 mg PO DAILY PRN (Reason: allergy symptoms) Qty: 30 1RF fluticasone propion-salmeterol [Advair Diskus] 250-50 mcg/dose blister with device 1 ea INHALATION BID risperidone 3 mg tablet 3 mg PO BEDTIME lorazepam 1 mg tablet 1 mg PO DAILY PRN (Reason: Anxiety) prazosin 2 mg capsule 2 mg PO BID Print Language: Brazilian
[2024-09-25 07:01] LABS: Appearance Urine Clear; Color Urine Yellow; Glucose Urine UA Negative (Negative); Leukocyte Esterase Urine Negative (Negative); Nitrite Urine Negative (Negative); Specific Gravity - Urine 1.015 (1.005-1.025); Urine Blood Negative (Negative); Urine Ketones Negative (Negative); Urine Protein Negative (Neg-Trace)
[2024-09-25 07:06] LABS: Amphetamine Screen Urine Not Detected (Not Detect); Barbiturates, Urine Not Detected (Not Detect); Benzodiazepines Screen Urine Not Detected (Not Detect); Buprenorphine Scr Not Detected (Not Detect); Cannabinoid Screen Urine Not Detected (Not Detect); Cocaine Screen Urine Not Detected (Not Detect); Fentanyl, urine Not Detected (Not Detect); Methadone Screen, Urine Not Detected (Not Detect); Opiate Screen Urine Not Detected (Not Detect); Oxycodone Screen Urine Not Detected (Not Detect); Phencyclidine Screen Urine Not Detected (Not Detect)
--- NOTE | 2024-09-25 09:42 | PC.NURSE ---
Awaiting med verification per pharmacy
[2024-09-25] MEDS: risperiDONE 3 MG TABLET PO ×2 (09:45→22:32)
[2024-09-25] MEDS: Prazosin HCL 1 MG CAPSULE 2 MG PO (09:46)
--- NOTE | 2024-09-25 10:20 | MHC.EDTECH ---
patient request to shower I set her up with toilet trees fresh clean gown and fresh clean towel and face cloth. I cleaned and changed patient bed linen.
--- NOTE | 2024-09-25 11:30 | PC.NURSE ---
This RN was called to pt. in 3 for a fall. Pt. was seen sitting on the ground, leaning against the door frame. Pt.'s mother at bedside said that pt. had just gone to the bathroom to vomit, then got dizzy on her way back and fell. No HS or LOC. Pt. states that she felt dizzy and like she couldn't find her feet under her . Pt. assessed for visible injuries and VS taken (see worklist for VS). VSS, POC = 154. Pt. assisted back to bed by this RN and apparatus cleaner. supervisor burling and joining Betzy notified and Sunshine Mitchell MD notified. 11:44 - Sunshine Mitchell MD at bedside to assess. Orthostatics completed by apparatus cleaner - pt. +Orthostatic. Per MD Paula, pt. to be transferred back to main ED for IV fluids.
[2024-09-25 11:39] LABS: Glucose, Whole Blood 154 mg/dL (60-115)
--- NOTE | 2024-09-25 12:03 | PC.NURSE ---
Report given to Genoveva Montoya RN. Awaiting bed assignment per charge master coordinator in main ED
[2024-09-25] MEDS: 0.9 % Sodium Chloride 1,000 ML 999 ML IV (12:18)
--- NOTE | 2024-09-25 12:32 | PC.NURSE ---
IV established, fluids infusing. denies any pain at this time. laceration to left wrist re-wrapped. no drainage, no signs of infection. patient observer at bedside
[2024-09-25 12:36] LABS: HCG Quantitative < 2 mIU/mL
[2024-09-25 13:27] LABS: Basophils Percent Auto 0.4 % (0-2); Eosinophils Percent Auto 0.4 % (0-4); Hematocrit 29.8 % (37.0-47.0); Hemoglobin 9.7 g/dl (12.0-16.0); Imm Gran Abs Auto 0.04 X10*3/uL (0.00-0.03); Imm Gran Pct Auto 0.5 % (0.0-0.4); Lymphocytes Absolute Auto 1.4 X10*3/uL (1.2-4.9); Lymphocytes Percent Auto 16.2 % (20-40); MANUAL DIFF FLAG NO; Mean Corpuscular HGB Conc 32.6 g/dl (31.0-35.0); Mean Corpuscular Hemoglobin 27.5 pg (27.0-33.0); Mean Corpuscular Volume 84.4 fL (80.0-98.0); Mean Platelet Volume 9.6 fL (9.4-12.3); Monocytes Absolute Auto 0.6 X10*3/uL (0.1-1.2); Monocytes Percent Auto 7.4 % (2-11); Neutrophils Absolute Auto 6.4 x10*3/uL (2.0-8.3); Neutrophils Percent Auto 75.1 % (45-73); Platelet Count 290 X10*3/uL (160-400); Red Blood Count 3.53 X10*6/uL (4.20-5.50); Red Cell Distribution Width 12.9 % (11.0-16.0); White Blood Count 8.5 X10*3/uL (4.8-10.8)
[2024-09-25 13:41] LABS: Anion Gap 15 (12-20); Blood Urea Nitrogen 8 mg/dL (9-16); Calcium 8.1 mg/dL (8.4-10.2); Carbon Dioxide 20 mmol/L (22-29); Chloride 109 mmol/L (96-108); Estimated Glomerular Filt Rate > 60; Glucose Random 115 mg/dL (60-115); Sodium 140 mmol/L (135-145)
[2024-09-25 13:50] LABS: Troponin-I High Sensitivity < 2.7 ng/L (<3.5-17.0)
[2024-09-25 13:50] LABS: OBS Int Ctl Valid YES; OBS1 NEGATIVE (NEGATIVE)
--- NOTE | 2024-09-25 14:40 | PC.NURSE ---
patient resting quietly in stretcher. plan for repeat cbc at 1715
[2024-09-25 17:01] LABS: MANUAL DIFF FLAG NO
[2024-09-25 17:04] LABS: Basophils Absolute Auto 0.1 X10*3/uL (0.0-0.2); Basophils Percent Auto 0.4 % (0-2); Eosinophils Percent Auto 0.2 % (0-4); Hematocrit 30.3 % (37.0-47.0); Hemoglobin 9.6 g/dl (12.0-16.0); Imm Gran Abs Auto 0.06 X10*3/uL (0.00-0.03); Imm Gran Pct Auto 0.5 % (0.0-0.4); Lymphocytes Absolute Auto 1.8 X10*3/uL (1.2-4.9); Lymphocytes Percent Auto 15.8 % (20-40); Mean Corpuscular HGB Conc 31.7 g/dl (31.0-35.0); Mean Corpuscular Hemoglobin 27.4 pg (27.0-33.0); Mean Corpuscular Volume 86.6 fL (80.0-98.0); Monocytes Absolute Auto 0.8 X10*3/uL (0.1-1.2); Monocytes Percent Auto 7.5 % (2-11); Neutrophils Absolute Auto 8.5 x10*3/uL (2.0-8.3); Neutrophils Percent Auto 75.6 % (45-73); Platelet Count 302 X10*3/uL (160-400); Red Cell Distribution Width 12.9 % (11.0-16.0); White Blood Count 11.2 X10*3/uL (4.8-10.8)
[2024-09-25 21:13] LABS: MANUAL DIFF FLAG NO
[2024-09-25 21:14] LABS: Basophils Absolute Auto 0.1 X10*3/uL (0.0-0.2); Basophils Percent Auto 0.5 % (0-2); Eosinophils Absolute Auto 0.1 X10*3/uL (0.0-0.4); Eosinophils Percent Auto 0.7 % (0-4); Hematocrit 30.4 % (37.0-47.0); Hemoglobin 9.8 g/dl (12.0-16.0); Imm Gran Abs Auto 0.03 X10*3/uL (0.00-0.03); Imm Gran Pct Auto 0.3 % (0.0-0.4); Lymphocytes Absolute Auto 2.4 X10*3/uL (1.2-4.9); Lymphocytes Percent Auto 23.7 % (20-40); Mean Corpuscular HGB Conc 32.2 g/dl (31.0-35.0); Mean Corpuscular Hemoglobin 27.6 pg (27.0-33.0); Mean Corpuscular Volume 85.6 fL (80.0-98.0); Mean Platelet Volume 9.7 fL (9.4-12.3); Monocytes Absolute Auto 0.7 X10*3/uL (0.1-1.2); Monocytes Percent Auto 7.4 % (2-11); Neutrophils Absolute Auto 6.8 x10*3/uL (2.0-8.3); Neutrophils Percent Auto 67.4 % (45-73); Platelet Count 306 X10*3/uL (160-400); Red Blood Count 3.55 X10*6/uL (4.20-5.50); Red Cell Distribution Width 12.7 % (11.0-16.0)
--- NOTE | 2024-09-25 22:30 | MHC.EDTECH ---
pt belongings moved to [facility] 2.
[2024-09-25] MEDS: LORazepam 1 MG TABLET PO (22:32)
--- NOTE | 2024-09-25 23:00 | MHC.EDTECH ---
This Tech moved Pt belongings moved from [facility] closet shelf #2 to POD locker #8
--- NOTE | 2024-09-26 | ECG_ITS ---
Test Reason : PROLONGED QTC Blood Pressure : / mmHG Vent. Rate : 088 BPM Atrial Rate : 088 BPM P-R Int : 154 ms QRS Dur : 084 ms QT Int : 360 ms P-R-T Axes : 035 016 006 degrees QTc Int : 435 ms Normal sinus rhythm Normal ECG When compared with ECG of 11-FEB-2024 11:10, No significant change was found Referred By: Sandra Page Electronically Signed By:AMANDA FELICIANO
[2024-09-26 00:39] VITALS: BP 138/84; PULSE 100; RESP 18; TEMP 36.8; O2SAT 100
--- NOTE | 2024-09-26 07:34 | PC.NURSE ---
Assumed care of patient at 0645, patient appears to be sleeping at this time, respirations even and unlabored, no apparent distress this am. Continue plan of care for inpatient bedsearch
[2024-09-26] MEDS: Prazosin HCL 1 MG CAPSULE 2 MG PO ×2 (10:01→19:39)
--- NOTE | 2024-09-26 15:44 | PHA.MEDREC ---
Addendum entered by Allison Caicedo RPh 09/26/24 15:59: reviewed by [facility]. Original Note: Pharmacy Consult ? Medication Reconciliation Pharmacy has reviewed med rec done by nursing. Claims matches what nurse confirmed.
[2024-09-26 18:26] VITALS: BP 147/87; PULSE 88; RESP 20; TEMP 36.8; O2SAT 100
[2024-09-26] MEDS: risperiDONE 3 MG TABLET PO (19:38)
[2024-09-26] MEDS: LORazepam 1 MG TABLET PO (19:38)
[2024-09-26 19:39] VITALS: BP 160/93
[2024-09-26 19:49] VITALS: BP 160/93; PULSE 105; RESP 20; TEMP 36.7; O2SAT 99
[2024-09-26 19:50] VITALS: BP 160/93; PULSE 105; RESP 16; TEMP 36.7; O2SAT 99
== END 2024-09-26 20:09 | disposition home or self-care (01) ==
PROVIDERS: Emergency Medicine; Emergency Medicine Emergency Medical Services; Emergency Provider Emergency Medicine Emergency Medical Services; PCP Internal Medicine
DX: S61.512A Laceration without foreign body of left wrist, initial encounter (principal); R94.31 Abnormal electrocardiogram [ECG] [EKG]; X78.1XXA Intentional self-harm by knife, initial encounter; Y93.89 Activity, other specified; Y92.89 Other specified places as the place of occurrence of the external cause; Y99.8 Other external cause status; Z51.81 Encounter for therapeutic drug level monitoring; Z79.899 Other long term (current) drug therapy
CPT/HCPCS: 12032; 36415; 80048; 80076; 80143; 80179; 80307; 81003; 82272; 82947; 84484; 84702; 85025; 93005; 99285; S9485

== ENCOUNTER → 2024-09-26 10:42 | Outpatient (BNV) | payer OTHER, SELFPAY | PROVIDERS: Emergency Provider Emergency Medicine Emergency Medical Services; PCP Internal Medicine; Visit Provider Internal Medicine | DX: I45.81 Long QT syndrome (principal) | CPT/HCPCS: 93010 ==

== ENCOUNTER 2024-09-30 12:43 | Outpatient (REF) | payer OTHER, SELFPAY ==
[2024-09-30 14:40] LABS: INTERNATIONAL NORM RATIO 1.1 (0.9-1.1); Prothrombin Time 12.8 SEC (10.9-12.4)
[2024-09-30 14:41] LABS: Estimated Average Glucose 114 mg/dL; Hemoglobin A1C 105.6652 umol/L; Hemoglobin A1c % 5.6 % (<6.0); Total Hemoglobin (HGBA1C) 2814.1718 umol/L
[2024-09-30 15:07] LABS: Cholesterol 142 mg/dL (<200); HDL Cholesterol 54 mg/dL (>40); Iron 50 mcg/dL (30-160); LDL Cholesterol Calculated 75 mg/dL (<100); Percent Iron Saturation 18 % (15-50); Total Iron Binding Capacity 281 mcg/dL (228-428); Triglycerides 67 mg/dL (<150); Unsaturated Iron Binding 231 ug/dL
[2024-09-30 15:22] LABS: Ferritin 60 ng/mL (10-122); TSH reflex Free T4 1.15 uIU/mL (0.32-4.0)
[2024-10-01 08:15] LABS: Hepatitis A Antibody IgG Nonreactive (Nonreactive); ~Hepatitis A Antibody IgG 0.31 S/CO (0.00-0.99)
[2024-10-01 08:29] LABS: HBS Num1 24.13 mIU/mL (0-7.99); HBc Num1 0.08 S/CO (0.00-0.79); HBsAGNum1 0.39 S/CO (0.00-0.99); HIV AB/AG Nonreactive (Nonreactive); HIV Num 1 0.05 S/CO (0.00-0.99); Hepatitis B Core Antibody Nonreactive (Nonreactive); Hepatitis B Surface Antigen Negative (Negative); ~HepC Num1 0.21 S/CO (0.00-0.79); ~Hepatitis B Surface Antibody REACTIVE (Nonreactive); ~Hepatitis C Antibody Nonreactive (Nonreactive)
[2024-10-03 10:14] LABS: Immunoglobulin A 522 mg/dL (47-310); Immunoglobulin G 1731 mg/dL (600-1640)
[2024-10-03 10:23] LABS: Alpha 1 Anti-trypsin 143 mg/dL (83-199); Ceruloplasmin 37 mg/dL (14-48)
[2024-10-03 14:43] LABS: Anti Nuclear Antibody Screen NEGATIVE (NEGATIVE)
[2024-10-04 09:07] LABS: Mitochondrial Antibodies NEGATIVE (NEGATIVE)
[2024-10-04 14:17] LABS: Transglutaminase IgA <1.0 U/mL
[2024-10-05 14:13] LABS: Smooth Muscle Antibody <20 U (<20)
[2024-10-05 14:53] LABS: Liver Kidney Microsomal Ab <=20.0 U (<=20.0)
[2024-10-07 08:46] LABS: Phosphatidylethanol 16:0-18:1 74 (H); Phosphatidylethanol 16:0-18:2 68 (H)
== END 2024-09-30 12:44 | disposition home or self-care (01) ==
LOC: HO.LAB 12:43
PROVIDERS: PCP Internal Medicine; Visit Provider Internal Medicine
DX: K76.0 Fatty (change of) liver, not elsewhere classified (principal); R76.8 Other specified abnormal immunological findings in serum; F10.90 Alcohol use, unspecified, uncomplicated; Z11.59 Encounter for screening for other viral diseases; Z72.89 Other problems related to lifestyle
CPT/HCPCS: 36415; 80061; 80321; 82103; 82105; 82390; 82728; 82784; 83036; 83540; 84443; 85610; 86015; 86038; 86364; 86376; 86381; 86704; 86706; 86708; 86803; 87340; 87389; 99212

== ENCOUNTER 2024-09-30 12:43 | Outpatient (AMB) | payer OTHER, SELFPAY ==
--- NOTE | 2024-09-30 12:44 | A.OFFVIS_ITS ---
Vital Signs 09/30/24 12:48 Height 5 ft 3 in Weight 198 lb 6.656 oz BMI 35.1 BP 123/72 Blood Pressure Location Lt brachial Position Sitting Pulse 80 Intake Visit Reasons: Elevated blood protein(+)/Winnie pt Intake Note: Venessa presents in the office as a Winnie patient follow up for elevated blood pos for protein. CC: She states that she is not having any symptoms at this time. Transportation Economics Teacher Required: Yes Transportation Economics Teacher Name: Haleigh [id number] Allergies No Known Allergies Allergy (Verified 09/30/24 12:50) HPI Comments Details: This is a 39-year-old female past medical history of fatty liver, alcohol use disorder, severe depression with recent ER visit for suicidal attempts, who presents to the office for follow-up. Patient previously followed by [facility]. Last seen 2023. Reports no abdominal pain, nausea, vomiting. No changes in bowel habits. Recent anemia noted after wrist laceration, previous H&H normal. She is also intermittently had high gamma gap Previous workup positive for high total IgG. Of note, patient had positive blood alcohol level on arrival to the emergency room on 09/25. Reports drinking 3-4 margaritas 1 to 2 times a month. No current or previous drug use reported by the patient. Reports mother also has fatty liver, from metabolic causes. [facility] Medical History Anxiety Migraines HPV in female Surgical History No pertinent past surgical history Family History Mother Diabetes Hypertension Arthritis Father No problems noted. Family/Other Mental health disorder Substance use disorder Social History Household Members: Family Housing: Apartment Alcohol intake: current Alcohol intake frequency: holidays/special occasions only Patient Tobacco Use Status: Never used Tobacco e-Cigarette/Vaping Use: Never Used Second Hand Smoke Exposure: No service: No Current occupational status: unemployed Gender identity: Female Cognitive needs: No Hearing needs: No Vision needs: No Review of Systems Const All systems reviewed & are unremarkable except as noted in HPI and below Physical Exam Vital Signs: Last Vital Signs Pulse 80 09/30/24 12:48 BP 123/72 09/30/24 12:48 BMI result Body Mass Index 35.1 No apparent distress Nonicteric Abdomen soft, nondistended Alert and oriented x3, normal gait Assessment & Plan Assessment & Plan (1) MetALD: Code(s): K76.0 - Fatty (change of) liver, not elsewhere classified; F10.90 - Alcohol use, unspecified, uncomplicated Category: Medical (2) High total IgG: Code(s): R76.8 - Other specified abnormal immunological findings in serum Category: Medical Plan Reviewed with the patient, that likely has fatty liver from combination alcohol and metabolic risk factors. In addition, other etiologies for chronic liver disease need to be ruled out especially autoimmune hepatitis given increased total IgG and elevated gamma gout. Plan: -labs ordered as below -ultrasound abdomen -patient counseled on abstinence from alcohol -we will also obtain updated A1c and lipid panel for prognostication of metabolic risk profile Follow-up in 2 months Orders: Orders Alpha Fetoprotein Today K76.0 - Fatty (change of) liver, not elsewhere classified Ferritin Today K76.0 - Fatty (change of) liver, not elsewhere classified Hepatitis A IgG Today K76.0 - Fatty (change of) liver, not elsewhere classified Hepatitis B Surface Antibody Today K76.0 - Fatty (change of) liver, not elsewhere classified Hepatitis C Antibody Today K76.0 - Fatty (change of) liver, not elsewhere classified HIV Ab/Ag Today K76.0 - Fatty (change of) liver, not elsewhere classified Immunoglobulin A Today K76.0 - Fatty (change of) liver, not elsewhere classified IRON PROFILE Today K76.0 - Fatty (change of) liver, not elsewhere classified Prothrombin Time INR Today K76.0 - Fatty (change of) liver, not elsewhere classified Lipid Panel Today K76.0 - Fatty (change of) liver, not elsewhere classified Alpha 1 Anti-trypsin Today K76.0 - Fatty (change of) liver, not elsewhere classified NICHOLAS Reflex Titer and Pattern Today K76.0 - Fatty (change of) liver, not elsew here classified Ceruloplasmin Today K76.0 - Fatty (change of) liver, not elsewhere classified Hepatitis B Core Antibody Today K76.0 - Fatty (change of) liver, not elsewhere classified Hepatitis B Surface Antigen Today K76.0 - Fatty (change of) liver, not elsewhere classified Immunoglobulin G Today K76.0 - Fatty (change of) liver, not elsewhere classified Liver Kidney Microsomal Ab Today K76.0 - Fatty (change of) liver, not elsewhere classified Mitochondrial Antibody Today K76.0 - Fatty (change of) liver, not elsewhere classified Phosphatidylethanol, Blood Today K76.0 - Fatty (change of) liver, not elsewhere classified Smooth Muscle Antibody Today K76.0 - Fatty (change of) liver, not elsewhere classified Transglutaminase IgA Today K76.0 - Fatty (change of) liver, not elsewhere classified TSH reflex Free T4 Today K76.0 - Fatty (change of) liver, not elsewhere classified Hemoglobin A1c Today K76.0 - Fatty (change of) liver, not elsewhere classified US abdomen complete Today K76.0 - Fatty (change of) liver, not elsewhere classified Coding Level of Care Code Est Pt Level 4 (06282) Complex EM visit Add On G2211 Diagnoses MetALD K76.0; F10.90 High total IgG R76.8
[2024-09-30 12:48] VITALS: BP 123/72; PULSE 80; BMI 35.1
== END 2024-09-30 13:21 | disposition home or self-care (01) ==
PROVIDERS: PCP Internal Medicine; Visit Provider Internal Medicine
DX: K76.0 Fatty (change of) liver, not elsewhere classified (principal); F10.90 Alcohol use, unspecified, uncomplicated; R76.8 Other specified abnormal immunological findings in serum
CPT/HCPCS: 99214; G2211

== ENCOUNTER 2024-10-12 09:53 | Outpatient (AMB) | payer OTHER, SELFPAY ==
[2024-10-12 10:07] VITALS: BP 130/80; BMI 35.8
--- NOTE | 2024-10-12 10:07 | A.OFFPC_ITS ---
Vital Signs 10/12/24 10:07 Height 5 ft 3 in Weight 202 lb BMI 35.8 BP 130/80 Blood Pressure Location Lt brachial Position Sitting Intake Visit Reasons: depression Intake Note: Patient here for a follow up Depression Internal Controls Consultant Required: Yes Internal Controls Consultant Language: Senior Property Manager Name: Rosalie Cantu MD Information Interpreted: non-clinical & clinical Accompanied by: Self / Same As Patient Allergies No Known Allergies Allergy (Verified 10/12/24 10:49) Medication List - Last Reconciled 10/12/24 by Rosalie Cantu MD cetirizine 10 mg PO DAILY PRN fluticasone propion-salmeterol 250-50 mcg/dose (Advair Diskus) 1 ea inhalation BID lorazepam 1 mg PO DAILY PRN prazosin 2 mg PO BID risperidone 3 mg PO BEDTIME sumatriptan succinate mg PO Tobacco use date assessed: 10/12/24 Dental Screening Dental Screen Date: 10/12/24 Did you have a dental visit in the last 12 months?: Yes Did you have a dental problem in the last 6 months where you did not have access to dental care?: No Was dental information given to patient?: Patient has dentist HPI HPI Comments History of Present Illness Details The patient is a 39-year-old female presenting with anxiety disorder, insomnia, depression, and migraines. She is currently taking psychiatric medications including Lorazepam, Prazosin, and Risperdal. She also uses Sumatriptan as needed for migraines. The patient reported an increase in alcohol consumption, noting she now drinks beer and liquor approximately once or twice a month. She mentioned previous discomfort due to tightly placed medical sutures, which have since been removed by patient. Additionally, she is followed by a hospital manager for liver-specific concerns, with one pending test result but overall normal findings thus far. [facility] Medical History Anxiety Migraines HPV in female Surgical History No pertinent past surgical history Family History Mother Diabetes Hypertension Arthritis Father No problems noted. Family/Other Mental health disorder Substance use disorder Social History (Updated 10/12/24 @ 10:52 by Rosalie Cantu MD) Household Members: Family Housing: Apartment Alcohol intake: current Alcohol intake frequency: a few times a month Alcohol type: beer and hard liquor Patient Tobacco Use Status: Never used Tobacco e-Cigarette/Vaping Use: Never Used Second Hand Smoke Exposure: No service: No Current occupational status: unemployed Gender identity: Female Cognitive needs: No Hearing needs: No Vision needs: No Questionnaire PHQ-9 Over the last 2 weeks, how often have you been bothered by any of the following problems? 1. Little interest or pleasure in doing things: not at all 2. Feeling down, depressed, or hopeless: several days 3. Trouble falling or staying asleep, or sleeping too much: several days 4. Feeling tired or having little energy: several days 5. Poor appetite or overeating: not at all 6. Feeling bad about yourself - or that you are a failure or have let yourself or your family down: not at all 7. Trouble concentrating on things, such as reading the newspaper or watching television: not at all 8. Moving or speaking so slowly that other people could have noticed. Or the opposite - being so fidgety or restless that you have been moving around a lot more than usual: several days 9. Thoughts that you would be better off or of hurting yourself in some way: not at all Total score: 4 Depression Screening Interpretation: Positive Depression Screening Follow-up: Existing condition, In treatment and Follow-up Visit Requested Depression Screening Done: Yes 95429 - PHQ-9 Billing: Yes Source: Developed by Drs. Ernie Roberts, Yesy Hook, Javed Aden and colleagues, with an educational fiona from [employer]. Thrive Questionnaire Date Thrive assessed: 10/12/24 I am a: Patient What is your living situation today?: I have a steady place to live Within the past 12 months, did the food you bought not last and you didn't have the money to get more?: Never true Within the past 12 months, did you worry whether your food would run out before you got money to buy more?: Never true Do you have trouble paying for medicines?: No Do you have trouble getting transportation to medical appointments?: No Do you have trouble paying your heating and electricity bill?: No Do you have trouble taking care of your child, family member or friend?: No Do you have trouble with day-to-day activities such as bathing, preparing meals, shopping, managing finances, etc.?: No Are you currently unemployed and looking for a job?: No Are you interested in more education?: No Please select the resources that you would like help with: None Currently or been in a relationship where the following occur: No concerns reported THRIVE Score: 0 AUDIT C Alcohol Use Questionnaire (AUDIT-C) 1. How often do you have a drink containing alcohol?: Monthly or less 2. How many drinks containing alcohol do you have on a typical day when you are drinking?: 1 or 2 3. How often do you have six or more drinks on one occasion?: Never Total Score: 1 ENIO-7 AMB Questionnaire ENIO-7 Date ENIO - 7 assessed: 10/12/24 Feeling nervous, anxious, or on edge: 1 = Several days Not being able to stop or control worryin = Not at all Worrying too much about different things: 1 = Several days Trouble relaxin = Several days Being so restless that it is hard to sit still: 0 = Not at all Becoming easily annoyed or irritable: 1 = Several days Feeling afraid as if something awful might happen: 1 = Several days Total ENIO-7 score (0-4 normal; 5-9 mild; 10-14 moderate; 15-21 severe): 5 Source: Developed by Drs. Ernie Roberts, Yesy Hook, Javed Aden and colleagues, with an educational fiona from [employer]. ENIO-7 Assessment Billing ENIO-7 Assessment Tool: ENIO-7 Assessment 65243 Review of Systems Const All systems reviewed & are unremarkable except as noted in HPI and below Card Denies chest pain at rest, Denies chest pain with activity, Denies edema, Denies irregular heart rhythm, Denies claudication, Denies dyspnea, Denies dyspnea on exertion, Denies orthopnea, Denies paroxysmal nocturnal dyspnea and Denies slow heart rate Resp Denies cough, Denies dyspnea and Denies dyspnea on exertion GI Denies abdominal pain, Denies change in bowel habits, Denies excessive flatus, Denies nausea and Denies vomiting Denies urinary incontinence, Denies urinary hesitancy and Denies urinary urgency Musc Denies abnormal gait, Denies atrophy, Denies deformity and Denies limited range of motion Skin/Breast Denies bleeding lesions, Denies changing lesions and Denies rash Neuro Denies abnormal gait, Denies behavioral changes and Denies lack of coordination Psych Denies behavioral changes Physical exam (Primary Care) Vital Signs: Last Vital Signs BP 130/80 10/12/24 10:07 BMI result Body Mass Index 35.8 BMI Assessment/Plan discussion: High BMI High, discussed plan: lifestyle, weight reduction, dietary and physical activity Tobacco/Smoking Status: Tobacco use Status Tobacco use date assessed 10/12/24 10/12/24 10:13 Patient Tobacco Use Status Never used Tobacco 10/12/24 10:52 e-Cigarette/Vaping Use Never Used 10/12/24 10:52 PHQ-9: PHQ-9 Score PHQ-9: Total score 4 10/12/24 10:54 Depression Screening Interpretation: Positive Depression Screening Follow-up: Existing condition, In treatment and Follow-up Visit Requested Thrive Assessment: Date of Thrive Assessment Date Thrive assessed 10/12/24 10/12/24 10:13 Currently or been in a relationship where the following occur: No concerns reported Resp Effort & Inspection: normal respiratory effort Auscultation: clear to auscultation bilaterally Cardio Jugular venous distension: no JVD Rate: regular rate Rhythm: regular rhythm Heart sounds: S1 normal heart sound present and S2 normal heart sound present Extrem General: Yes full ROM Office Procedures Flu Questionnaire Does the patient have a severe egg allergy?: No Immunizations Fluarix Triv [id number] (PF) 45 mcg (15 mcg x 3)/0.5 mL IM syringe Performing Provider: Rosalie Cantu MD [facility] Documented (not given) by: TANVIR Taylor on 10/12/24 10:13 Reason Not Given: Patient Refused Coding Level of Care Code Est Pt Level 4 (67199) Complex EM visit Add On G2211 Diagnoses Mild major depression F32.0 Anxiety F41.9 Migraines G43.909 NAFLD (nonalcoholic fatty liver disease) K76.0 Additional Codes ENIO-7 Assessment Billing - ENIO-7 Assessment Tool: ENIO-7 Assessment 88323 ([id number]) PHQ-9 - 90984 - PHQ-9 Billing: Yes ([id number]) Time Spent (min) 23 Assessment & Plan Assessment & Plan (1) Mild major depression: Code(s): F32.0 - Major depressive disorder, single episode, mild Category: Medical (2) Anxiety: Code(s): F41.9 - Anxiety disorder, unspecified Category: Medical (3) Migraines: Code(s): G43.909 - Migraine, unspecified, not intractable, without status migrainosus Category: Medical (4) NAFLD (nonalcoholic fatty liver disease): Comment: Dietary modification Code(s): K76.0 - Fatty (change of) liver, not elsewhere classified Category: Medical Plan - Continue current psychiatric medications: Lorazepam, Prazosin, and Risperdal. - Use Sumatriptan as needed for migraines. - Monitor alcohol consumption and its potential impact on mental health and medication effectiveness. - Follow up with gastroenterology for pending liver test result and subsequent management. Patient was informed and verbally consented to the use of an ambient scribe for clinic note documentation during this visit. During the visit, we discussed the ongoing management of psychiatric conditions including anxiety, insomnia, and depression. The patient is advised to maintain current medication regimens and monitor any potential interactions with alcohol consumption. We reviewed the status of her liver tests with a pending result and decided to continue with the gastroenterology follow-up in two months. The patient is advised on the importance of compliance with psychiatric follow-ups and to address any increase in symptoms or changes in mental health. Orders: Orders Influenza [id number] Immunization Today Z23 - Encounter for immunization Patient Instructions: - Take prescribed medications as directed. - Reduce alcohol consumption to minimize any adverse impacts on health. - Follow up with your hospital manager for liver test results as scheduled. - Contact the clinic if you experience worsened symptoms or concerns.
--- OUTSIDE RECORDS SUMMARY | 2024-10-12 10:46 | XMS_ITS | Clinical Summary ---
Author Organization [facility] ity Address [address] [place] [address] Care Team Providers Care Mustanger Name Role Phone Rosalie Cantu MD Primary Care Provider [phone] Social History Tobacco Use Types Packs/Day Years Used Date Smoking Tobacco: Never Assessed Sex and Gender Information Value Date Recorded Sex Assigned at Not on file Gender Identity Not on file Sexual Orientation Not on file Plan of Treatment Health Maintenance Due Date Last Done Comments Hepatitis B Vaccines (1 of 3 - 19+ 3-dose series) 2005 Cervical Cancer Screening: P ap Smear 2007 COVID-19 Vaccine (2023-2 5 season) 2024 Influenza Vaccine (#1) 2024 06/30/2017 DTaP,Tdap,and Td Vaccines (2 - Td or Tdap) 05/22/2027 05/22/2017 HIB Vaccines Aged Out No longer eligi ble based on patient's age to complete this topic HPV Vaccines Aged Out No longer eligi ble based on patient's age to complete this topic Hepatitis A Vaccines Aged Out No long er eligible based on patient's age to complete this topic IPV Vaccines Aged Out No longer eligi ble based on patient's age to complete this topic MMR Vaccines Aged Out No longer eligi ble based on patient's age to complete this topic Meningococcal ACWY Vaccine Aged Out N o longer eligible based on patient's age to complete this topic Pneumococcal Vaccine: Pediat rics (0 to 5 Years) and At-Risk Patients (6 to 64 Years) Aged Out No longer eligi ble based on patient's age to complete this topic RSV Immunization Patients Un marcus 20 months Aged Out No longer eligible b ased on patient's age to complete this topic Varicella Vaccines Aged Out No longer eligible based on patient's age to complete this topic Care Teams Mustanger Relationship Specialty Start Date End Date Rosalie Cantu MD [address] [place] [address] Dr[address] [facility] D[facility] RUFINO Harrison PCP - General Internal Medicine 01/07/17
== END 2024-10-12 10:55 | disposition home or self-care (01) ==
PROVIDERS: PCP Internal Medicine; Visit Provider Internal Medicine
DX: F32.0 Major depressive disorder, single episode, mild (principal); F41.9 Anxiety disorder, unspecified; G43.909 Migraine, unspecified, not intractable, without status migrainosus; K76.0 Fatty (change of) liver, not elsewhere classified; Z23 Encounter for immunization

== ENCOUNTER → 2024-10-12 09:53 | Outpatient (BNVA) | payer OTHER, SELFPAY | PROVIDERS: PCP Internal Medicine; Visit Provider Internal Medicine | DX: F32.0 Major depressive disorder, single episode, mild (principal); F41.9 Anxiety disorder, unspecified; G43.909 Migraine, unspecified, not intractable, without status migrainosus; K76.0 Fatty (change of) liver, not elsewhere classified | CPT/HCPCS: 90471; 96127; 99212 ==

== ENCOUNTER → 2024-10-26 09:10 | Outpatient (REF) | payer OTHER, SELFPAY ==
--- NOTE | ~2024-10-26 | US_ITS ---
CLINICAL HISTORY: K76.0 - Fatty (change of) liver, not elsewhere classified US abdomen complete Comparison: US/MO/SR - US ABDOMEN COMPLETE - 09/30/23 09:[address]/SR - ABD PELV W IV CON ONLY [id number] - 08/18/17 21:27 EST MR - MRI ABD WITHOUT CONTRAST [id number] - 02/13/11 12:16 EDT Findings: The visualized pancreas is normal. The aorta and inferior vena cava are normal caliber. Hepatic steatosis. Liver is normal size. No discrete mass. There is no intrahepatic bile duct dilatation. The common duct is 4 mm in diameter. Cholecystectomy The main portal vein is antegrade. The right kidney is 11.3 cm in length. The left kidney is 12.7 cm in length. The spleen is normal. No ascites. IMPRESSION: Hepatic steatosis. No acute findings. No discrete mass This document has been electronically signed by: Corey Patel MD on 10/27/2024 02:12:41
--- OUTSIDE RECORDS SUMMARY | 2024-10-26 09:30 | XMS_ITS | Clinical Summary ---
Author Organization [facility] ity Address [address] [place] [address] Care Team Providers Care Pan Washer Hand Name Role Phone Rosalie Cantu MD Primary Care Provider [phone] Social History Tobacco Use Types Packs/Day Years [...] age to complete this topic Care Teams Pan Washer Hand Relationship Specialty Start Date End Date Rosalie Cantu MD [address] [place] [address] Dr[address] [facility] D[facility]A: [facility] RUFINO Harrison PCP - General Internal Medicine 01/07/17
== END | disposition home or self-care (01) ==
LOC: HO.US 09:10
PROVIDERS: PCP Internal Medicine; Visit Provider Internal Medicine
DX: K76.0 Fatty (change of) liver, not elsewhere classified (principal)
CPT/HCPCS: 76700

== ENCOUNTER → 2024-10-26 09:12 | Outpatient (BNV) | payer OTHER, SELFPAY | PROVIDERS: PCP Internal Medicine; Visit Provider Radiology Diagnostic Radiology | DX: K76.0 Fatty (change of) liver, not elsewhere classified (principal) | CPT/HCPCS: 76700 ==

== ENCOUNTER 2024-11-30 10:24 | Outpatient (REF) | payer OTHER, SELFPAY ==
[2024-11-30 11:13] LABS: MANUAL DIFF FLAG NO
[2024-11-30 11:46] LABS: Basophils Absolute Auto 0.1 X10*3/uL (0.0-0.2); Basophils Percent Auto 0.8 % (0-2); Eosinophils Absolute Auto 0.2 X10*3/uL (0.0-0.4); Eosinophils Percent Auto 2.7 % (0-4); Hematocrit 34.7 % (37.0-47.0); Hemoglobin 10.8 g/dl (12.0-16.0); Imm Gran Abs Auto 0.02 X10*3/uL (0.00-0.03); Imm Gran Pct Auto 0.3 % (0.0-0.4); Lymphocytes Absolute Auto 2.2 X10*3/uL (1.2-4.9); Lymphocytes Percent Auto 30.1 % (20-40); Mean Corpuscular HGB Conc 31.1 g/dl (31.0-35.0); Mean Corpuscular Hemoglobin 26.7 pg (27.0-33.0); Mean Corpuscular Volume 85.9 fL (80.0-98.0); Mean Platelet Volume 9.7 fL (9.4-12.3); Monocytes Absolute Auto 0.5 X10*3/uL (0.1-1.2); Monocytes Percent Auto 7.3 % (2-11); Neutrophils Absolute Auto 4.3 x10*3/uL (2.0-8.3); Neutrophils Percent Auto 58.8 % (45-73); Platelet Count 383 X10*3/uL (160-400); Red Blood Count 4.04 X10*6/uL (4.20-5.50); Red Cell Distribution Width 12.6 % (11.0-16.0); White Blood Count 7.3 X10*3/uL (4.8-10.8)
[2024-11-30 12:29] LABS: Iron 53 mcg/dL (30-160); Percent Iron Saturation 18 % (15-50); Total Iron Binding Capacity 294 mcg/dL (228-428); Unsaturated Iron Binding 241 ug/dL
[2024-11-30 12:48] LABS: Ferritin 58 ng/mL (10-122)
--- OUTSIDE RECORDS SUMMARY | 2024-11-30 12:53 | XMS_ITS | Clinical Summary ---
Author Organization [facility] ity Address [address] [place] [address] Care Team Providers Care Personnel Consultant Name Role Phone Rosalie Cantu MD Primary Care Provider [phone] Social History Tobacco Use Types Packs/Day Years [...] age to complete this topic Care Teams Personnel Consultant Relationship Specialty Start Date End Date Rosalie Cantu MD [address] [facility] , [address] [facility] D[facility]B/A: [facility] RUFINO Harrison PCP - General Internal Medicine 01/07/17
[2024-11-30 13:20] LABS: Folate 11.9 ng/mL (> or = 4.0); Vitamin B12 239 pg/mL (200-900)
[2024-12-02 12:59] LABS: Prot Elec - Albumin 3.8 g/dL (3.8-4.8); Prot Elec - Alpha1 0.3 g/dL (0.2-0.3); Prot Elec - Alpha2 0.6 g/dL (0.5-0.9); Prot Elec - Beta 1 0.5 g/dL (0.4-0.6); Prot Elec - Beta 2 0.6 g/dL (0.2-0.5); Prot Elec - Gamma 1.6 g/dL (0.8-1.7); Prot Elec - Total Protein 7.4 g/dL (6.1-8.1)
== END 2024-11-30 10:25 | disposition home or self-care (01) ==
LOC: HO.LAB 10:24
PROVIDERS: Physician Assistant; PCP Internal Medicine; Visit Provider Internal Medicine
DX: D64.9 Anemia, unspecified (principal); K76.0 Fatty (change of) liver, not elsewhere classified; R77.9 Abnormality of plasma protein, unspecified; F10.90 Alcohol use, unspecified, uncomplicated
CPT/HCPCS: 36415; 82607; 82728; 82746; 83540; 84165; 85025; 99212

== ENCOUNTER 2024-11-30 10:24 | Outpatient (AMB) | payer OTHER, SELFPAY ==
[2024-11-30 10:37] VITALS: BP 137/80; PULSE 75; BMI 35.5
--- NOTE | 2024-11-30 10:37 | A.OFFVIS_ITS ---
Vital Signs 11/30/24 10:37 Height 5 ft 3 in Weight 200 lb 9.93 oz BMI 35.5 BP 137/80 Blood Pressure Location Lt brachial Position Sitting Pulse 75 Intake Visit Reasons: elevated LFTs Intake Note: Venessa presents in the office as a new patient for elevated LFTs. CC: She states that she is not having any GI concerns at this time other than her labs. Membership Advisor Required: Yes Allergies No Known Allergies Allergy (Verified 10/12/24 10:49) HPI Comments Details: This is a 39-year-old female past medical history of fatty liver, alcohol use disorder, severe depression with ER visit 09/2024 for suicidal attempt follows with our office for elevated LFTs. Patient previously followed by [facility]. Last seen 2023. Reports no abdominal pain, nausea, vomiting. No changes in bowel habits. Recent anemia noted after wrist laceration, previous H&H normal. She is also intermittently had high gamma gap Previous workup positive for high total IgG. Of note, patient had positive blood alcohol level on arrival to the emergency room on 09/25. Reports drinking 3-4 margaritas 1 to 2 times a month. No current or previous dr ug use reported by the patient. Reports mother also has fatty liver, from metabolic causes. 11/30/24: Here for follow up. Reports no acute issues to include abd pain, N,V. Labs reviewed - essentially normal and consistent with metALD. Anemia likely 2/2 acute blood loss after wrist laceration 09/25/24 will recheck. Fib 4 is 0.63. US abd: The visualized pancreas is normal. The aorta and inferior vena cava are normal caliber. Hepatic steatosis. Liver is normal size. No discrete mass. There is no intrahepatic bile duct dilatation. The common duct is 4 mm in diameter. Cholecystectomy The main portal vein is antegrade. The right kidney is 11.3 cm in length. The left kidney is 12.7 cm in length. The spleen is normal. No ascites. [facility] Medical History Anxiety Migraines HPV in female Surgical History No pertinent past surgical history Family History Mother Diabetes Hypertension Arthritis Father No problems noted. Family/Other Mental health disorder Substance use disorder Social History Household Members: Family Housing: Apartment Alcohol intake: current Alcohol intake frequency: a few times a month Alcohol type: beer and hard liquor Patient Tobacco Use Status: Never used Tobacco e-Cigarette/Vaping Use: Never Used Second Hand Smoke Exposure: No service: No Current occupational status: unemployed Gender identity: Female Cognitive needs: No Hearing needs: No Vision needs: No Review of Systems Const All systems reviewed & are unremarkable except as noted in HPI and below Physical Exam Vital Signs: Last Vital Signs Pulse 75 11/30/24 10:37 BP 137/80 11/30/24 10:37 BMI result Body Mass Index 35.5 No apparent distress Nonicteric Abdomen soft, nondistended Alert and oriented x3, normal gait Assessment & Plan Assessment & Plan (1) MetALD: Code(s): K76.0 - Fatty (change of) liver, not elsewhere classified; F10.90 - Alcohol use, unspecified, uncomplicated Category: Medical (2) Anemia: Code(s): D64.9 - Anemia, unspecified Category: Medical Plan 1. MetALD: Reviewed with the patient, that likely has fatty liver from combination alcohol and metabolic risk factors. Other etiologies for chronic liver disease have been ruled out as above. Fib 4 is low at 0.63 i.e advanced fibrosis/cirrhosis ruled out. Plan: - EtOH abstinence reinforced - Modification of metabolic factors including obesity reviewed - Pt will be discharged back to PCP's care for cont'd care 2. Anemia Likely 2/2 acute blood loss after wrist laceration in Sep. Plan: - Get updated CBC - Will also get B12 and folate. Iron normal. Follow up PRN Orders: Orders Vitamin B12 and Folate Today D64.9 - Anemia, unspecified Complete Blood Count Auto Diff Today D64.9 - Anemia, unspecified Coding Level of Care Code Est Pt Level 4 (14559) Diagnoses MetALD K76.0; F10.90 Anemia D64.9
--- OUTSIDE RECORDS SUMMARY | 2024-11-30 11:56 | XMS_ITS | Clinical Summary ---
Author Organization [facility] ity Address [address] [place] [address] Care Team Providers Care Hair Tinter Name Role Phone Rosalie Cantu MD Primary Care Provider [phone] Social History Tobacco Use Types Packs/Day Years Used Date Smoking Tobacco: Never Assessed Comments Unknown Sex and Gender Information Value Date Recorded Sex Assigned at Not on file Legal Sex Female 6:52 PM EST Gender Identity Not on file Sexual Orientation Not on file Plan of Treatment Health Maintenance Due Date Last Done Comments Hepatitis B Vaccines (1 of 3 - 19+ 3-dose series) 2005 Cervical Cancer Screening: P ap Smear 2007 COVID-19 Vaccine ( - 2023-2 5 season) 2024 Influenza Vaccine (#1) 2024 [...] patient's age to complete this topic Meningococcal B Vacine Aged Out No lo nger eligible based on patient's age to complete [...] age to complete this topic Care Teams Hair Tinter Relationship Specialty Start Date End Date Rosalie Cantu MD [address] [facility] , [address] [facility] D[facility] RUFINO Harrison PCP - General Internal Medicine 01/07/17
== END 2024-11-30 10:59 | disposition home or self-care (01) ==
LOC: HO.HGI 10:25
PROVIDERS: PCP Internal Medicine; Visit Provider Internal Medicine
DX: K76.0 Fatty (change of) liver, not elsewhere classified (principal); F10.90 Alcohol use, unspecified, uncomplicated; D64.9 Anemia, unspecified
CPT/HCPCS: 99214

== ENCOUNTER 2025-04-18 10:08 | Outpatient (REF) | payer OTHER, SELFPAY ==
[2025-04-18 10:56] LABS: MANUAL DIFF FLAG NO
[2025-04-18 11:32] LABS: Hematocrit 33.5 % (37.0-47.0); Hemoglobin 10.5 g/dl (12.0-16.0); Imm Gran Abs Auto 0.11 X10*3/uL (0.00-0.03); Imm Gran Pct Auto 1.3 % (0.0-0.4); Lymphocytes Absolute Auto 2.3 X10*3/uL (1.2-4.9); Mean Corpuscular HGB Conc 31.3 g/dl (31.0-35.0); Mean Corpuscular Hemoglobin 26.9 pg (27.0-33.0); Mean Corpuscular Volume 85.9 fL (80.0-98.0); NRBC Abs Auto 0.000 X10*3/uL (0.0-0.012); NRBC Pct Auto 0.0 /100WBC (0.0-0.2); Platelet Count 339 X10*3/uL (160-400); Red Blood Count 3.90 X10*6/uL (4.20-5.50); White Blood Count 8.7 X10*3/uL (4.8-10.8)
[2025-04-18 12:06] LABS: Iron 54 mcg/dL (30-160); Percent Iron Saturation 19 % (15-50); Total Iron Binding Capacity 282 mcg/dL (228-428); Unsaturated Iron Binding 228 ug/dL
== END 2025-04-18 10:09 | disposition home or self-care (01) ==
LOC: HO.LAB 10:08
PROVIDERS: PCP Internal Medicine; Visit Provider Internal Medicine
DX: Z00.00 Encounter for general adult medical examination without abnormal findings (principal); D64.9 Anemia, unspecified; G43.909 Migraine, unspecified, not intractable, without status migrainosus; E66.9 Obesity, unspecified; Z68.36 Body mass index [BMI] 36.0-36.9, adult; F32.0 Major depressive disorder, single episode, mild; Z71.3 Dietary counseling and surveillance
CPT/HCPCS: 36415; 83540; 85025; 96127; 99212; 99395

== ENCOUNTER 2025-04-18 10:08 | Outpatient (AMB) | payer OTHER, SELFPAY ==
[2025-04-18 10:12] VITALS: BP 120/90; PULSE 90; O2SAT 97; BMI 36.8
--- NOTE | 2025-04-18 10:12 | A.OFFPC_ITS ---
Vital Signs 04/18/25 10:12 Height 5 ft 3 in Weight 208 lb BMI 36.8 BP 120/90 H Blood Pressure Location Lt brachial Position Sitting Pulse 90 Pulse Source Pulse Oximeter Pulse Oximetry (%) 97 Oxygen Delivery Method Room Air Intake Visit Reasons: Annual exam Feed Weigher Required: No Accompanied by: Self / Same As Patient Allergies No Known Allergies Allergy (Verified 04/18/25 10:23) Medication List - Last Reconciled 04/18/25 by Rosalie Cantu MD cetirizine 10 mg PO DAILY PRN ferrous sulfate 325 mg PO DAILY 90 days fluoxetine mg PO DAILY fluticasone propion-salmeterol 250-50 mcg/dose (Advair Diskus) 1 ea inhalation BID 30 days lorazepam 1 mg PO DAILY PRN prazosin 2 mg PO BID risperidone 3 mg PO BEDTIME sumatriptan succinate mg PO Tobacco use date assessed: 04/18/25 Dental Screening Dental Screen Date: 04/18/25 Did you have a dental visit in the last 12 months?: Yes Did you have a dental problem in the last 6 months where you did not have access to dental care?: No Was dental information given to patient?: Patient has dentist HPI HPI Comments History of Present Illness Details The patient is a 40-year-old female presenting for an annual physical examination and management of chronic conditions. The patient has a history of Human Papillomavirus (HPV) infection, for which a biopsy was performed. She was scheduled for a follow-up appointment, which was rescheduled. The patient has been diagnosed with anemia, with a hemoglobin level that improved from 9.8 to 10.8. She was advised to take iron supplements daily, although she mentioned she is no longer receiving them. The patient is currently managing depression with fluoxetine and is under the care of a mental health professional at [facility]. Her PHQ-9 score is 14, indicating moderate depression. The patient has asthma and uses Advair daily. She was advised to continue using the powder form of the inhaler as it is more effective for her condition. The patient experiences anxiety and has lorazepam prescribed for use as needed. The patient has a history of migraines and requires a refill of sumatriptan. In terms of family history, her mother has diabetes and hypertension, while her father has no known health issues. The patient does not smoke and consumes alcohol approximately once or twice a month. [facility] Medical History Anxiety Migraines HPV in female Surgical History No pertinent past surgical history Family History Mother Diabetes Hypertension Arthritis Father No problems noted. Family/Other Mental health disorder Substance use disorder Social History Household Members: Family Housing: Apartment Alcohol intake: current Alcohol intake frequency: a few times a month Alcohol type: beer and hard liquor Patient Tobacco Use Status: Never used Tobacco e-Cigarette/Vaping Use: Never Used Second Hand Smoke Exposure: No service: No Current occupational status: unemployed Gender identity: Female Cognitive needs: No Hearing needs: No Vision needs: No Questionnaire PHQ-9 Over the last 2 weeks, how often have you been bothered by any of the following problems? 1. Little interest or pleasure in doing things: several days 2. Feeling down, depressed, or hopeless: several days 3. Trouble falling or staying asleep, or sleeping too much: more than half the days 4. Feeling tired or having little energy: more than half the days 5. Poor appetite or overeating: more than half the days 6. Feeling bad about yourself - or that you are a failure or have let yourself or your family down: more than half the days 7. Trouble concentrating on things, such as reading the newspaper or watching television: more than half the days 8. Moving or speaking so slowly that other people could have noticed. Or the opposite - being so fidgety or restless that you have been moving around a lot more than usual: more than half the days 9. Thoughts that you would be better off or of hurting yourself in some way: not at all Total score: 14 Depression Screening Interpretation: Positive Depression Screening Follow-up: Existing condition, In treatment, Community Mental Health Worker F/U and Follow- up Visit Requested Depression Screening Done: Yes 36793 - PHQ-9 Billing: Yes Source: Developed by Drs. Ernie Roberts, Yesy HookJaved and colleagues, with an educational fiona from [employer]. Thrive Questionnaire Date Thrive assessed: 04/18/25 I am a: Patient What is your living situation today?: I have a steady place to live Within the past 12 months, did the food you bought not last and you didn't have the money to get more?: Never true Within the past 12 months, did you worry whether your food would run out before you got money to buy more?: Never true Do you have trouble paying for medicines?: No Do you have trouble getting transportation to medical appointments?: No Do you have trouble paying your heating and electricity bill?: No Do you have trouble taking care of your child, family member or friend?: No Do you have trouble with day-to-day activities such as bathing, preparing meals, shopping, managing finances, etc.?: No Are you currently unemployed and looking for a job?: No Are you interested in more education?: No Please select the resources that you would like help with: None Currently or been in a relationship where the following occur: No concerns reported THRIVE Score: 0 AUDIT C Alcohol Use Questionnaire (AUDIT-C) 1. How often do you have a drink containing alcohol?: 2-4 times a month 2. How many drinks containing alcohol do you have on a typical day when you are drinking?: 1 or 2 3. How often do you have six or more drinks on one occasion?: Less than monthly Total Score: 3 ENIO-7 AMB Questionnaire ENIO-7 Date ENIO - 7 assessed: 04/18/25 Feeling nervous, anxious, or on edge: 2 = More than half the days Not being able to stop or control worryin = More than half the days Worrying too much about different things: 2 = More than half the days Trouble relaxin = More than half the days Being so restless that it is hard to sit still: 1 = Several days Becoming easily annoyed or irritable: 2 = More than half the days Feeling afraid as if something awful might happen: 2 = More than half the days Total ENIO-7 score (0-4 normal; 5-9 mild; 10-14 moderate; 15-21 severe): 13 Source: Developed by Drs. Ernie Roberts, Javed Quevedo and colleagues, with an educational fiona from [employer]. ENIO-7 Assessment Billing ENIO-7 Assessment Tool: ENIO-7 Assessment 65864 Review of Systems Const All systems reviewed & are unremarkable except as noted in HPI and below Card Denies chest pain at rest, Denies chest pain with activity, Denies edema, Denies irregular heart rhythm, Denies claudication, Denies dyspnea, Denies dyspnea on exertion, Denies orthopnea, Denies paroxysmal nocturnal dyspnea and Denies slow heart rate Resp Denies cough, Denies dyspnea and Denies dyspnea on exertion GI Denies abdominal pain, Denies change in bowel habits, Denies excessive flatus, Denies nausea and Denies vomiting Denies urinary incontinence, Denies urinary hesitancy and Denies urinary urgency Musc Denies atrophy, Denies deformity and Denies limited range of motion Physical exam (Primary Care) Vital Signs: Last Vital Signs Pulse 90 04/18/25 10:12 BP 120/90 H 04/18/25 10:12 Pulse Ox 97 04/18/25 10:12 Oxygen Delivery Method Room Air 04/18/25 10:12 BMI result Body Mass Index 36.8 BMI Assessment/Plan discussion: High BMI High, discussed plan: lifestyle, weight reduction, dietary and physical activity Tobacco/Smoking Status: Tobacco use Status Tobacco use date assessed 04/18/25 04/18/25 10:16 Patient Tobacco Use Status Never used Tobacco 04/18/25 10:16 e-Cigarette/Vaping Use Never Used 04/18/25 10:16 PHQ-9: PHQ-9 Score PHQ-9: Total score 14 04/18/25 10:16 Depression Screening Interpretation: Positive Depression Screening Follow-up: Existing condition, In treatment, Community Mental Health Worker F/U and Follow- up Visit Requested Thrive Assessment: Date of Thrive Assessment Date Thrive assessed 04/18/25 04/18/25 10:16 Currently or been in a relationship where the following occur: No concerns reported HENMT Head: Yes normal to inspection, Yes normocephalic and Yes atraumatic Ears: external ears normal Eyes General: appearance normal, both eyes and all related structures Eyelids: Yes eyelids normal Conjunctivae: conjunctivae normal Neck Neck: Yes normal visual inspection and Yes supple Resp Effort & Inspection: normal respiratory effort Auscultation: clear to auscultation bilaterally Cardio Jugular venous distension: no JVD Rate: regular rate Rhythm: regular rhythm Heart sounds: S1 normal heart sound present and S2 normal heart sound present GI Inspection: Yes normal to inspection Palpation (GI): Soft to palpation and nontender Auscultation: normal bowel sounds Skin General skin exam: no rashes or lesions noted Neuro General: no focal motor deficits Extrem General: Yes full ROM Psych Appearance: grossly normal Coding Level of Care Code Est Pt Level 4 (56044) Est Pt Prev Care 18-39y(59334) Diagnoses Physical exam Z00.00 Migraines G43.909 Anemia D64.9 Class 2 obesity with body mass index (BMI) of 36.0 to 36.9 in adult E66.9; Z68.36 Mild major depression F32.0 Additional Codes PHQ-9 - 68974 - PHQ-9 Billing: Yes ([id number]) ENIO-7 Assessment Billing - ENIO-7 Assessment Tool: ENIO-7 Assessment [id number] ([id number]) Time Spent (min) 35 Assessment & Plan Assessment & Plan (1) Physical exam: Code(s): Z00.00 - Encounter for general adult medical examination without abnormal findings Category: Medical (2) Migraines: Code(s): G43.909 - Migraine, unspecified, not intractable, without status migrainosus Category: Medical (3) Anemia: Code(s): D64.9 - Anemia, unspecified Category: Medical (4) Class 2 obesity with body mass index (BMI) of 36.0 to 36.9 in adult: Code(s): E66.9 - Obesity, unspecified; Z68.36 - Body mass index [BMI] 36.0-36.9, adult Category: Medical (5) Mild major depression: Code(s): F32.0 - Major depressive disorder, single episode, mild Category: Medical Plan The patient will continue with her current medications for depression and anxiety, including fluoxetine and lorazepam as needed. A refill for sumatriptan will be provided for migraine management. The patient is advised to maintain her asthma management with Advair and to continue using the powder form of the inhaler. Her anemia will be monitored, and a follow-up hemoglobin test will be conducted to assess the need for continued iron supplementation. Preventative care measures include ensuring vaccinations are up to date, with the next tetanus booster due in 2026. Patient was informed and verbally consented to the use of an ambient scribe for clinic note documentation during this visit. Orders: Orders Complete Blood Count Auto Diff Today D64.9 - Anemia, unspecified IRON PROFILE Today D64.9 - Anemia, unspecified Referrals Medical Weight Management Referral E66.9 - Obesity, unspecified, Z68.36 - Body mass index [BMI] 36.0-36.9, adult Medications: Changed From sumatriptan succinate PO G43.909 - Migraine, unspecified, not intractable, without status migrainosus To sumatriptan succinate 25 mg PO ONCE PRN 9 tabs 6RF migraine headache 30 days G43.909 - Migraine, unspecified, not intractable, without status migrainosus
--- OUTSIDE RECORDS SUMMARY | 2025-04-18 10:55 | XMS_ITS | Clinical Summary ---
Author Organization [facility] ity Address [address] [place] [address] Care Team Providers Care [facility] Counselor Name Role Phone Rosalie Cantu MD Primary Care Provider [phone] Social History Tobacco Use Types Packs/Day Years [...] Vaccine ( - 2023-2 5 season) 2024 Depression Screening 09/21/2024 Influenza Vaccine (#1) 2025 06/30/2017 DTaP,Tdap,and Td Vaccines (2 - Td [...] age to complete this topic Meningococcal B Vaccine Aged Out No l onger eligible based on patient's age to complete this topic Pneumococcal Vaccine: Pediat rics (0 to 5 Years) and At-Risk Patients (6 to 49 Years) Aged Out No longer eligi ble based on patient's age to complete this topic RSV Immunization Patients Un marcus 20 months Aged Out No longer eligible b ased on patient's age to complete this topic Varicella Vaccines Aged Out No longer eligible based on patient's age to complete this topic Care Teams [facility] Counsel[facility] Relationship Specialty Start Date End Date Rosalie Cantu MD [address] [place] [address] , [address] [facility] D/B/A: [facility] RUFINO Harrison PCP - General Internal Medicine 01/07/17
== END 2025-04-18 10:36 | disposition home or self-care (01) ==
LOC: HO.HMCH 10:09
PROVIDERS: PCP Internal Medicine; Visit Provider Internal Medicine
DX: Z00.00 Encounter for general adult medical examination without abnormal findings (principal); D64.9 Anemia, unspecified; G43.909 Migraine, unspecified, not intractable, without status migrainosus; E66.9 Obesity, unspecified; Z68.36 Body mass index [BMI] 36.0-36.9, adult; F32.0 Major depressive disorder, single episode, mild